=== PATIENT | male | born 1955 | race Caucasian/White ===

== ENCOUNTER 2019-04-23 21:01 | Inpatient (IN) ==
--- NOTE | 2019-04-23 21:50 | XRay Report ---
XR chest 1V portable CLINICAL HISTORY: Fever COMPARISON STUDY: No previous studies for comparison. FINDINGS: The heart is borderline enlarged. There is a right-sided A-Port catheter. There is no failu re. There are basilar opacities, atelectatic versus infectious/inflammatory[. No pleural effusions ar e visualized IMPRESSION: 1. Mild basilar opacities left greater than right. These could be atelectatic or infectious/inflammat ory. Clinical and radiographic follow-up is recommended Electronically signed by: Aidan Marques M.D. 04/23/2019 9:48 PM
[2019-04-23 22:34] LABS: BUN Creatinine Ratio 18.9 (10-20); Calcium 7.8 mg/dl (8.5-10.1); Creatinine Clr Calc Pharmacy 81.9 ml/min; Est GFR (African American) 66.1; Potassium 3.7 mmol/L (3.5-5.1)
[2019-04-23 22:37] LABS: Albumin Globulin Ratio 1.2 (0.9-2); Bilirubin,Total 0.4 mg/dl (0.2-1); Globulin 2.5 gm/dl (2.5-4.0); Total Protein 5.5 gm/dl (6.4-8.2)
[2019-04-23 22:38] LABS: Hematocrit (blood only) 32.2 % (42-52); Hemoglobin 11.2 g/dL (14.0-18.0); Mean Corpuscular Hgb Conc 34.8 g/dL (32-36); Mean Corpuscular Volume 81.3 fL (80-100); Mean Platelet Volume 8.2 fL (7.4-10.4); Platelet Count 99 K/uL (130-400); RDW Coefficient of Variation 13.1 % (11.5-14.5); RDW Standard Deviation 39.3 fL (36.4-46.3); Red Blood Count 3.96 M/uL (4.7-6.1); White Blood Count 4.99 K/uL (4.8-10.8)
[2019-04-23 22:39] LABS: Eosinophils # (auto) 0.05 K/uL (0-0.5); Immature Granulocytes # (auto) 0.06 K/uL (0.00-0.02); Immature Granulocytes % (auto) 1.2 %; Lymphocytes # (auto) 0.42 K/uL (1.2-3.4); Lymphocytes % (auto) 8.4 %; Monocytes # (auto) 0.03 K/uL (0.11-0.59); Monocytes % (auto) 0.6 %; Neutrophils # (auto) 4.43 K/uL (1.4-6.5); Neutrophils % (auto) 88.8 %; Platelet Estimate Decreased (Normal)
[2019-04-23] MEDS ORDERED: ACETAMINOPHEN 500 MG TAB PO STA (22:56)
[2019-04-23 22:58] LABS: Appearance Urine Clear (Clear); Bilirubin Urine Negative (Negative); Blood Urine Negative (Negative); Color Urine Yellow; Glucose Urine UA Negative (Negative); Ketones Urine Negative (Negative); Leukocyte Esterase Urine Negative (Negative); Nitrite Urine Negative (Negative); Protein Urine Negative (Negative); Specific Gravity Urine 1.019 (1.000-1.030); Urobilinogen Urine Positive (Negative); pH Urine 6.5 (4.5-7.5)
[2019-04-24] MEDS ORDERED: CEFEPIME 2,000 MG/20 ML VIAL IV STA (00:05)
[2019-04-24] MEDS ORDERED: DOXYCYCLINE HYCLATE 100 MG in DEXTROSE 5% 100 ML IV STA (00:05)
[2019-04-24 00:52] LABS: Lyme Ab IgG w/WB Rflx Negative (Negative); Lyme Ab IgM w/WB Rflx Negative (Negative)
--- NOTE | 2019-04-24 00:57 | Emergency Department Note ---
Entered by Devon Chawla acting as a scribe for ED Provider Note CHIEF COMPLAINT: Fever HISTORY OF PRESENT ILLNESS: The patient is a 63 year old male who presents to the Emergency Room with complaints of a fever starting [employer]. The patient states he finished up chemotherapy Saturday night after doing chemotherapy for 4 days. He notes he given Neulasta and was given Rituxan. He notes he does not feel that bad right now. He states he had chills earlier. He notes he found out about the Lymphoma a month ago. Pt denies LOC, headache, diaphoresis, visual changes, neck pain, chest pain, breathing difficulties, nausea, vomiting, abdominal pain, back pain, melena, hematochezia, urinary symptoms, numbness, weakness, lymphadenopathy, rash, or other complaints. He notes he follows up with oncology at [place]. He notes he took 2 extra strength Tylenol at 1930. REVIEW OF SYSTEMS: See HPI for pertinent positives and negatives. A total of ten systems were reviewed and were otherwise negative. PMHx/PSHx: Hodgkin lymphoma SOCIAL HISTORY: Patient lives at home. PHYSICAL EXAM: GENERAL: Awake, alert, well-appearing, in no distress HENT: Normocephalic, atraumatic. Oropharynx unremarkable. EYES: PERRL. Normal conjunctiva. Sclera non-icteric. NECK: Inspection normal. Non-tender. Supple. No nuchal rigidity. FROM. No masses. RESPIRATORY: Clear to auscultation. No wheezes. No rales. Normal respiratory effort. CARDIAC: Tachycardic rate. Normal rhythm. No murmurs. No rubs. Extremities warm and well perfused. Pulses equal. No JVD. GI: Soft, non-distended. No tenderness to palpation. No rebound or guarding. No masses. RECTAL: Deferred. MUSCULOSKELETAL: Atraumatic. Chest examination reveals no tenderness. The back is symmetrical on inspection without obvious abnormality. There is no CVA tenderness to palpation. No joint edema. 1+ edema in upper extremities bilaterally. Port in upper chest. LOWER EXTREMITIES: Calves are equal size bilaterally and non-tender. No edema. No discoloration. 1+ edema bilaterally. NEURO: Normal sensorium. No sensory or motor deficits noted. SKIN: No rash or jaundice noted. EMERGENCY DEPARTMENT COURSE: 2201: Past medical records reviewed. The patient was evaluated in room B5, and a complete history and physical examination were performed. 2355: I spoke with Dr. Patton - Hematology and Oncology. He states the patient should be given Cefepime and doxycycline. He agrees the patient should be admitted given the extensive chemotherapy. 0022: I discussed the patient's case with Dr. Call - [facility] Hospitalist. He will evaluate the patient for further management MEDICAL DECISION MAKING: B5 Prior records/ancillary studies reviewed. Medications, labs and treatment reviewed from the [facility] hospitalization. Triage Nursing notes reviewed and agree them. Additional history obtained from patient's . The patient's history was concerning for fever and recent chemotherapy. Differential diagnosis: Etiologies such as complication of chemotherapy, febrile neutropenia, otitis, pharyngitis, pneumonia, influenza,meningitis, urinary tract infection, sepsis, bacteremia, viral syndrome, as well as others were entertained. Physical examination: As above. ER treatment provided: Oral Tylenol On reassessment the patient felt better. IV cefepime IV doxycycline Diagnostics interpreted by me: The labs revealed mild anemia and thrombocytopenia on CBC. The patient had a left shift on differential. Chemistry panel was unremarkable. LFTs were elevated. Blood cultures done. Urinalysis unremarkable. Lyme and anaplasmosis testing sent. Imaging studies: Chest x-ray questioned basilar inflammatory change. Consultation: A consultation was placed with [facility] hematology oncology. The case was disc ussed and diagnostics were reviewed. Given the patient's fever and Reiger's along with his significant chemotherapy administration admission for IV antibiotics and monitoring was recommended. A consultation was placed with the [facility] hospitalist. Rate the case was discussed and diagnostics were reviewed. The patient was evaluated in the ER for further treatment. IMPRESSION: Fever, chemotherapy patient, elevated LFTs, pneumonia PLAN: Admit The scribe's documentation has been prepared under my direction and personally reviewed by me in its entirety. I confirm that the note above accurately reflects all work, treatment, procedures, and medical decision making performed by me. Impression & Plan Fever, History of chemotherapy, Elevated LFTs, PNA (pneumonia) Past Med/Surg History Medical History Hodgkin lymphoma Surgical History No pertinent past surgical history Social History Feels Safe at Home: Yes Smoking Status: Never smoker Results & Data Vital Signs Vital Signs - 24 hr 04/23/19 21:04 04/23/19 21:50 04/23/19 21:54 Temperature 37.6 C H 38.0 C H Temperature Source Oral Oral Sepsis Recent Fever Within 48 Hours Yes Sepsis New/Unexplained Change in Mental Status No Sepsis Action Taken by Nursing No Action Required Pulse Rate 120 H 103 H Pulse Rate from SpO2 Sensor 103 H Respiratory Rate 20 25 H Respiratory Effort / Characteristics Non-Labored Spontaneous Respiratory Depth Normal Blood Pressure 167/76 H 169/80 H Blood Pressure Mean 106 109 Blood Pressure Position Sitting Pulse Oximetry 92 94 Oxygen Delivery Method Room Air Room Air 04/23/19 22:00 04/23/19 23:00 04/23/19 23:05 Temperature 37.8 C H Temperature Source Oral Sepsis Recent Fever Within 48 Hours Sepsis New/Unexplained Change in Mental Status Sepsis Action Taken by Nursing Pulse Rate 101 H 90 Pulse Rate from SpO2 Sensor 102 H 91 H Respiratory Rate 24 20 Respiratory Effort / Characteristics Respiratory Depth Blood Pressure 177/85 H 159/70 H Blood Pressure Mean 115 99 Blood Pressure Position Pulse Oximetry 94 96 Oxygen Delivery Method Room Air Room Air 04/23/19 23:30 04/24/19 00:00 04/24/19 00:30 Temperature Temperature Source Sepsis Recent Fever Within 48 Hours Sepsis New/Unexplained Change in Mental Status Sepsis Action Taken by Nursing Pulse Rate 91 H 93 H 97 H Pulse Rate from SpO2 Sensor 92 H 92 H Respiratory Rate 23 25 H 27 H Respiratory Effort / Characteristics Respiratory Depth Blood Pressure 179/80 H 161/77 H 163/71 H Blood Pressure Mean 113 105 101 Blood Pressure Position Pulse Oximetry 96 94 Oxygen Delivery Method Home Medications Current Medication List: was personally reviewed by me Laboratory Data Attestation: I reviewed the patient's lab results. Result diagrams: 04/23/19 22:02 04/23/19 22:02 Lab Results 04/23/19 04/23/19 04/23/19 Range/Units 22:02 22:02 22:03 WBC 4.99 (4.8-10.8) K/uL RBC 3.96 L (4.7-6.1) M/uL Hgb 11.2 L (14.0-18.0) g/dL Hct 32.2 L (42-52) % MCV 81.3 (80-100) fL MCH 28.3 (25-34) pg MCHC 34.8 (32-36) g/dL RDW Std Deviation 39.3 (36.4-46.3) fL RDW Coeff of [place] 13.1 (11.5-14.5) % Plt Count 99 L (130-400) K/uL MPV 8.2 (7.4-10.4) fL Immature Gran % (Auto) 1.2 % Neut % (Auto) 88.8 % Lymph % (Auto) 8.4 % [place] % (Auto) 0.6 % Eos % (Auto) 1.0 % Baso % (Auto) 0.0 % Immature Gran # (Auto) 0.06 H (0.00-0.02) K/uL Neut # (Auto) 4.43 (1.4-6.5) K/uL Lymph # (Auto) 0.42 L (1.2-3.4) K/uL [place] # (Auto) 0.03 L (0.11-0.59) K/uL Eos # (Auto) 0.05 (0-0.5) K/uL Baso # (Auto) 0.00 (0-0.2) K/uL Platelet Estimate Decreased L (Normal) Sodium 141 (136-145) mmol/L Potassium 3.7 (3.5-5.1) mmol/L Chloride 104 (98-107) mmol/L Carbon Dioxide 32 (21-32) mmol/L Anion Gap 5.0 (3-11) BUN 25 H (7-18) mg/dl Creatinine 1.32 (0.6-1.4) mg/dl Est Cr Clr Drug Dosing 81.9 ml/min Est GFR ( Amer) 66.1 Est GFR (Non-Af Amer) 57.0 BUN/Creatinine Ratio 18.9 (10-20) Glucose 164 H (70-99) mg/dl POC Lactic Acid Darrel 1.87 H (0.90-1.70) mmol/L Calcium 7.8 L (8.5-10.1) mg/dl Total Bilirubin 0.4 (0.2-1) mg/dl AST 130 H (15-37) U/L ALT 395 H (12-78) U/L Alkaline Phosphatase 84 (45-117) U/L Total Protein 5.5 L (6.4-8.2) gm/dl Albumin 3.0 L (3.4-5.0) gm/dl Globulin 2.5 (2.5-4.0) gm/dl Albumin/Globulin Ratio 1.2 (0.9-2) Urine Color Urine Appearance (Clear) Urine pH (4.5-7.5) Ur Specific [place] (1.000-1.030) Urine Protein (Negative) Urine Glucose (UA) (Negative) Urine Ketones (Negative) Urine Blood (Negative) Urine Nitrite (Negative) Urine Bilirubin (Negative) Urine Urobilinogen (Negative) Ur Leukocyte Esterase (Negative) Lyme Disease IgG Ab (Negative) Lyme Disease IgM Ab (Negative) 04/23/19 04/23/19 Range/Units 22:04 22:35 WBC (4.8-10.8) K/uL RBC (4.7-6.1) M/uL Hgb (14.0-18.0) g/dL Hct (42-52) % MCV (80-100) fL MCH (25-34) pg MCHC (32-36) g/dL RDW Std Deviation (36.4-46.3) fL RDW Coeff of [place] (11.5-14.5) % Plt Count (130-400) K/uL MPV (7.4-10.4) fL Immature Gran % (Auto) % Neut % (Auto) % Lymph % (Auto) % [place] % (Auto) % Eos % (Auto) % Baso % (Auto) % Immature Gran # (Auto) (0.00-0.02) K/uL Neut # (Auto) (1.4-6.5) K/uL Lymph # (Auto) (1.2-3.4) K/uL [place] # (Auto) (0.11-0.59) K/uL Eos # (Auto) (0-0.5) K/uL Baso # (Auto) (0-0.2) K/uL Platelet Estimate (Normal) Sodium (136-145) mmol/L Potassium (3.5-5.1) mmol/L Chloride (98-107) mmol/L Carbon Dioxide (21-32) mmol/L Anion Gap (3-11) BUN (7-18) mg/dl Creatinine (0.6-1.4) mg/dl Est Cr Clr Drug Dosing ml/min Est GFR ( Amer) Est GFR (Non-Af Amer) BUN/Creatinine Ratio (10-20) Glucose (70-99) mg/dl POC Lactic Acid Darrel (0.90-1.70) mmol/L Calcium (8.5-10.1) mg/dl Total Bilirubin (0.2-1) mg/dl AST (15-37) U/L ALT (12-78) U/L Alkaline Phosphatase (45-117) U/L Total Protein (6.4-8.2) gm/dl Albumin (3.4-5.0) gm/dl Globulin (2.5-4.0) gm/dl Albumin/Globulin Ratio (0.9-2) Urine Color Yellow Urine Appearance Clear (Clear) Urine pH 6.5 (4.5-7.5) Ur Specific [place] 1.019 (1.000-1.030) Urine Protein Negative (Negative) Urine Glucose (UA) Negative (Negative) Urine Ketones Negative (Negative) Urine Blood Negative (Negative) Urine Nitrite Negative (Negative) Urine Bilirubin Negative (Negative) Urine Urobilinogen Positive H (Negative) Ur Leukocyte Esterase Negative (Negative) Lyme Disease IgG Ab Negative (Negative) Lyme Disease IgM Ab Negative (Negative) Administered Medications Doxycycline Hyclate 100 mg/ (Dextrose) 110 mls @ 50 mls/hr IV NOW STA Stop: 04/24/19 02:16 Last Admin: 04/24/19 00:23 Dose: 50 mls/hr Documented by: [id number] Discontinued Medications Acetaminophen (Tylenol) 1,000 mg PO NOW STA Stop: 04/23/19 22:57 Last Admin: 04/23/19 23:05 Dose: 1,000 mg Documented by: [id number] Cefepime HCl (Maxipime) 2,000 mg in 20 mls @ 5 mls/min IV NOW STA; Protocol Stop: 04/24/19 00:08 Last Admin: 04/24/19 00:23 Dose: 5 mls/min Documented by: [id number] Imaging Data Radiologist's Impression: Radiology results as stated below per my review and the radiologist's interpretation: XR chest 1V portable CLINICAL HISTORY: Fever COMPARISON STUDY: No previous studies for comparison. FINDINGS: The heart is borderline enlarged. There is a right-sided A-Port catheter. There is no failure. There are basilar opacities, atelectatic versus infectious/inflammatory[. No pleural effusions are visualized IMPRESSION: 1. Mild basilar opacities left greater than right. These could be atelectatic or infectious/inflammatory. Clinical and radiographic follow-up is recommended Electronically signed by: Aidan Marques M.D. 04/23/2019 9:48 PM Blood Pressure Blood Pressure Findings: Elevated blood pressure Blood Pressure Disposition: further management by hospitalist Discharge Plan Visit Data Chief Complaint: Fever Stated Complaint: FEVER 101.2 - CHEMO PT ED Provider: Cristóbal Gregory Discharge Problem: Fever, History of chemotherapy, Elevated LFTs, PNA (pneumonia) Patient Disposition: Being Evaluated by Hospitalist Forms Stand Alone Forms: [facility] Prescriptions Prescriptions: No Action fluconazole 100 mg tablet 200 mg PO DAILY RF: 0 prednisone 10 mg tablet 75 mg PO BID RF: 0 ondansetron HCl 8 mg tablet 8 mg PO Q8 PRN (Reason: Nausea) RF: 0 prochlorperazine maleate 10 mg tablet 10 mg PO Q6 PRN (Reason: Nausea) RF: 0 sulfamethoxazole-trimethoprim 800-160 mg tablet 1 tab PO DAILY RF: 0 pravastatin 80 mg tablet 80 mg PO HS RF: 0 allopurinol 300 mg tablet 300 mg PO DAILY RF: 0 acyclovir 200 mg capsule 400 mg PO BID RF: 0 losartan 100 mg tablet 100 mg PO DAILY RF: 0 oxycodone 5 mg tablet 5 mg PO Q4 PRN (Reason: Pain) RF: 0 tramadol 50 mg tablet 25 mg PO Q6 PRN (Reason: Pain) RF: 0 docusate sodium 100 mg Capsule 100 mg PO BID RF: 0 coenzyme Q10 400 mg Capsule 400 mg PO DAILY RF: 0 multivitamin Tablet 1 tab PO DAILY RF: 0 omega-3 fatty acids [Fish Oil Concentrate] 1,000 mg Capsule 1,000 mg PO BID RF: 0 sennosides [senna] 8.6 mg Tablet 17.2 mg PO HS PRN (Reason: Constipation) RF: 0 Referrals Referrals: Armando Hayward MD [Primary Care Provider] - Discharge Problem: Fever Qualifiers: Fever type: unspecified Qualified Code(s): R50.9 - Fever, unspecified PNA (pneumonia) Qualifiers: Pneumonia type: due to unspecified organism Laterality: left Lung location: unspecified part of lung Qualified Code(s): J18.9 - Pneumonia, unspecified organism The scribe's documentation has been prepared under my direction and personally reviewed by me in its entirety. I confirm that the note above accurately reflects all work, treatment, procedures, and medical decision making performed by me.
--- NOTE | 2019-04-24 01:13 | History & Physical Report ---
Date of Service April 24, 2019 Assessment & Plan (1) Severe sepsis: SIRS plus lactic acid elevation Immunocompromised patient NHL ongoing chemotherapy No obvious focus for now hypertension, elevated secondary to illness hyperlipidemia on statin Rx prediabetes, recent outpatient hemoglobin A1c was 6.12 October 2018 chronic anemia, hemoglobin at baseline Thrombocytopenia likely secondary to chemotherapy rule out HIT Abnormal LFTs attributed to Rituxan as per patient records Medical telemetry Cultures, Cefepime, Vancomycin IVF, follow lactic acid Facilitate home BP meds ISS BG goal 1 40-1 80, update hemoglobin A1c HIT screen DVT prophylaxis. SCDs RE thrombocytopenia Full code History of Present Illness Chief Complaint: Fever, chills Primary Care Provider: Armando Hayward MD History obtained from patient, family, and records. Medical history significant for NHL ongoing chemotherapy, hypertension, hyperlipidemia, prediabetes, chronic anemia baseline hemoglobin of 11. Recent confinement [facility] last week for first cycle of chemotherapy for newly diagnosed NHL. Improved neck adenopathy size as per patient. Abnormal LFTs noted yesterday on outpatient blood work attributed to possible Rituxan side effect. Yesterday, patient noted fever spikes at home 101.2 along with chills. No chest pain, S OB, abdominal pain, diarrhea, dysuria, unusual leg swelling. At the ER, patient received Doxycycline, Cefepime for sepsis. Medical History as above Surgical History : Lymph node biopsy, vascular device placement Family History : Colon cancer, breast cancer, melanoma Personal/Social history : Non-smoker, occasional EtOH intake, transportation work Allergies Allergy/AdvReac Type Severity Reaction Status Date / Time No Known Allergies Allergy Unverified 04/23/19 21:07 Home Medications Home Medications Medication Instructions Recorded Confirmed Type acyclovir 400 mg PO BID 04/23/19 04/24/19 History allopurinol 300 mg PO DAILY 04/23/19 04/24/19 History fluconazole 200 mg PO DAILY 04/23/19 04/24/19 History losartan 100 mg PO DAILY 04/23/19 04/24/19 History ondansetron HCl 8 mg PO Q8 PRN 04/23/19 04/24/19 History oxycodone 5 mg PO Q4 PRN 04/23/19 04/24/19 History pravastatin 80 mg PO HS 04/23/19 04/24/19 History prednisone 75 mg PO BID 04/23/19 04/24/19 History prochlorperazine maleate 10 mg PO Q6 PRN 04/23/19 04/24/19 History sulfamethoxazole-trimethoprim 1 tab PO DAILY 04/23/19 04/24/19 History tramadol 25 mg PO Q6 PRN 04/23/19 04/24/19 History coenzyme Q10 400 mg PO DAILY 04/24/19 04/24/19 History docusate sodium 100 mg PO BID 04/24/19 04/24/19 History multivitamin 1 tab PO DAILY 04/24/19 04/24/19 History omega-3 fatty acids [Fish Oil 1,000 mg PO BID 04/24/19 04/24/19 History Concentrate] sennosides [senna] 17.2 mg PO HS PRN 04/24/19 04/24/19 History Past Med/Surg History Medical History Hodgkin lymphoma Surgical History No pertinent past surgical history Social History Preferred Language: Icelandic Communication Ability: Effective Beliefs That Will Affect Care: None marital status: Current Living Situation: Spouse Feels Safe at Home: Yes Safety Concerns: Feels Safe At This Time Smoking Status: Never smoker Hx Alcohol Use: No Hx Substance Use: No Review of Systems Review of Systems: As per HPI, all 10 systems reviewed, all other ROS negative Physical Exam Physical Exam: GENERAL: Comfortable, slightly anxious, obese, no respiratory distress SKIN: Pallor , warm HEENT: Alopecia, pale palpebral conjunctivae, no ptosis, lower two thirds of face concealed by mask NECK : Supple, short, no tenderness CHEST : CTA, no tenderness HEART : Tachycardic , no obvious murmurs ABDOMEN: Some distention, nontender EXTREMITIES : Minimal LE swelling, no LE tenderness, no other conspicuous deformities noted NEUROLOGIC : Coherent, no facial asymmetry, no other gross focality Results & Data Vital Signs (Past 12 Hours) Vital Signs Temp Pulse Resp BP Pulse Ox 04/24/19 00:30 97 H 27 H 163/71 H 04/24/19 00:00 93 H 25 H 161/77 H 94 04/23/19 23:30 91 H 23 179/80 H 96 04/23/19 23:05 37.8 C H 04/23/19 23:00 90 20 159/70 H 96 04/23/19 22:00 101 H 24 177/85 H 94 04/23/19 21:54 103 H 25 H 169/80 H 94 04/23/19 21:50 38.0 C H 04/23/19 21:04 37.6 C H 120 H 20 167/76 H 92 Laboratory Results Laboratory Results WBC 4.99 K/uL (4.8-10.8) 04/23/19 22:02 RBC 3.96 M/uL (4.7-6.1) L 04/23/19 22:02 Hgb 11.2 g/dL (14.0-18.0) L 04/23/19 22:02 Hct 32.2 % (42-52) L 04/23/19 22:02 MCV 81.3 fL (80-100) 04/23/19 22:02 MCH 28.3 pg (25-34) 04/23/19 22:02 MCHC 34.8 g/dL (32-36) 04/23/19 22:02 RDW Std Deviation 39.3 fL (36.4-46.3) 04/23/19 22:02 RDW Coeff of [place] 13.1 % (11.5-14.5) 04/23/19 22:02 Plt Count 99 K/uL (130-400) L 04/23/19 22:02 MPV 8.2 fL (7.4-10.4) 04/23/19 22:02 Immature Gran % (Auto) 1.2 % 04/23/19 22:02 Neut % (Auto) 88.8 % 04/23/19 22:02 Lymph % (Auto) 8.4 % 04/23/19 22:02 [place] % (Auto) 0.6 % 04/23/19 22:02 Eos % (Auto) 1.0 % 04/23/19 22:02 Baso % (Auto) 0.0 % 04/23/19 22:02 Immature Gran # (Auto) 0.06 K/uL (0.00-0.02) H 04/23/19 22:02 Neut # (Auto) 4.43 K/uL (1.4-6.5) 04/23/19 22:02 Lymph # (Auto) 0.42 K/uL (1.2-3.4) L 04/23/19 22:02 [place] # (Auto) 0.03 K/uL (0.11-0.59) L 04/23/19 22:02 Eos # (Auto) 0.05 K/uL (0-0.5) 04/23/19 22:02 Baso # (Auto) 0.00 K/uL (0-0.2) 04/23/19 22:02 Platelet Estimate Decreased (Normal) L 04/23/19 22:02 Sodium 141 mmol/L (136-145) 04/23/19 22:02 Potassium 3.7 mmol/L (3.5-5.1) 04/23/19 22:02 Chloride 104 mmol/L (98-107) 04/23/19 22:02 Carbon Dioxide 32 mmol/L (21-32) 04/23/19 22:02 Anion Gap 5.0 (3-11) 04/23/19 22:02 BUN 25 mg/dl (7-18) H 04/23/19 22:02 Creatinine 1.32 mg/dl (0.6-1.4) 04/23/19 22:02 Est Cr Clr Drug Dosing 81.9 ml/min 04/23/19 22:02 Est GFR ( Amer) 66.1 04/23/19 22:02 Est GFR (Non-Af Amer) 57.0 04/23/19 22:02 BUN/Creatinine Ratio 18.9 (10-20) 04/23/19 22:02 Glucose 164 mg/dl (70-99) H 04/23/19 22:02 POC Lactic Acid Darrel 1.87 mmol/L (0.90-1.70) H 04/23/19 22:03 Calcium 7.8 mg/dl (8.5-10.1) L 04/23/19 22:02 Total Bilirubin 0.4 mg/dl (0.2-1) 04/23/19 22:02 AST 130 U/L (15-37) H 04/23/19 22:02 ALT 395 U/L (12-78) H 04/23/19 22:02 Alkaline Phosphatase 84 U/L (45-117) 04/23/19 22:02 Total Protein 5.5 gm/dl (6.4-8.2) L 04/23/19 22: Albumin 3.0 gm/dl (3.4-5.0) L 04/23/19 22:02 Globulin 2.5 gm/dl (2.5-4.0) 04/23/19 22:02 Albumin/Globulin Ratio 1.2 (0.9-2) 04/23/19 22: TSH 2.080 uIu/ml (0.300-4.500) 04/23/19 22:02 Urine Color Yellow 04/23/19 22:35 Urine Appearance Clear (Clear) 04/23/19 22:35 Urine pH 6.5 (4.5-7.5) 04/23/19 22:35 Ur Specific [place] 1.019 (1.000-1.030) 04/23/19 22:35 Urine Protein Negative (Negative) 04/23/19 22:35 Urine Glucose (UA) Negative (Negative) 04/23/19 22:35 Urine Ketones Negative (Negative) 04/23/19 22:35 Urine Blood Negative (Negative) 04/23/19 22:35 Urine Nitrite Negative (Negative) 04/23/19 22:35 Urine Bilirubin Negative (Negative) 04/23/19 22:35 Urine Urobilinogen Positive (Negative) H 04/23/19 22:35 Ur Leukocyte Esterase Negative (Negative) 04/23/19 22:35 Lyme Disease IgG Ab Negative (Negative) 04/23/19 22:04 Lyme Disease IgM Ab Negative (Negative) 04/23/19 22:04 Diagnostic Findings CX-ray: 1. Mild basilar opacities left greater than right. These could be atelectatic or infectious/inflammatory. Clinical and radiographic follow-up is recommended
[2019-04-24] MEDS: LOSARTAN POTASSIUM 50 MG TAB PO SCH (01:50)
[2019-04-24] MEDS ORDERED: SENNA 8.6 MG TAB PO PRN (03:08)
[2019-04-24] MEDS ORDERED: PROMETHAZINE HCL 12.5 MG in SODIUM CHLORIDE 0.9% 50 ML IV PRN (03:08)
[2019-04-24] MEDS ORDERED: DEXTROSE 50% 50 ML SYRINGE IV PRN (03:08)
[2019-04-24] MEDS ORDERED: GLUCOSE 10 TABS/TUBE PO PRN (03:08)
[2019-04-24] MEDS ORDERED: LACTATED RINGER'S 1,000 ML IV ONE (03:08)
[2019-04-24] MEDS ORDERED: GLUCOSE 40% GEL 15 GM TUBE PO PRN (03:08)
[2019-04-24] MEDS ORDERED: GLUCAGON FOR INJ 1 MG VIAL SQ PRN (03:08)
[2019-04-24] MEDS ORDERED: OXYCODONE HCL IR 5 MG TAB (IMMEDIATE RELEASE) PO PRN (03:08)
[2019-04-24] MEDS ORDERED: CARBOHYDRATES FOR HYPOGLYCEMIA PO PRN (03:08)
[2019-04-24] MEDS ORDERED: VANCOMYCIN CONSULT ACTIVE PRN (03:08)
[2019-04-24] MEDS ORDERED: TRAMADOL HCL 50 MG TABLET PO PRN (03:08)
[2019-04-24] MEDS ORDERED: CEFEPIME CONSULT ACTIVE PRN (04:30)
[2019-04-24] MEDS ORDERED: VANCOMYCIN HCL 2,500 MG in SODIUM CHLORIDE 0.9% 500 ML IV ONE (05:00)
[2019-04-24] MEDS: PRAVASTATIN SOD 40 MG TAB PO SCH ×2 (06:38→20:36)
[2019-04-24 07:23] LABS: Hematocrit (blood only) 31.9 % (42-52); Hemoglobin 10.9 g/dL (14.0-18.0); Mean Corpuscular Hgb Conc 34.2 g/dL (32-36); Mean Corpuscular Volume 82.4 fL (80-100); RDW Coefficient of Variation 13.3 % (11.5-14.5); RDW Standard Deviation 40.3 fL (36.4-46.3); Red Blood Count 3.87 M/uL (4.7-6.1); White Blood Count 7.86 K/uL (4.8-10.8)
[2019-04-24 07:33] LABS: Estimated Average Glucose 131 mg/dl; Hemoglobin A1C 6.2 % (4.5-5.6)
[2019-04-24] MEDS: ALLOPURINOL 300 MG TAB PO SCH (07:47)
[2019-04-24] MEDS: ACETAMINOPHEN 325 MG TAB PO PRN ×2 (07:47→19:47)
[2019-04-24] MEDS: MULTIVITAMIN TAB PO SCH (07:47)
[2019-04-24] MEDS: DOCUSATE SODIUM 100 MG CAP PO SCH ×2 (07:48→20:36)
[2019-04-24] MEDS: CEFEPIME 2,000 MG in SYRINGE 7.5 ML IV SCH ×3 (07:48→23:48)
[2019-04-24 07:53] LABS: Mean Platelet Volume 8.2 fL (7.4-10.4); Platelet Count 88 K/uL (130-400)
[2019-04-24 07:54] LABS: Eosinophils # (auto) 0.15 K/uL (0-0.5); Eosinophils % (auto) 1.9 %; Immature Granulocytes # (auto) 0.07 K/uL (0.00-0.02); Immature Granulocytes % (auto) 0.9 %; Lymphocytes # (auto) 0.44 K/uL (1.2-3.4); Lymphocytes % (auto) 5.6 %; Monocytes # (auto) 0.01 K/uL (0.11-0.59); Monocytes % (auto) 0.1 %; Neutrophils # (auto) 7.19 K/uL (1.4-6.5); Neutrophils % (auto) 91.5 %
[2019-04-24 08:01] LABS: Albumin Level 2.9 gm/dl (3.4-5.0); BUN Creatinine Ratio 15.8 (10-20); Creatinine Clr Calc Pharmacy 86.3 ml/min; Est GFR (African American) 71.3; Est GFR (Non-African American) 61.5; Potassium 3.8 mmol/L (3.5-5.1)
[2019-04-24 08:04] LABS: Albumin Globulin Ratio 1.2 (0.9-2); Bilirubin,Total 0.6 mg/dl (0.2-1); Globulin 2.4 gm/dl (2.5-4.0); Total Protein 5.4 gm/dl (6.4-8.2)
[2019-04-24] MEDS: INSULIN ASPART 100 UNITS/ML 3 ML PEN SC SCH ×4 (08:26→20:38)
[2019-04-24] MEDS: FLUCONAZOLE 100 MG TAB PO SCH (08:31)
[2019-04-24] MEDS: ACYCLOVIR 200 MG CAP PO SCH ×2 (08:32→20:36)
--- NOTE | 2019-04-24 14:02 | Pharmacy Report ---
Pharmacy Abx Initial Consult - Date of Service April 24, 2019 - Pharmacy Dosing Scope Date of Consult: 04/24/19 Consultation requested by: Dr. Call Pharmacy is consulted to initiate Vancomycin and Cefepime IV/PO dosing therapy, order appropriate labs and adjust drug dose/frequency. - Subjective The patient is a 63 year old M admitted on 04/24/19 01:15. - Objective Height: 6 ft 3 in Weight: 123.3 kg Vital Signs (Past 12hrs): Vital Signs Temp Pulse Pulse Pulse Resp BP BP 04/24/19 12:00 37.0 C 75 18 04/24/19 10:20 94 H 04/24/19 07:00 39.1 C H 89 20 04/24/19 03:39 93 H 04/24/19 03:30 36.6 C 102 H 19 162/82 H 04/24/19 03:12 37.5 C 91 H 20 173/79 H 04/24/19 02:40 37.8 C H 89 18 164/69 H 04/24/19 02:00 98 H 21 166/68 H 04/24/19 01:57 90 22 165/65 H BP Pulse Ox 04/24/19 12:00 159/74 H 95 04/24/19 10:20 04/24/19 07:00 149/55 H 94 04/24/19 03:39 04/24/19 03:30 94 04/24/19 03:12 94 04/24/19 02:40 96 04/24/19 02:00 96 04/24/19 01:57 95 Lab Results (24hrs): Laboratory Tests (24 Hours) 04/24/19 04/24/19 04/23/19 07:10 07:10 22:02 WBC 7.86 Neut # (Auto) 7.19 H Creatinine 1.24 1.32 Est Cr Clr Drug Dosing 86.3 81.9 04/23/19 22:02 WBC 4.99 Neut # (Auto) 4.43 Creatinine Est Cr Clr Drug Dosing Micro Results: 04/23/19 22:16 Aerobic Blood Culture - Pending Blood Anaerobic Blood Culture - Pending 04/23/19 22:02 Aerobic Blood Culture - Pending Blood Anaerobic Blood Culture - Pending - Risk Factors for Resistance * Immunocompromised (chemotherapy) * Anti-infective use within the last 90 days: chronic prophylaxis with Acyclovir and Diflucan - Assessment & Plan Assessment 63 year old M admitted 04/23/19 with sepsis/fever on chemotherapy Pertinent past medical history includes Non-Hodgkin's Lymphoma currently being treated with Rituxan Patient was febrile upon admission but was not neutropenic; however, patient does report receiving Neulasta which could mask this finding Plan IV Vancomycin and Cefepime for treatment of fever s/p chemotherapy Vancomycin IV * Estimated PK Parameters: Vd 0.55 L/kg, Shan 0.071 hr-1, t1/2 9.1 hrs * Loading dose: 2500 mg (~ 20 mg/kg) * Maintenance dose: 1750 mg IV (~ 14 mg/kg) every 12 hours * Goal trough level for sepsis: 15 to 20 mcg/mL * Trough level ordered for 04/26/19 prior to the 4th dose Cefepime * 2 gram IV x 1 in the ED * Started 1 gram IV every 8 hours Pharmacy will continue to follow and will adjust dose/frequency as necessary. Thank you.
--- NOTE | 2019-04-24 16:39 | Hospitalist Progress Note ---
Date of Service April 24, 2019 Assessment & Plan (1) Severe sepsis: SIRS: Likely secondary to Chemotherapy Immunocompromised patient CXR:Mild basilar opacities left greater than right. These could be atelectatic or infectious/inflammatory. Clinical and radiographic follow-up is recommended Received Neulasta prior to admission Blood Cultures:Pending Normal Lactate levels Continue Empiric Abx: Vanco, Cefepime Received IV fluids Continue acyclovir, Diflucan Continue Supportive Care NHL Ongoing chemotherapy Follows with [facility] Hypertension Mildly elevated Continue Losartan Monitor Hyperlipidemia on statin Prediabetes Hb A1C:6.2 Chronic anemia Thrombocytopenia Likely secondary to chemotherapy, Chronic disease Monitor CBC Abnormal LFTs Likely due to Rituxan Monitor LFTs DVT Px: SCDs Re:thrombocytopenia Code Status Full code Disposition: Expect to discharge home when stable Subjective Patient is seen and examined at bedside Febrile this morning Offers no complaints Denies any chest pain, shortness of breath, nausea, dizziness, abdominal pain Eager to get discharged Review of Systems Review of Systems: All systems reviewed & are unremarkable except as noted in HPI & below Physical Exam Physical Exam: Physical Exam: Vitals signs as noted above General Appearance:Moderately built and nourished, no apparent distress Head: normocephalic, Atraumatic Eyes: normal inspection, EOMI Neck: supple, Trachea midline Respiratory/Chest: Normal breath sounds, CTA Cardiovascular: S1, S2, No murmur Abdomen/GI:Soft, Non tender, Bowel sounds present Extremities/Musculoskelatal:normal inspection, B/L LE pretibial edema Neurologic/Psych:AAOX3, grossly no focal neurological deficits Skin: normal color, warm Results & Data Vital Signs (Past 12 Hours) Vital Signs Temp Pulse Pulse Pulse Resp BP Pulse Ox 04/24/19 15:00 37.1 C 88 20 163/79 H 96 04/24/19 12:00 37.0 C 75 18 159/74 H 95 04/24/19 10:20 94 H 04/24/19 07:00 39.1 C H 89 20 149/55 H 94 Laboratory Results Short CBC 04/23/19 04/24/19 Range/Units 22:02 07:10 WBC 4.99 7.86 (4.8-10.8) K/uL Hgb 11.2 L 10.9 L (14.0-18.0) g/dL Hct 32.2 L 31.9 L (42-52) % Plt Count 99 L 88 L (130-400) K/uL BMP 04/23/19 04/24/19 22:02 07:10 Sodium 141 138 Potassium 3.7 3.8 Chloride 104 102 Carbon Dioxide 32 33 H BUN 25 H 20 H Creatinine 1.32 1.24 Glucose 164 H 123 H Calcium 7.8 L 8.0 L Liver Function 04/23/19 04/24/19 Range/Units 22:02 07:10 Total Bilirubin 0.4 0.6 (0.2-1) mg/dl AST 130 H 95 H (15-37) U/L ALT 395 H 360 H (12-78) U/L Alkaline Phosphatase 84 79 (45-117) U/L Albumin 3.0 L 2.9 L (3.4-5.0) gm/dl Urine 04/23/19 Range/Units 22:35 Urine Color Yellow Urine Appearance Clear (Clear) Urine pH 6.5 (4.5-7.5) Ur Specific [place] 1.019 (1.000-1.030) Urine Protein Negative (Negative) Urine Glucose (UA) Negative (Negative)
[2019-04-24] MEDS ORDERED: VANCOMYCIN HCL 2,000 MG in SODIUM CHLORIDE 0.9% 500 ML IV STA (21:33)
[2019-04-25 06:47] LABS: Hematocrit (blood only) 34.4 % (42-52); Hemoglobin 11.8 g/dL (14.0-18.0); Mean Corpuscular Hgb Conc 34.3 g/dL (32-36); Mean Corpuscular Volume 82.5 fL (80-100); Mean Platelet Volume 8.5 fL (7.4-10.4); Platelet Count 101 K/uL (130-400); RDW Coefficient of Variation 13.2 % (11.5-14.5); RDW Standard Deviation 40.1 fL (36.4-46.3); Red Blood Count 4.17 M/uL (4.7-6.1); White Blood Count 5.87 K/uL (4.8-10.8)
[2019-04-25 07:18] LABS: Albumin Level 3.2 gm/dl (3.4-5.0); BUN Creatinine Ratio 16.1 (10-20); Calcium 8.4 mg/dl (8.5-10.1); Creatinine Clr Calc Pharmacy 97.1 ml/min; Est GFR (African American) 84.2; Est GFR (Non-African American) 72.7
[2019-04-25 07:20] LABS: Basophils # (auto) 0.01 K/uL (0-0.2); Basophils % (auto) 0.2 %; Eosinophils # (auto) 0.17 K/uL (0-0.5); Eosinophils % (auto) 2.9 %; Immature Granulocytes # (auto) 0.11 K/uL (0.00-0.02); Immature Granulocytes % (auto) 1.9 %; Lymphocytes # (auto) 0.72 K/uL (1.2-3.4); Lymphocytes % (auto) 12.3 %; Monocytes # (auto) 0.01 K/uL (0.11-0.59); Monocytes % (auto) 0.2 %; Neutrophils # (auto) 4.85 K/uL (1.4-6.5); Neutrophils % (auto) 82.5 %
[2019-04-25 07:21] LABS: Albumin Globulin Ratio 1.2 (0.9-2); Bilirubin,Total 0.9 mg/dl (0.2-1); Globulin 2.8 gm/dl (2.5-4.0)
[2019-04-25] MEDS: CEFEPIME 2,000 MG in SYRINGE 7.5 ML IV SCH (07:58)
[2019-04-25] MEDS: ACYCLOVIR 200 MG CAP PO SCH (07:59)
[2019-04-25] MEDS: DOCUSATE SODIUM 100 MG CAP PO SCH (07:59)
[2019-04-25] MEDS: FLUCONAZOLE 100 MG TAB PO SCH (08:00)
[2019-04-25] MEDS: LOSARTAN POTASSIUM 50 MG TAB PO SCH (08:00)
[2019-04-25] MEDS: MULTIVITAMIN TAB PO SCH (08:00)
[2019-04-25] MEDS: ALLOPURINOL 300 MG TAB PO SCH (08:01)
[2019-04-25] MEDS: INSULIN ASPART 100 UNITS/ML 3 ML PEN SC SCH ×2 (08:08→11:56)
[2019-04-25] MEDS ORDERED: VANCOMYCIN HCL 1,750 MG in SODIUM CHLORIDE 0.9% 500 ML IV SCH (10:00)
--- NOTE | 2019-04-25 12:25 | Hospitalist Progress Note ---
Date of Service April 25, 2019 Assessment & Plan (1) Severe sepsis: SIRS: Likely secondary to Chemotherapy Immunocompromised patient CXR:Mild basilar opacities left greater than right. These could be atelectatic or infectious/inflammatory. Clinical and radiographic follow-up is recommended Received Neulasta prior to admission Blood Cultures:No growth to date Normal Lactate levels On Empiric Abx: Vanco, Cefepime Received IV fluids Continue acyclovir, Diflucan Continue Supportive Care Will resume home PO Abx upon discharge NHL Ongoing chemotherapy Follows with [facility] Hypertension Stable Continue Losartan Monitor Hyperlipidemia on statin Prediabetes Hb A1C:6.2 Chronic anemia Thrombocytopenia Likely secondary to chemotherapy, Chronic disease Monitor CBC Abnormal LFTs Likely due to Rituxan Monitor LFTs:Trending down DVT Px: SCDs Re:thrombocytopenia Code Status Full code Disposition: Plan to discharge home today Subjective Patient is seen and examined at bedside Doing much better today Offers no complains Afebrile today Denies any chest pain, shortness of breath, nausea, dizziness, abdominal pain Family at bedside Eager to get discharged Review of Systems Review of Systems: All systems reviewed & are unremarkable except as noted in HPI & below Physical Exam Physical Exam: Physical Exam: Vitals signs as noted above General Appearance:Moderately built and nourished, no apparent distress Head: normocephalic, Atraumatic Eyes: normal inspection, EOMI Neck: supple, Trachea midline Respiratory/Chest: Normal breath sounds, CTA Cardiovascular: S1, S2, No murmur Abdomen/GI:Soft, Non tender, Bowel sounds present Extremities/Musculoskelatal:normal inspection, B/L LE pretibial edema Neurologic/Psych:AAOX3, grossly no focal neurological deficits Skin: normal color, warm Results & Data Vital Signs (Past 12 Hours) Vital Signs Temp Pulse Pulse Resp BP BP Pulse Ox 04/25/19 08:15 80 04/25/19 07:46 37.2 C 86 18 128/76 94 04/25/19 04:00 37.2 C 86 18 170/76 H 95 Laboratory Results Short CBC 04/25/19 Range/Units 06:15 WBC 5.87 (4.8-10.8) K/uL Hgb 11.8 L (14.0-18.0) g/dL Hct 34.4 L (42-52) % Plt Count 101 L (130-400) K/uL BMP 04/25/19 06:15 Sodium 140 Potassium 4.0 Chloride 100 Carbon Dioxide 35 H BUN 17 Creatinine 1.08 Glucose 138 H Calcium 8.4 L Liver Function 04/25/19 Range/Units 06:15 Total Bilirubin 0.9 (0.2-1) mg/dl AST 45 H (15-37) U/L ALT 276 H (12-78) U/L Alkaline Phosphatase 87 (45-117) U/L Albumin 3.2 L (3.4-5.0) gm/dl
--- NOTE | 2019-04-25 12:31 | Discharge Summary ---
Date of Service April 25, 2019 Admission HPI Per Admitting Provider History obtained from patient, family, and records. Medical history significant for NHL ongoing chemotherapy, hypertension, hyperlipidemia, prediabetes, chronic anemia baseline hemoglobin of 11. Recent confinement [facility] last week for first cycle of chemotherapy for newly diagnosed NHL. Improved neck adenopathy size as per patient. Abnormal LFTs noted yesterday on outpatient blood work attributed to possible Rituxan side effect. Yesterday, patient noted fever spikes at home 101.2 along with chills. No chest pain, S OB, abdominal pain, diarrhea, dysuria, unusual leg swelling. At the ER, patient received Doxycycline, Cefepime for sepsis. Medical History as above Surgical History : Lymph node biopsy, vascular device placement Family History : Colon cancer, breast cancer, melanoma Personal/Social history : Non-smoker, occasional EtOH intake, transportation work Admission Exam Per Admitting Provider GENERAL: Comfortable, slightly anxious, obese, no respiratory distress SKIN: Pallor , warm HEENT: Alopecia, pale palpebral conjunctivae, no ptosis, lower two thirds of face concealed by mask NECK : Supple, short, no tenderness CHEST : CTA, no tenderness HEART : Tachycardic , no obvious murmurs ABDOMEN: Some distention, nontender EXTREMITIES : Minimal LE swelling, no LE tenderness, no other conspicuous deformities noted NEUROLOGIC : Coherent, no facial asymmetry, no other gross focality Principal Diagnosis Discharge Information Discharge Diagnosis Systemic inflammatory response syndrome Lymphoma Discharge Goals Decrease discomfort,Improve function,Improve disease control Discharge Activity Limitations Resume your previous activity Discharge Data Allergies Allergy/AdvReac Type Severity Reaction Status Date / Time No Known Allergies Allergy Unverified 04/23/19 21:07 Consultations 04/24/19 00:08 ED Decision to Admit Stat Procedures Performed CXR: Mild basilar opacities left greater than right. These could be atelectatic or infectious/inflammatory. Clinical and radiographic follow-up is recommended Hospital Course (1) Severe sepsis: SIRS: Likely secondary to Chemotherapy Immunocompromised patient CXR:Mild basilar opacities left greater than right. These could be atelectatic or infectious/inflammatory. Clinical and radiographic follow-up is recommended Received Neulasta prior to admission Blood Cultures:No growth to date Normal Lactate levels On Empiric Abx: Vanco, Cefepime Received IV fluids Continue acyclovir, Diflucan Continue Supportive Care Will resume home PO Abx upon discharge NHL Ongoing chemotherapy Follows with [facility] Hypertension Stable Continue Losartan Monitor Hyperlipidemia on statin Prediabetes Hb A1C:6.2 Chronic anemia Thrombocytopenia Likely secondary to chemotherapy, Chronic disease Monitor CBC Abnormal LFTs Likely due to Rituxan Monitor LFTs:Trending down DVT Px: SCDs Re:thrombocytopenia Code Status Full code Disposition: Plan to discharge home today Total Time Total Time Spent Total Time Spent (In Minutes): 35 minutes Total Time Includes: Examination of the Patient, Discharge Planning, Medication Reconciliation and Other Discharge Plan Discharge Items Patient Disposition: Home - Self-Care Reason For Visit: SEPSIS Discharge Diagnosis: Systemic inflammatory response syndrome Lymphoma Discharge Goals: Decrease discomfort, Improve disease control and Improve function Activity: Resume your previous activity Exercise/Sports: Gradually increase as tolerated Non-emergency contact: Primary Care Provider and Oncologist Call non-emergency contact if: you have any medication questions, your symptoms worsen, your pain is not controlled, your pain is worsening, your pain is unusual for you, your pain is concerning for you and you have a fever Follow-up/Referrals: Armando Hayward MD [Primary Care Provider] - Diet: Heart Healthy Addtl Provider Instructions: Follow-up with your primary care physician Dr. Mathis in 1 week as advised Follow-up with your oncologist Dr. Cruz as scheduled Follow-up with your physician regarding blood cultures which are currently pending at the time of discharge. Seek immediate medical attention if your symptoms reoccur or worsen Prescriptions: Continued fluconazole 100 mg tablet 200 mg PO DAILY RF: 0 prednisone 10 mg tablet 75 mg PO BID RF: 0 ondansetron HCl 8 mg tablet 8 mg PO Q8 PRN (Reason: Nausea) RF: 0 prochlorperazine maleate 10 mg tablet 10 mg PO Q6 PRN (Reason: Nausea) RF: 0 sulfamethoxazole-trimethoprim 800-160 mg tablet 1 tab PO DAILY RF: 0 pravastatin 80 mg tablet 80 mg PO HS RF: 0 allopurinol 300 mg tablet 300 mg PO DAILY RF: 0 acyclovir 200 mg capsule 400 mg PO BID RF: 0 losartan 100 mg tablet 100 mg PO DAILY RF: 0 oxycodone 5 mg tablet 5 mg PO Q4 PRN (Reason: Pain) RF: 0 tramadol 50 mg tablet 25 mg PO Q6 PRN (Reason: Pain) RF: 0 docusate sodium 100 mg Capsule 100 mg PO BID RF: 0 coenzyme Q10 400 mg Capsule 400 mg PO DAILY RF: 0 multivitamin Tablet 1 tab PO DAILY RF: 0 omega-3 fatty acids [Fish Oil Concentrate] 1,000 mg Capsule 1,000 mg PO BID RF: 0 sennosides [senna] 8.6 mg Tablet 17.2 mg PO HS PRN (Reason: Constipation) RF: 0 Stand-Alone Forms: [facility]/Other Patient Handouts: Prediabetes, Spirometer Incentive, Diabetes Meal Planning Discharge Orders: Discharge Order (Routine); Ordered 04/25/19 Ordered By: John Daivs Admission Data Admit Date/Time: 04/24/19 01:15 Attending Provider: John Davis Admit Provider: Jn Call Primary Care Provider: Armando Hayward Other Providers: Jn Call Service: Telemetry Medical Other Interventions: Discharge Summary Assessment (RN) Last Done: 04/25/19 13:39 Pending Studies at Discharge: Yes Studies:: Serological work-up Blood cultures DC Date/Time DO NOT enter until pt leaves facility: 04/25/19 14:01
[2019-04-26] MEDS ORDERED: VANCOMYCIN TROUGH ONE ×2 (04:30→09:30)
== END 2019-04-25 14:01 | disposition home or self-care (01) | DRG 872 ==
LOC: ED 21:01 → 2W 04-24 01:15

== ENCOUNTER 2024-03-20 11:44 | Inpatient (IN) ==
[2024-03-20 13:11] LABS: Basophils # (auto) 0.04 K/uL (0.00-0.20); Basophils % (auto) 0.4 %; Hematocrit (blood only) 38.1 % (42.0-52.0); Hemoglobin 12.4 g/dl (14.0-18.0); Immature Granulocytes % (auto) 0.9 %; Lymphocytes # (auto) 0.63 K/uL (1.20-3.40); Mean Corpuscular Hemoglobin 27.9 pg (25.0-34.0); Mean Corpuscular Hgb Conc 32.5 g/dL (32.0-36.0); Mean Corpuscular Volume 85.6 fL (80.0-100.0); Mean Platelet Volume 9.4 fL (9.4-12.4); Monocytes # (auto) 1.01 K/uL (0.11-0.59); Monocytes % (auto) 9.5 %; Neutrophils % (auto) 83.2 %; Platelet Count 227 K/uL (130-400); RDW Coefficient of Variation 12.8 % (11.5-14.5); RDW Standard Deviation 39.5 fL (36.4-46.3); Red Blood Count 4.45 M/uL (4.70-6.10); White Blood Count 10.58 K/ul (4.8-10.8)
--- NOTE | 2024-03-20 13:19 | Emergency Department Note ---
Impression & Plan Hypoxia, Elevated troponin, Mycoplasma pneumonia, SOB (shortness of breath), Pneumonia ED Provider Note NAME: CALVIN CAN AGE: 68 SEX: M : 1955 ARRIVES VIA: Walk-In INFORMANT: [Patient][] ED PROVIDER(S): [Valentin Saleh MD] CHIEF COMPLAINT: Shortness of breath HISTORY OF PRESENT ILLNESS: The patient is a 68-year-old male whose had 1 week of symptoms. He has had cough, congestion, shortness of breath and fever. He states that his grandson had a cold and he thought he initially just caught this cold however, he just cannot seem to improve. He has not had vomiting, no diarrhea. He has no diagnosed lung disease. He is on oral chemotherapy though. He has a history of having non-Hodgkin's lymphoma as well as prostate cancer. The patient went to [facility] today and his O2 saturation was in the mid 80s. He was referred to the ER. He is now on a small amount of oxygen. PMHx/PSHx/Social Hx: See Below PHYSICAL EXAM: GENERAL: Patient is in no acute distress. HEENT: No acute trauma, normocephalic atraumatic, mucous membranes moist, no nasal congestion. NECK: No stridor, no adenopathy, no meningismus, trachea is midline. LUNGS: Diminished breath sounds bilaterally with a moist cough noted. Does have some crackles at the right lower lung. No wheezing. HEART: Mildly tachycardic, regular rhythm, no obvious murmur. ABDOMEN: Soft, nontender, no peritonitis. EXTREMITIES: No cyanosis, full range of motion of all the joints without pain or difficulty. Subtle bilateral pedal edema. NEUROLOGIC: Oriented x 3, no acute motor or sensory deficits, no focal weakness. SKIN: No jaundice, no diaphoresis. DIFFERENTIAL DIAGNOSIS: Bronchitis or pneumonia, dysrhythmia, cardiac ischemia, anemia, COVID-19 or RSV, immunocompromise, among others. EMERGENCY DEPARTMENT PROCEDURES: MEDICAL DECISION MAKING: There is no leukocytosis. A mild anemia was seen however, this appears baseline looking back at previous testing. There was a normal platelet count. No coagulopathy. No renal failure or significant electrolyte abnormality. Lactic acid level was not elevated making severe sepsis less likely. There were some elevated liver enzymes, bilirubin was 2.2. BNP was not elevated making CHF less likely. ECG showed a normal sinus rhythm, no ischemia or dysrhythmia. Cardiac enzyme testing x 1 is slightly elevated. This troponin elevation could be secondary to cardiac injury or potentially just mismatch from his hypoxia. Respiratory bio fire was positive for mycoplasma pneumonia. Chest x-ray shows a bilateral lower lobe pneumonia. No pneumothorax. On exam, patient did have diminished breath sounds with some crackles at his bases. He was coughing. He was not febrile. Patient was maintained on nasal cannula O2 supplementation. He received a DuoNeb, IV Solu-Medrol, IV ceftriaxone and IV Zithromax. Patient is in need of a hospital stay. He presents hypoxic and short of breath. He was found to have pneumonia, possibly mycoplasma pneumonia. He does carry a history of immunocompromise. I did speak with the patient and case management, the on-call hospitalist was consulted. Prior/Outside records/notes reviewed: Today's notes from [facility] talking about his presentation and low O2 saturation as well as the need for an ED referral ECG per my interpretation: Indication was shortness of breath. The ECG shows a normal sinus rhythm with a rate of 92. There is some baseline artifact. There is no acute ST elevation, no PVCs. The QTc is 408. Continuous Cardiac Monitoring per my interpretation: An order was placed for continuous cardiac monitoring. The monitor shows a rate of 99 with normal sinus rhythm. Imaging/x-ray results per my interpretation: Chest x-ray does show bilateral lower lung infiltrates, slightly worse on the left. No pneumothorax Chronic Medical/Social conditions affecting care: History of non-Hodgkin's lymphoma as well as prostate cancer. Care/Management discussed with: Case management, the on-call hospitalist. Level of care consideration(s): After review of the information above and other included data: --I believe the patient requires escalation of care to admission Critical Care Note: I have personally spent 43 minutes of critical care time in the direct management of this patient. This includes bedside care, interpretation of diagnostic studies, and testing, discussion with consultants, patient, and family members, and other required patient management activities. This 43 minutes is in excess of all separately billable procedures. 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 HLD (hyperlipidemia) HTN (hypertension) Surgical History (Updated 03/20/24 @ 15:09 by SHAAN Beckett) History of back surgery Social History Smoking Status: Never smoker Hx Alcohol Use: No Hx Substance Use: No Preferred Language: [place] Communication Ability: Effective Beliefs That Will Affect Care: None marital status: Current Living Situation: Spouse Feels Safe at Home: Yes Assistive Devices: None Allergies Allergies Allergy/AdvReac Type Severity Reaction Status Date / Time No Known Allergies Allergy Unverified 04/23/19 21:07 Home Meds Home Medications Medication Instructions Recorded Confirmed losartan 100 mg tablet 100 mg PO HS 04/23/19 03/20/24 pravastatin 80 mg tablet 80 mg PO HS 04/23/19 03/20/24 coenzyme Q10 400 mg capsule 400 mg PO DAILY 04/24/19 03/20/24 multivitamin 1 tab PO DAILY 04/24/19 03/20/24 omega-3 fatty acids 1,000 mg 1,000 mg PO DAILY 04/24/19 03/20/24 capsule (Fish Oil Concentrate) amlodipine 5 mg tablet 5 mg PO DAILY 03/20/24 03/20/24 gabapentin 300 mg capsule 300 mg PO HS 03/20/24 03/20/24 hydrochlorothiazide 25 mg tablet 25 mg PO DAILY 03/20/24 03/20/24 ibrutinib 420 mg tablet (Imbruvica) 420 mg PO HS 03/20/24 03/20/24 Results & Data (ED) Vital Signs Vital Signs - 24 hr 03/20/24 12:38 03/20/24 12:45 03/20/24 13:37 Temperature 37.1 C Temperature Source Oral Pulse Rate 99 H Pulse Rate [Apical] 93 H Respiratory Rate 18 18 Respiratory Effort / Characteristics Non-Labored Spontaneous Respiratory Depth Normal Blood Pressure 164/79 H Blood Pressure [Right Arm] 172/73 H Blood Pressure Mean 107 Blood Pressure Mean [Right Arm] 106 Blood Pressure Position Sitting Pulse Oximetry 93 85 L 94 Oxygen Delivery Method Nasal Cannula Nasal Cannula Nasal Cannula Oxygen Flow Rate 2 2 Sepsis Recent Fever Within 48 Hours No Sepsis New/Unexplained Change in Mental Status N/A Sepsis Action Taken by Nursing No Action Required Oxygen Flow Rate - Titration 2 Pulse Oximetry Post Tiitration 93 03/20/24 13:37 Temperature Temperature Source Pulse Rate Pulse Rate [Apical] Respiratory Rate Respiratory Effort / Characteristics Respiratory Depth Blood Pressure Blood Pressure [Right Arm] Blood Pressure Mean Blood Pressure Mean [Right Arm] Blood Pressure Position Pulse Oximetry 94 Oxygen Delivery Method Nasal Cannula Oxygen Flow Rate Sepsis Recent Fever Within 48 Hours Sepsis New/Unexplained Change in Mental Status Sepsis Action Taken by Nursing Oxygen Flow Rate - Titration Pulse Oximetry Post Tiitration Home Medications Current Medication List: was personally reviewed by me Laboratory Data Attestation: I reviewed the patient's lab results. 03/20/24 12:54 03/20/24 12:54 Lab Results 03/20/24 03/20/24 03/20/24 Range/Units 12:54 13:58 14:05 WBC 10.58 (4.8-10.8) K/ul RBC 4.45 L (4.70-6.10) M/uL Hgb 12.4 L (14.0-18.0) g/dl Hct 38.1 L (42.0-52.0) % MCV 85.6 (80.0-100.0) fL MCH 27.9 (25.0-34.0) pg MCHC 32.5 (32.0-36.0) g/dL RDW Std Deviation 39.5 (36.4-46.3) fL RDW Coeff of [place] 12.8 (11.5-14.5) % Plt Count 227 (130-400) K/uL MPV 9.4 (9.4-12.4) fL Immature Gran % (Auto) 0.9 % Neut % (Auto) 83.2 % Lymph % (Auto) 6.0 % Williams % (Auto) 9.5 % Eos % (Auto) 0.0 % Baso % (Auto) 0.4 % Neut # (Auto) 8.80 H (1.40-6.50) K/uL Lymph # (Auto) 0.63 L (1.20-3.40) K/uL Williams # (Auto) 1.01 H (0.11-0.59) K/uL Eos # (Auto) 0.00 (0.00-0.50) K/uL Baso # (Auto) 0.04 (0.00-0.20) K/uL Immature Gran # (Auto) 0.10 (0.01-0.20) K/uL PT 11.5 (9.0-12.0) Seconds INR 1.1 (0.9-1.1) APTT 25 (21-31) Seconds PTT Ratio 0.9 Sodium 132 L (136-145) mmol/L Potassium 4.2 (3.5-5.1) mmol/L Chloride 95 L (98-107) mmol/L Carbon Dioxide 29 (21-32) mmol/L Anion Gap 8 (3-11) BUN 16 (6-23) mg/dl Creatinine 1.10 (0.6-1.4) mg/dl Est Cr Clr Drug Dosing Not Reportable Est GFR ( Amer) 79.5 ml/min Est GFR (Non-Af Amer) 68.6 ml/min BUN/Creatinine Ratio 14.5 (10-20) Glucose 151 H (70-99(Fasting)) mg/dl Lactate 1.0 (0.4-2.0) mmol/L Calcium 9.0 (8.6-10.3) mg/dl Magnesium 2.0 (1.7-2.4) mg/dl Total Bilirubin 2.2 H (0.2-1.0) mg/dl AST 31 (13-39) U/L ALT 68 H (7-52) U/L Alkaline Phosphatase 180 H (34-104) U/L Troponin I High Sens 33.8 H (0-20) pg/ml B-Natriuretic Peptide 61 (0-100) pg/ml Total Protein 7.3 (6.0-8.3) gm/dl Albumin 4.0 (3.4-5.0) gm/dl Globulin 3.3 (2.5-4.0) gm/dl Albumin/Globulin Ratio 1.2 (0.9-2) Adenovirus (PCR) Not Detected (NotDetected) B. pertussis DNA (PCR) Not Detected (NotDetected) B.parapertussis DNA PCR Not Detected (NotDetected) C. pneumoniae DNA (PCR) Not Detected (NotDetected) Coronavirus OC43 (PCR) Not Detected (NotDetected) Coronavirus HKU1 (PCR) Not Detected (NotDetected) Coronavirus 229E (PCR) Not Detected (NotDetected) SARS-CoV-2 (PCR) Not Detected (NotDetected) Coronavirus NL63 (PCR) Not Detected (NotDetected) Human Metapneumovir PCR Not Detected (NotDetected) Influenza Type A (PCR) Not Detected (NotDetected) Influenza Type B (PCR) Not Detected (NotDetected) M. pneumoniae (PCR) DETECTED A (NotDetected) Parainfluenza 1 (PCR) Not Detected (NotDetected) Parainfluenza 2 (PCR) Not Detected (NotDetected) Parainfluenza 3 (PCR) Not Detected (NotDetected) Parainfluenza 4 (PCR) Not Detected (NotDetected) RSV (PCR) Not Detected (NotDetected) Entero/Rhino (PCR) Not Detected (NotDetected) Administered Medications Azithromycin 500 mg/ Dextrose 255 mls @ 125 mls/hr IV NOW ONE Stop: 03/20/24 16:08 Last Admin: 03/20/24 15:05 Dose: 125 mls/hr Documented By: GUILLE Discontinued Medications Albuterol (Albut/Ipratrop 3mg/0.5mg Neb 3 Ml Vial) 3 ml NEB NOW STA; Protocol Stop: 03/20/24 13:16 Last Admin: 03/20/24 13:26 Dose: 3 ml Documented By: GUILLE Ceftriaxone Sodium (Rocephin) 2,000 mg in 50 mls @ 100 mls/hr IV NOW STA Stop: 03/20/24 13:44 Last Infusion: 03/20/24 14:20 Dose: Infused Documented By: Admin: 03/20/24 13:25 Dose: 100 mls/hr Documented By: GUILLE Methylprednisolone (Methylprednisolone 125 Mg/2 Ml Vial) 60 mg IV NOW STA Stop: 03/20/24 13:16 Last Admin: 03/20/24 13:28 Dose: 60 mg Documented By: GUILLE Imaging Data Radiologist's Impression: Chest X-Ray 03/20/24 12:51 XR chest 1V portable HISTORY: 68 years-old Male Chest pain, nonspecific COMPARISON: 04/23/2019 TECHNIQUE: AP view of the chest FINDINGS: Cardiac silhouette is enlarged. Mixed interstitial and alveolar opacities of the lungs are new from prior. Status post removal of the Mnnldn-y-Dlao catheter. No pneumothorax or pleural effusion. IMPRESSION: Cardiomegaly with mixed interstitial and alveolar opacities suggestive of multifocal pneumonia versus pulmonary edema. ACT 112: Negative or not required by law. The above report was generated using voice recognition software. It may contain grammatical, syntax or spelling errors. Electronically signed by: Kvng Currie M.D. 03/20/2024 1:26 PM Discharge Plan Visit Data Chief Complaint: Shortness of Breath/Dyspnea Stated Complaint: REFERRED BY , POSSIBLE PNEUMONIA ED Provider: Valentin Saleh Discharge Problem: Hypoxia, Elevated troponin, Mycoplasma pneumonia, SOB (shortness of breath), Pneumonia Patient Disposition: Admitted As Inpatient Condition: Fair Discharge Instructions Interventions: ED Discharge Assessment Last Done: 03/20/24 15:30 Discharge Problem: Mycoplasma pneumonia Qualifiers: Laterality: bilateral Lung location: lower lobe of lung Qualified Code(s): J 15.7 - Pneumonia due to Mycoplasma pneumoniae Pneumonia Qualifiers: Pneumonia type: due to unspecified organism Laterality: bilateral Lung location: lower lobe of lung Qualified Code(s): J18.9 - Pneumonia, unspecified organism
[2024-03-20] MEDS: cefTRIAXone SODIUM 2,000 MG/50 ML BAG IV STA (13:25)
[2024-03-20] MEDS: ALBUT/IPRATROP 3MG/0.5MG NEB 3 ML VIAL NEB STA (13:26)
[2024-03-20] MEDS: methylPREDNISolone 125 MG/2 ML VIAL IV STA (13:28)
--- NOTE | 2024-03-20 13:28 | XRay Report ---
XR chest 1V portable HISTORY: 68 years-old Male Chest pain, nonspecific COMPARISON: 04/23/2019 TECHNIQUE: AP view of the chest FINDINGS: Cardiac silhouette is enlarged. Mixed interstitial and alveolar opacities of the lungs are new from p rior. Status post removal of the [id number]-[id number] catheter. No pneumothorax or pleural effusion. IMPRESSION: Cardiomegaly with mixed interstitial and alveolar opacities suggestive of multifocal pneu monia versus pulmonary edema. ACT 112: Negative or not required by law. The above report was generated using voice recognition software. It may contain grammatical, syntax o r spelling errors. Electronically signed by: Kvng Currie M.D. 03/20/2024 1:26 PM
[2024-03-20 13:30] LABS: Alanine Aminotransferase 68 U/L (7-52); Albumin Globulin Ratio 1.2 (0.9-2); Alkaline Phosphatase 180 U/L (34-104); Anion Gap 8 (3-11); Aspartate Aminotransferase 31 U/L (13-39); BUN Creatinine Ratio 14.5 (10-20); Bilirubin,Total 2.2 mg/dl (0.2-1.0); Blood Urea Nitrogen 16 mg/dl (6-23); Carbon Dioxide 29 mmol/L (21-32); Chloride 95 mmol/L (98-107); Est GFR (African American) 79.5 ml/min; Est GFR (Non-African American) 68.6 ml/min; Globulin 3.3 gm/dl (2.5-4.0); Glucose 151 mg/dl (70-99(Fasting)); Potassium 4.2 mmol/L (3.5-5.1); Sodium 132 mmol/L (136-145); Total Protein 7.3 gm/dl (6.0-8.3)
[2024-03-20 13:34] LABS: Troponin I High Sensitivity 33.8 pg/ml (0-20)
[2024-03-20 13:37] LABS: INR 1.1 (0.9-1.1); Partial Thromboplastin Ratio 0.9; Partial Thromboplastin Time 25 Seconds (21-31); Prothrombin Time 11.5 Seconds (9.0-12.0)
[2024-03-20 13:58] LABS: Adenovirus PCR Not Detected (NotDetected); Bordetella parapertussis PCR Not Detected (NotDetected); Bordetella pertussis PCR Not Detected (NotDetected); Chlamydia pneumoniae PCR Not Detected (NotDetected); Coronavirus 229E PCR Not Detected (NotDetected); Coronavirus CoV-2 (COVID19)PCR Not Detected (NotDetected); Coronavirus HKU1 PCR Not Detected (NotDetected); Coronavirus NL63 PCR Not Detected (NotDetected); Coronavirus OC43PCR Not Detected (NotDetected); Human Metapneumovirus PCR Not Detected (NotDetected); Influenza A PCR Not Detected (NotDetected); Influenza B PCR Not Detected (NotDetected); Mycoplasma pneumoniae PCR DETECTED (NotDetected); Parainfluenza Virus 1 PCR Not Detected (NotDetected); Parainfluenza Virus 2 PCR Not Detected (NotDetected); Parainfluenza Virus 3 PCR Not Detected (NotDetected); Parainfluenza Virus 4 PCR Not Detected (NotDetected); Respiratory Syncytial VirusPCR Not Detected (NotDetected); Rhinovirus/Enterovirus PCR Not Detected (NotDetected)
[2024-03-20] MEDS: AZITHROMYCIN 500 MG in DEXTROSE 5% 250 ML IV ONE (15:05)
--- NOTE | 2024-03-20 15:10 | History & Physical Report ---
Date of Service March 20, 2024 Assessment & Plan (1) Hypoxia: (2) Mycoplasma pneumoniae pneumonia: (3) Multifocal pneumonia: Plan: Admit to [facility] with telemetry Patient presenting by referral of outpatient PCP office for evaluation of hypoxia, shortness of breath, cough, fever. In the ED, patient hypoxic on room air at 85%, currently requiring 2 L of oxygen via nasal cannula Bio fire positive for Mycoplasma pneumoniae CXR showing multifocal pneumonia S/p IV ceftriaxone and IV azithromycin in the ED. 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 Eusebio Coto spent a total of 75 minutes coordinating, documenting, and providing care for this patient excluding time spent in the performance of separately billed services. This included personally reviewing all current laboratories and imaging studies, medication reconciliation, outpatient chart review, and discussion with specialists. History of Present Illness Chief Complaint: shortness of breath, fever, cough Primary Care Provider: Armando Hayward MD 68-year-old male with PMH dyslipidemia, HTN, prostate cancer, diffuse large B- cell lymphoma on oral chemotherapy, Dyer's syndrome, and other problems listed below who presents to the ED by referral of outpatient office for evaluation of fever, shortness of breath, cough. History is obtained from the patient and review of outpatient PCP and oncology records. Patient reports he has been feeling sick for about the past 1 week. He has had progressive worsening shortness of breath and cough. Reports cough has been productive however he is unsure of the color. Reports running fevers throughout the past week, states fever was 101.9 yesterday. He has had a poor appetite but denies nausea, vomiting, abdominal pain, diarrhea. No chest pain. Denies lightheadedness, dizziness, diaphoresis, syncopal events. No urinary symptoms. Patient reports his grandson had cold-like symptoms, no other sick contacts or recent travel. Patient was evaluated in outpatient family practice office today and was found to be 70% on room air. Patient was referred to the ED for further evaluation. In the ED, patient was hypoxic on room air at 85%, currently requiring 2 L of oxygen via nasal cannula. Bio fire positive for mycoplasma pneumonia. CXR showing multifocal pneumonia. Patient was given nebulizer, IV azithromycin, IV ceftriaxone, IV Solu-Medrol. Allergies Allergy/AdvReac Type Severity Reaction Status Date / Time No Known Allergies Allergy Unverified 04/23/19 21:07 Home Medications Medication Instructions Recorded Confirmed Type losartan 100 mg tablet 100 mg PO HS 04/23/19 03/20/24 History pravastatin 80 mg tablet 80 mg PO HS 04/23/19 03/20/24 History coenzyme Q10 400 mg capsule 400 mg PO DAILY 04/24/19 03/20/24 History multivitamin 1 tab PO DAILY 04/24/19 03/20/24 History omega-3 fatty acids 1,000 mg 1,000 mg PO DAILY 04/24/19 03/20/24 History capsule (Fish Oil Concentrate) amlodipine 5 mg tablet 5 mg PO DAILY 03/20/24 03/20/24 History gabapentin 300 mg capsule 300 mg PO HS 03/20/24 03/20/24 History hydrochlorothiazide 25 mg tablet 25 mg PO DAILY 03/20/24 03/20/24 History ibrutinib 420 mg tablet (Imbruvica) 420 mg PO HS 03/20/24 03/20/24 History Past Med/Surg History Problem List (Updated 03/20/24 @ 16:07 by Valentin Saleh MD) Pneumonia (Acute) SOB (shortness of breath) (Acute) Mycoplasma pneumonia (Acute) Elevated troponin (Acute) Hypoxia (Acute) Mycoplasma pneumoniae pneumonia Elevated troponin Hypoxia Multifocal pneumonia Medical History Prostate cancer 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 HLD (hyperlipidemia) HTN (hypertension) Surgical History (Updated 03/20/24 @ 15:09 by SHAAN Beckett) History of back surgery Social History Smoking Status: Never smoker Hx Alcohol Use: No Hx Substance Use: No Preferred Language: Niuean Communication Ability: Effective Design Painter Required: No Beliefs That Will Affect Care: None marital status: Current Living Situation: Spouse Other Information That Helps Us Care for You: No Feels Safe at Home: Yes Safety Concerns: Feels Safe At This Time Assistive Devices: Glasses Review of Systems Review of Systems: ROS per HPI, all other systems reviewed and negative Physical Exam Constitutional: WD/WN, vitals as above no acute distress Eyes: PERRL, conjunctivae normal, anicteric sclerae ENMT: external ear and nose normal, oropharynx normal Respiratory: normal respiratory effort; no respiratory distress Auscultation: + diminished lung sounds Cardiovascular: Rate/Rhythm: regular rate and regular rhythm Vessels: normal peripheral pulses Extremities: no edema Gastrointestinal (Abdomen): normal bowel sounds, soft, nontender, no hepatosplenomegaly Musculoskeletal: no cyanosis or clubbing, extremities motor strength 5/5 Skin: no rashes, warm and dry Neurologic: PERRL, EOMI, accommodation nl, no face palsy, no dysarthria Psychiatric: A+Ox3, euthymic affect Results & Data Results & Data Vital Signs (Past 12 Hours) Vital Signs Temp Pulse Pulse Resp BP BP Pulse Ox 03/20/24 13:37 94 03/20/24 13:37 93 H 18 172/73 H 94 03/20/24 12:45 85 L 03/20/24 12:38 37.1 C 99 H 18 164/79 H 93 O2 Del Method O2 Flow Rate 03/20/24 13:37 Nasal Cannula 03/20/24 13:37 Nasal Cannula 2 03/20/24 12:45 Nasal Cannula 03/20/24 12:38 Nasal Cannula 2 Laboratory Results Short CBC 03/20/24 Range/Units 12:54 WBC 10.58 (4.8-10.8) K/ul Hgb 12.4 L (14.0-18.0) g/dl Hct 38.1 L (42.0-52.0) % Plt Count 227 (130-400) K/uL BMP 03/20/24 12:54 Sodium 132 L Potassium 4.2 Chloride 95 L Carbon Dioxide 29 BUN 16 Creatinine 1.10 Glucose 151 H Calcium 9.0 Liver Function 03/20/24 Range/Units 12:54 Total Bilirubin 2.2 H (0.2-1.0) mg/dl AST 31 (13-39) U/L ALT 68 H (7-52) U/L Alkaline Phosphatase 180 H (34-104) U/L Albumin 4.0 (3.4-5.0) gm/dl Diagnostic Findings Chest X-Ray 03/20/24 12:51 XR chest 1V portable HISTORY: 68 years-old Male Chest pain, nonspecific COMPARISON: 04/23/2019 TECHNIQUE: AP view of the chest FINDINGS: Cardiac silhouette is enlarged. Mixed interstitial and alveolar opacities of the lungs are new from prior. Status post removal of the Whrlhh-b-Fuie catheter. No pneumothorax or pleural effusion. IMPRESSION: Cardiomegaly with mixed interstitial and alveolar opacities suggestive of multifocal pneumonia versus pulmonary edema. ACT 112: Negative or not required by law. The above report was generated using voice recognition software. It may contain grammatical, syntax or spelling errors. Electronically signed by: Kvng Currie M.D. 03/20/2024 1:26 PM Code Status & VTE Plan VTE Prophylaxis Plan VTE Prophylaxis will be ordered: Yes Supervising Physician Co-Signing Physician Notes Attending Addendum: Case reviewed with the advanced practitioner. I have personally performed a history and physical examination on the patient. I have reviewed the advanced practitioner's documentation on the date of service referenced in note, and I agree with, and take responsibility for the plan of care. please refer to her notes for full details patient seen and examined, records reviewed by myself as well on exam, patient seen resting in bed, on 2 L O2 states he feels improved since admission no active dyspnea has intermittent cough no other symptoms VS noted and reviewed oriented x3 , not in distress, speaks in sentences with no effort nor accessory muscle use normal rate, regular rhythm, no murmurs mild scattered crackles BL, no wheezing non distended, soft, nontender no bipedal edema, erythema, warmth no neuro deficits all labs, imaging noted and reviewed ASSESSMENT AND PLAN> ACUTE HYPOXIC RESPIRATORY FAILURE SECONDARY TO MULTIFOCAL PNEUMONIA IMMUNOCOMPROMISED STATE Biofire (+) Mycoplasma ff up cultures Cefepime + Azithromycin Nebs other diagnoses and plan of care as per advanced practitioner's notes Ozzy Kaplan MD
[2024-03-20] MEDS ORDERED: ALBUT/IPRATROP 3MG/0.5MG NEB 3 ML VIAL NEB PRN (15:36)
[2024-03-20] MEDS ORDERED: ACETAMINOPHEN 325 MG TAB PO PRN (15:36)
[2024-03-20 15:55] LABS: Troponin I High Sensitivity 31.4 pg/ml (0-20)
[2024-03-20] MEDS: ENOXAPARIN INJ 40 MG/0.4 ML SYR SQ SCH (16:16)
--- NOTE | 2024-03-20 17:04 | Electrocardiogram Report ---
Test Reason : Blood Pressure : / mmHG Vent. Rate : 092 BPM Atrial Rate : 092 BPM P-R Int : 152 ms QRS Dur : 098 ms QT Int : 330 ms P-R-T Axes : 039 003 041 degrees QTc Int : 408 ms Normal sinus rhythm Possible Inferior infarct , age undetermined Abnormal ECG No previous ECGs available Confirmed by Valerio Francis ([id number]) on 03/20/2024 5:03:52 PM Referred By: Louis Maher Confirmed By:Ben Francis
[2024-03-20] MEDS: PRAVASTATIN SOD 40 MG TAB PO SCH (21:33)
[2024-03-20] MEDS: CEFEPIME 2,000 MG in SYRINGE 0 ML IV SCH (21:33)
[2024-03-20] MEDS: GABAPENTIN 300 MG CAP PO SCH (21:33)
[2024-03-20] MEDS: LOSARTAN POTASSIUM 50 MG TAB PO SCH (21:33)
--- NOTE | 2024-03-21 01:19 | Communication Note ---
Date of Service: March 21, 2024 Patient with rapid A-fib, heart rate 120s as per RN. SBP 180s. Patient comfortable as per RN. AP New onset A-fib Secondary to uncontrolled hypertension Azithromycin for mycoplasma pneumonia possibly contributory Initiate Lopressor Doxycycline in place of azithromycin TTE, Cardiology consult Re: New onset A-fib
[2024-03-21] MEDS: METOPROLOL TARTRATE 1 MG/ML VIAL IV STA ×2 (01:36→04:31)
[2024-03-21 02:00] LABS: Thyroid Stimulating Hormone 1.632 uIu/ml (0.300-4.500)
--- OUTSIDE RECORDS SUMMARY | 2024-03-21 02:03 | External Medical Summary ---
Author Name Unknown Address Unknown Organization [id number][facility] [address] [place] [id number] Laboratory Report Ordering Provider Test Date Status ANGELINA IBARRA 03/16/2024 07:04:02 Final Observation Date Value Abnormality Reference (Units ) Status WBC, Total 03/16/2024 07:04:02 6.75 4.00-10.8 0 (K/uL) Final RBC 03/16/2024 07:04:02 4.33 4.50-5.25 (M/uL) Final Hemoglobin 03/16/2024 07:04:02 12.4 Below low normal 14 .0-16.8 (g/dL) Final HCT 03/16/2024 07:04:02 38.5 Below low normal 40. 0-48.4 (%) Final MCV 03/16/2024 07:04:02 88.9 82.0-99.5 (fL) Final MCH 03/16/2024 07:04:02 28.6 27.0-34.0 (pg) Final MCHC 03/16/2024 07:04:02 32.2 32.0-36.0 (g/dL) Final RDW 03/16/2024 07:04:02 13.0 11.5-15.5 (%) Final Platelets 03/16/2024 07:04:02 172 140-400 (K /uL) Final MPV 03/16/2024 07:04:02 9.7 6.6-11.1 ( fL) Final Performing Location [facility] [address] [place] [id number]
--- OUTSIDE RECORDS SUMMARY | 2024-03-21 02:03 | External Medical Summary | Summary of Care ---
Author Name Unknown Organization [facility] Address [address] [place] [address] Phone [phone] Care Team Providers Care Head Turbine Operator Name Role Phone Armando Hayward MD Primary Care Provider [phone]- [phone] Reason for Visit * Reason Comments Medication Management Encounter Details Date Type Department Care Team (Late st Contact Info) Description 03/16/2024 11:00 AM EDT Pharmacy Pharmacy Hematology Oncology [facility] [address] [place] [address] [facility], [facility] Hem/Onc [address] [place] [address] Diffuse large B-cell lymphoma, unspecified body region (HCC)* Allergies No known active allergiesdocumented as of this encounter (statuses as of 03/16/2024) Medications Medication Sig Dispensed Refills Start Date End Date Status MULTIVITAMINS PO CAPSIndications:Trii ne medical exam one each day 06/04/2012 Active OMEGA-3 FISH OIL 1000 MG PO CAPSIndications:Dysli pidemia, goal LDL below 100 Take one capsule by mouth twice a day 60 Cap 5 09/21/2013 Active COENZYME Q10 400 MG PO CAPSIndications:Dysli pidemia, goal LDL below 100 1 CAPSULE DAILY 1 Cap 0 09/21/2013 Active Ibrutinib 420 MG Oral TabletIndications:Dif fuse large B-cell lymphoma, unspecified body region (HCC) Take 1 Tablet by mouth daily. 09/30/2023 Active Ibrutinib 420 MG Oral TabletIndications:Dif fuse large B-cell lymphoma, unspecified body region (HCC) Take 1 tablet by mouth daily. 30 Tablet 5 10/09/2023 Active Pravastatin Sodium 80 MG Oral TabletIndications:Dys lipidemia, goal LDL below 100 take 1 tablet by mouth at bedtime 90 Tablet 1 10/15/2023 Active Losartan Potassium 100 MG Oral Tablet (Cozaar)Indications:E ssential hypertension with goal blood pressure less than 140/90 take 1 tablet by mouth daily 90 Tablet 3 10/15/2023 Active amLODIPine Besylate 5 MG Oral Tablet (Norvasc) Take 1 Tablet by mouth in the morning. 30 Tablet 5 01/02/2024 Active Gabapentin 300 MG Oral Capsule (Neurontin)Indication s:Meza's syndrome (HCC) Take 1 Capsule by mouth at bedtime. 30 Capsule 02/28/2024 Active hydroCHLOROthiazide 25 MG Oral Tablet (Hydrodiuril)Indicati ons:HTN, goal below 140/90 Take 1 Tablet by mouth in the morning. 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(Modified Yu risk: High, Lymphocytosis: Present, Adenopathy: Present, Organomegaly: Present, Anemia: Present, Thrombocytopenia: Present) - Signed by Erick Cruz MD on 07/13/2019 Diffuse large B cell lymphoma 04/16/2019 Lumbar radiculopathy 01/27/2019 Obesity, Class I, BMI 30.0-34.9 (see actual BMI) 11/04/2017 Overview: bmi= 34.27 11/04/17 LOGAN inhibitor intolerance 08/30/2014 Dyslipidemia, goal LDL below 100 10/09/2011 Impotence of organic origin 11/21/2010 Hypertensive retinopathy HTN, goal below 140/90 documented as of this encounter (statuses as of 03/16/2024) Resolved Problems Problem Noted Date Diagnosed Date Resolved Date Mucositis due to chemotherapy 07/05/2019 09/05/2023 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 07/13/2019 Rhinovirus infection 05/24/2019 019 Pancytopenia due to antineop lastic chemotherapy 05/23/2019 09/05/2023 Transaminitis 05/23/2019 06/01/2019 Encounter for antineoplastic chemotherapy 04/21/2019 09/05/2023 Severe malnutrition 04/19/2019 12/14/19 21 Kidney disease, chronic, sta ge III (GFR 30-59 ml/min) 03/16/2019 12/13/2020 Overview: Per CKD protocol Prediabetes 10/22/2017 12/13/2020 Overview: Per Prediabetes protocol #1 Obesity, Class I, BMI 30.0-3 4.9 (see actual BMI) 04/11/2015 11/04/2017 Overview: bmi= 33.24 04/11/15 HTN, goal below 140/90 07/07/201405/28 Obesity, Class I, BMI 30.0-3 4.9 (see actual BMI) 06/15/2014 11/04/2017 Overview: bmi= 32.38 06/15/14 Screening for diabetes mellitus 06/15/2014 11/04/2017 Obesity, Class I, BMI 30.0-3 4.9 (see actual BMI) 09/21/2013 11/04/2017 Overview: bmi= 33.24 09/21/13 Obesity, Class I, BMI 30-34.9 01/26/2013 11/04/2017 Overview: bmi= 32.28 01/26/13 Obesity, Class I, BMI 30.0-3 4.9 (see actual BMI) 06/04/2012 11/04/2017 Overview: bmi= 31.79 06/04/12 Routine medical exam 06/04/2012 018 Dyslipidemia, goal LDL below 100 06/04/2012 06/12/2016 Special screening for malign ant neoplasm of prostate 06/04/2012 11/04/2017 Shoulder joint pain 06/04/2012 11/04/19 18 Obesity, Class I, BMI 30.0-3 4.9 (see actual BMI) 10/09/2011 10/09/2011 Overview: BMI= 32.00 10/09/11 BPH with obstruction/lower u rinary tract symptoms 10/09/2011 12/13/2020 Obesity, Class I, BMI 30.0-3 4.9 (see actual BMI) 10/09/2011 11/04/2017 Overview: BMI= 32.00 10/09/11 Elevated blood pressure, situational 10/09/2011 06/12/2016 OBESITY, BMI= 30.22 02/21/11 02/21/2011 11/04/2017 OBESITY, BMI= 30.71 11/21/10 11/21/2010 11/04/2017 BPH with obstruction/lower u rinary tract symptoms 11/21/2010 10/09/2011 Special screening for malign ant neoplasms, colon 11/21/2010 11/04/2017 Screening for prostate cancer 11/21/2010 11/04/2017 Routine medical exam 11/21/2010 014 Dyslipidemia, goal LDL below 100 10/09/2011 Neurogenic claudication due to lumbar spinal stenosis 09/19/2023 documented as of this encounter (statuses as of 03/16/2024) Immunizations Name Administration Dates Next Due COVID-19 mRNA, LNP-s, No Pre serve, 2-Dose Series (Golimi) 08/08/2021,12/07/2020,11/16/2020 Pneumococcal Conjugate Vacci ne, 20-valent ([id number]) 03/03/2024 Pneumococcal Polysaccharide PPV23 (Pneumovax) 12/14/2021 Seasonal Influenza Virus Vac cine, Unspecified Formulation 06/10/2020,07/10/2019,06/11/2018 Seasonal Influenza, QUAD, wi th Preserv, 6 mons & Above, 0.5 mL, IM 06/25/2017 Seasonal Influenza, Quadriva lent, No Preserve, IM 06/09/2018 Seasonal Influenza, Split, I IV3, With Preserve, Inj 07/07/2014,06/25/2013,06/09/2011 TDAP (age 10 and older)(Boostrix) 08/12/2020 Zoster Vaccine Recombinant (Shingrix) 08/10/2022 documented as of this encounter Social History Tobacco Use Types Packs/Day Years Used Date Smoking Tobacco: Never Smokeless Tobacco: Never Alcohol Use Standard Drinks/Week Comments Not Currently 0 (1 standard drink = 0.6 oz pur e alcohol) none AUDIT-C Answer Date Recorded Frequency of Alcohol Consumption Monthly or less 03/23/2019 Average Number of Drinks 1 or 2 019 Frequency of Binge Drinking Never 03/09 PHQ-2 Answer Date Recorded PHQ Adult Total Score 0 08/26/2023 Personal Safety Answer Date Recorded Do you feel unsafe or have concerns for your saf ety? No 09/18/2023 Do you have concerns for you r family's safety? (Household - for ages 0-17 years) Not on file 09/18/2023 Utilities Answer Date Recorded Do you have trouble paying y our heating, water, or electric bill? No 09/18/2023 Is your family able to pay t he heat, water, or electric bill? (Household - for ages 0-17 years) Not on file 09/18/2023 Does your family have access to good internet? (Household - for ages 0-17 years) Not on file 09/18/2023 Social Connections Answer Date Recorded How often do you feel lonely or isolated from those around you? (Adult - for ages 18 years and over) Not on file 02/25/2024 Transportation Needs Answer Date Record ed READ ONLY Do you have troubl e getting a ride to medical visits or work? Never True 09/18/2023 Does your family have a hard time getting a ride to doctors visits? (Household - for ages 0-17 years) Not on file 09/18/2023 Has lack of transportation k ept you from medical appointments, meetings, work, or from getting things needed for daily living? Check all that apply. (Adult - for ages 18 years and over) Not on file 09/18/2023 Do you (or your family) have trouble finding or paying for a ride (transportation)? (Household - for ages 0-17 years) Not on file 09/18/2023 Housing Stability Answer Date Recorded Do you currently live in a s helter or have no steady place to sleep at night? (Adult - for ages 18 years and over) Not on file 09/18/2023 READ ONLY Do you think you a re at risk of becoming homeless? No 09/18/2023 Does your family worry about paying for your home or becoming homeless? (Household - for ages 0-17 years) Not on file 0 09/18/2023 Are you homeless or worried that you might be in the future? (Adult - for ages 18 years and over) Not on file Are you (or your family) karmen eless or worried that you might be in the future? (Household - for ages 0-17 years) Not on file Food Insecurity Answer Date Recorded Do you need food for this week? No 09/18/2023 Are you able to get enough f ood for your family? (Household - for ages 0-17 years) Not on file 09/18/2023 Does your family need food t his week? (Household - for ages 0-17 years) Not on file 09/18/2023 Do you always have enough fo od for your family? (Household - for ages 0-17 years) Not on file 09/18/2023 Sex and Gender Information Value Date Recorded Sex Assigned at Male 02/18/2019 6:07 PM EDT Gender Identity Male 02/18/2019 6:07 PM EDT Sexual Orientation Straight 02/18/2019 6: 07 PM EDT Job Start Date Occupation Industry Not on file Not on file Not on file documented as of this encounter Functional Status Functional Status Response Date of Assess ment Are you deaf or do you have serious difficulty h earing? No 09/18/2023 Are you blind or do you have serious difficulty seeing, even when wearing glasses? No 09/18/2023 Do you have serious difficul ty walking or climbing stairs? (5 years old or older) No 09/18/2023 Do you have difficulty dress ing or bathing? (5 years old or older) No 09/18/2023 Because of a physical, menta l, or emotional condition, do you have difficulty doing errands alone such as visiting a doctor s office or shopping? (15 years old or older) No 09/18/19 24 Cognitive Status Response Date of Assessm ent Because of a physical, menta l, or emotional condition, do you have serious difficulty concentrating, remembering, or making decisions? 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 Fagan (formerly Dr. Cruz) Interval History: Ibrutinib held 04/21/22-04/30/22 for colonoscopy Per 05/18 OV, CBCd and CMP monthly Changes to medication list since last visit? No Assessment and Plan: CBCd WNL Hgb decreased to 12.4 Denied concerns of bruising or bleeding Patient noted minor concerns of infection, but noted symptoms improving CMP stable T. Bilirubin improved to 0.9, ALT increased to 54- no adjustment per PI Will continue to monitor closely Continue current therapy and monthly labs Confirmed standing lab orders in chart Aware to call clinic with questions or concerns prior to follow-up Assessment of compliance: Compliant Assessment of adverse effects attributed to drug therapy: Edema - absent Muscle pain/Cramps - absent Diarrhea/Constipation -absent Nausea/Vomiting - absent Bleeding - absent Rash/Pruritus - absent Hypertension - absent Dose adjustment needed based on lab or adverse drug reaction? No Follow up: OV 03/26, Labs/MTM 04/13 Isela Dailey, PharmD Ambulatory Clinical Pharmacist | Oral Chemotherapy Clinic [facility] 03/16/2024 9:58 AM Suggested lab monitoring: CBCd qmo; SCr/LFTs q3-4mo, uric acid levels as clinically necessary Latest Reference Range & Units 01/11/24 08:10 02/08/24 08:04 03/16/24 07:04 WBC 4.00 - 10.80 K/uL 7.07 5.90 6.75 RBC 4.50 - 5.25 M/uL 4.77 5.13 4.33 HGB 14.0 - 16.8 g/dL 13.6 (L) 14.6 12.4 (L) HCT 40.0 - 48.4 % 41.5 45.6 38.5 (L) MCV 82.0 - 99.5 fL 87.0 88.9 88.9 MCH 27.0 - 34.0 pg 28.5 28.5 28.6 MCHC 32.0 - 36.0 g/dL 32.8 32.0 32.2 RDW 11.5 - 15.5 % 13.8 13.2 13.0 PLT 140 - 400 K/uL 142 142 172 MPV 6.6 - 11.1 fL 10.2 10.8 9.7 Absolute Neutrophils 1.80 - 7.70 K/uL 3.61 3.22 4.52 Absolute Lymphocytes 1.00 - 4.80 K/uL 2.57 1.91 1.28 (L): Data is abnormally low !: Data is abnormal Rpt: View report in Results Review for more information Latest Reference Range & Units 01/11/24 08:10 02/08/24 08:04 03/16/24 07:04 Albumin 3.8 - 5.0 g/dL 4.2 4.4 3.8 AST 10 - 50 U/L 14 15 25 ALT 10 - 50 U/L 16 22 54 (H) Alkaline Phosphatase 35 - 130 U/L 103 114 161 (H) Bilirubin, Total <=1.2 mg/dL 1.4 (H) 1.3 (H) 0.9 (H): Data is abnormally high Time Spent on Encounter: 11 - 15 minutes Encounter Group: Hematology Encounter Interventions Item Category: Oral Chemotherapy Ibrutinib Problem/Rationale: Safety: Needs additional monitoring - Medication Requires monitoring Pharmacist Intervention(s): Lab monitoring and Toxicity monitoring Magnitude of Intervention: Monitoring with direction (Level 1) documented in this encounter Plan of Treatment Upcoming Encounters Date Type Department Care Team (Rk Contact Info) Description 03/26/2024 11:30 AM EDT Office Visit Hematology Oncology [facility] [place] [address] [place] [phone] Jn Fagan MD [address] [place] [address] 04/13/2024 11:00 AM EDT Pharmacy Pharmacy Hematology Oncology [place] [address] [place] [address] [facility], [facility] Hem/Onc [facility] [place] [address] 09/22/2024 4:00 PM EST Office Visit [place] [address] [place] [address] Armando Hayward MD [address] [place] [address] Scheduled Procedures Name Priority Associated Diagnoses Date/Ti me COLONOSCOPY FLEXIBLE PROXIMAL DIAGNOSTIC Recall History of colon polyps Health Maintenance Due Date Last Done Comments Cologuard 2000 Fecal Occult Blood Test 2000 Sigmoidoscopy 2000 Zoster Vaccines (2 of 2) 10/05/2022 08/10/2022 COVID-19 Vaccine ( season) 2023 08/08/2021, 12/07/2020, 11/16/2020 *NEPHROLOGY REFERRAL DUE TO RESISTANT HTN 03/06/2024 Influenza Vaccine (FLU shot) (#1) 2024 05/28/2022, 06/22/2021, 06/10/2020, Additional history exists Depression Screening 08/26/2024 08/26/2023, 04/11/20 15 GFR 03/16/2025 03/16/2024, 09/2023, 02/08/2024, Additional history exists Albumin/Creatinine Ratio 02/07/2027 02/08/2024, 02/0 09/2022 Diabetes Screening 03/16/2027 03/16/2024, 0 02/08/2024, 02/08/2024, Additional history exists Colonoscopy 04/24/2027 04/24/2022, 04/09, 08/21/2016, Additional history exists Colorectal Cancer Screening 04/24/2027 Lipid Panel 02/07/2029 02/08/2024, 0611/2022, 12/13/2021, Additional history exists DTaP,Tdap,and Td Vaccines (2 - Td or Tdap) 08/12/2030 08/12/2020 RETIRED - COLONOSCOPY-EVERY 5 YRS AGES 18-100 Discontinued 04/24/2022, 04/24/2022, 08/21/2016, Additional history exists Pneumococcal Vaccine: 65+ Years Completed 03/03/2024, 12/14/2021 HPV (Gardasil) Vaccine Aged Out No lo nger eligible based on patient's age to complete this topic Hepatitis B Vaccine Aged Out No longe r eligible based on patient's age to complete this topic MENINGOCOCCAL (MENACTRA/MENVEO) Aged Out No longer eligible based on patient's age to complete this topic documented as of this encounter Medical Devices Not on filedocumented as of this encounter Visit Diagnoses Diagnosis Diffuse large B-cell lymphoma, unspecified body region (HCC)- Primary documented in this encounter Advance Directives * Full Code (Latest Code Status on File) Date Activated Date Inactivated Comments 09/18/2023 1:49 PM 09/19/2023 3:56 PM This order r eflects the patients wishes and were consensually agreed upon. Question Answer Comments Discussion of Advance Directives occurred with: Patient * Full Code Date Activated Date Inactivated Comments 09/18/2023 10:35 AM 09/18/2023 1:49 PM This order reflects the patients wishes and were consensually agreed upon. Question Answer Comments Discussion of Advance Directives occurred with: Patient * Full Code Date Activated Date Inactivated Comments 07/01/2019 5:23 PM 07/05/2019 6:41 PM This order reflects the patients wishes and were consensually agreed upon. Question Answer Comments Discussion of Advance Directives occurred with: Patient/Family Does the patient have a Living Will? No Does the patient have Health Care Power of Attor rock? No * Full Code Date Activated Date Inactivated Comments 05/22/2019 10:49 PM 05/24/2019 4:13 PM This order reflects the patients wishes and were consensually agreed upon. Question Answer Comments Discussion of Advance Directives occurred with: Patient Does the patient have a Living Will? No Does the patient have Health Care Power of Attor rock? No * Full Code Date Activated Date Inactivated Comments 04/17/2019 3:28 PM 04/22/2019 3:08 AM This order re flects the patients wishes and were consensually agreed upon. Question Answer Comments Discussion of Advance Directives occurred with: Patient/Family Care Teams Head Turbine Operator Relationship Specialty Start Date End Date Armando Hayward MD [address] [place] [facility] [place] [address] PCP - General Family Medicine 09/29/18 documented as of this encounter"
--- OUTSIDE RECORDS SUMMARY | 2024-03-21 02:03 | External Medical Summary | Summary of Care ---
Author Name Unknown Organization [facility] Address [address] [place] [address] Phone [phone] Care Team Providers Care Bending Roll Operator Name Role Phone Armando Hayward MD Primary Care Provider [phone]- [phone] Reason for Visit * Reason Comments Outpatient Testing Encounter Details Date Type Department Care Team (Late st Contact Info) Description 03/16/2024 7:00 AM EDT Laboratory Laboratory, [facility] [address] [place] [phone] [facility] [address] [place] [address] Diffuse large B cell lymphoma (HCC) Allergies No known active allergiesdocumented as of this encounter (statuses as of 03/16/2024) Medications Medication Sig Dispensed Refills Start Date End Date Status MULTIVITAMINS PO CAPSIndications:Jamshid ne medical exam one each day 06/04/2012 [...] Active Gabapentin 300 MG Oral Capsule (Neurontin)Indication s:Dyer's syndrome (HCC) Take 1 Capsule by mouth [...] to antineoplastic chemotherapy 2018 Neutropenic fever 05/23/2019 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 Cancer Staging:Clinical:Modified Yu Stage IV(Modified [...] mRNA, LNP-s, No Pre serve, 2-Dose Series ([employer]) 08/08/2021,12/07/2020,11/16/2020 Pneumococcal Conjugate Vacci ne, 20-valent ([id number]) 03/03/2024 Pneumococcal Polysaccharide PPV23 (Pneumovax) 12/14/2021 Seasonal [...] No 09/18/2023 documented as of this encounter Plan of Treatment Upcoming Encounters Date Type Department Care Team (Late st Contact Info) Description 03/16/2024 11:00 AM EDT Pharmacy Pharmacy Hematology Oncology [place] [address] [place] [address] c, [facility] Hem/Onc [facility] [place] [address] 03/26/2024 11:30 AM EDT Office Visit Hematology Oncology [place] [address] [place] [phone] Jn Fagan MD [facility] [place] [address] 09/22/2024 4:00 PM EST Office Visit [address] [phone] Armando Hayward MD [address] [place] [address] Pending Results Name Type Priority Associated Diagnoses Date /Time CBC WITH WBC DIFFERENTIAL Lab STAT Diffuse large B cell lymphoma (HCC) 03/16/2024 7:04 AM EDT COMPREHENSIVE METABOLIC PANEL Lab STAT Diffuse large B cell lymphoma (HCC) 03/16/2024 7:04 AM EDT LD Lab STAT Diffuse large B cell lymphoma (HCC) 03/16/2024 7:04 AM EDT CBC Lab STAT Diffuse large B cell lymphoma (HCC) 03/16/2024 7:04 AM EDT DIFFERENTIAL, AUTOMATED Lab STAT Diffuse large B cell lymphoma (HCC) 03/16/2024 7:04 AM EDT Scheduled Procedures Name Priority Associated Diagnoses Date/Ti me COLONOSCOPY FLEXIBLE PROXIMAL DIAGNOSTIC Recall History of colon polyps Health Maintenance Due Date Last Done Comments Cologuard 2000 Fecal Occult Blood Test 2000 Sigmoidoscopy 2000 Zoster Vaccines (2 of 2) 10/05/2022 08/10/2022 COVID-19 Vaccine (4 - season) 2023 08/08/2021, 12/07/2020, 11/16/2020 *NEPHROLOGY REFERRAL DUE TO RESISTANT HTN 03/06/2024 Influenza Vaccine (FLU shot) (#1) 2024 05/28/2022, 06/22/2021, 06/10/2020, Additional history exists Depression Screening 08/26/2024 08/26/2023, 04/11/20 15 GFR 02/07/2025 02/08/2024, 06/0 09/2023, 01/11/2024, Additional history exists Albumin/Creatinine Ratio 02/07/2027 02/08/2024, 02/0 09/2022 Diabetes Screening 02/07/2027 02/08/2024, 0 02/08/2024, 02/08/2024, Additional history exists Colonoscopy 04/24/2027 04/24/2022, 04/09, 08/21/2016, Additional history exists Colorectal Cancer Screening 04/24/2027 Lipid Panel 02/07/2029 02/08/2024, 06/0 11/2022, 12/13/2021, Additional history exists DTaP,Tdap,and Td Vaccines [...] this encounter Visit Diagnoses Diagnosis Diffuse large B cell lymphoma (HCC) Other malignant lymphomas, unspecified site, extranodal and solid organ sites documented in this encounter Advance Directives * [...] patient have Health Care Power of Attor rokc? No * Full Code Date Activated Date [...] Advance Directives occurred with: Patient/Family Care Teams Bending Roll Operator Relationship Specialty Start Date End Date Armando Hayward MD [address] [place] [facility] [place] [address] PCP - General Family Medicine 09/29/18 documented as of this encounter
--- OUTSIDE RECORDS SUMMARY | 2024-03-21 02:04 | External Medical Summary ---
Author Name Unknown Address Unknown Organization [id number] [address] [place] [id number] Laboratory Report Ordering Provider Test Date Status ANGELINA IBARRA 03/16/2024 07:04:02 Final Observation Date Value Abnormality Reference (Units ) Status SYNC LEUKOCYTES IN BLOOD BY AUTOMATED COUNT 03/16/2024 07:04:02 6.75 4.00-10.80 (K/uL) Final Neutrophils/100 leukocytes in Blood by Manual count 03/16/2024 07:04:02 67.0 40.0-75.0 (%) Final Lymphocytes/100 leukocytes in Blood by Manual count 03/16/2024 07:04:02 19.0 18.0-42.0 (%) Final Monocytes/100 leukocytes in Blood by Manual count 03/16/2024 07:04:02 10.0 1.0-11.0 (%) Final Eosinophils/100 leukocytes in Blood by Manual count 03/16/2024 07:04:02 3.0 0.0-6.0 (%) Final Metamyelocytes/100 leukocytes in Blood by Manual count 03/16/2024 07:04:02 1.0 Above high normal <=0.0 (%) Final Neutrophils [#/volume] in Blood by Manual count 03/16/2024 07:04:02 4.52 1.80-7.70 (K/uL) Final Lymphocytes [#/volume] in Blood by Manual count 03/16/2024 07:04:02 1.28 1.00-4.80 (K/uL) Final Monocytes [#/volume] in Blood by Manual count 03/16/2024 07:04:02 0.68 0.00-1.10 (K/uL) Final Eosinophils [#/volume] in Blood by Manual count 03/16/2024 07:04:02 0.20 0.00-0.70 (K/uL) Final Metamyelocytes [#/volume] in Blood by Manual count 03/16/2024 07:04:02 0.07 Above high normal <=0.00 (K/uL) Final Nucleated erythrocytes/100 leukocytes [Ratio] in Blood by Automated count 03/16/2024 07:04:02 Final [facility]forming Location [facility] [address] [place] [address]
--- OUTSIDE RECORDS SUMMARY | 2024-03-21 02:04 | External Medical Summary | Summary of Care ---
Author Name Unknown Organization [facility] Address [address] [place] [address] Phone [phone] Care Team Providers Care Lab Support Tech Name Role Phone Armando Hayward MD Primary Care Provider +1- [phone] Reason for Visit * Reason Onset Date Comments Medication Refill 02/28/2024 Encounter Details Date Type Department Care Team (Late st Contact Info) Description 02/28/2024 Refill Hematology Oncology [facility] [address] [place] [address] Jn Fagan MD [address] [place] [address] Dyer's syndrome (HCC) Allergies No known active allergiesdocumented as of this encounter (statuses as of 02/28/2024) Medications Medication Sig Dispensed Refills Start Date End Date Status MULTIVITAMINS PO CAPSIndications:Ro utine medical exam one each day 06/04/2012 Acti ve OMEGA-3 FISH OIL 1000 MG PO CAPSIndications:Dy slipidemia, goal LDL below 100 Take one capsule by mouth twice a day 60 Cap 5 09/21/2013 Active COENZYME Q10 400 MG PO CAPSIndications:Dy slipidemia, goal LDL below 100 1 CAPSULE DAILY 1 Cap 0 09/21/2013 Active Ibrutinib 420 MG Oral TabletIndications: Diffuse large B-cell lymphoma, unspecified body region (HCC) Take 1 Tablet by mouth daily. 09/30/2023 Active Ibrutinib 420 MG Oral TabletIndications: Diffuse large B-cell lymphoma, unspecified body region (HCC) Take 1 tablet by mouth daily. 30 Tablet 5 10/09/2023 Active Pravastatin Sodium 80 MG Oral TabletIndications: Dyslipidemia, goal LDL below 100 take 1 tablet by mouth at bedtime 90 Tablet 1 10/15/2023 Active Losartan Potassium 100 MG Oral Tablet (Cozaar)Indication s:Essential hypertension with goal blood pressure less than 140/90 take 1 tablet by mouth daily 90 Tablet 3 10/15/2023 Active amLODIPine Besylate 5 MG Oral Tablet (Norvasc) Take 1 Tablet by mouth in the morning. 30 Tablet 5 01/02/2024 Active Gabapentin 300 MG Oral Capsule (Neurontin)Indicat ions:Dyer's syndrome (HCC) Take 1 Capsule by mouth at bedtime. 30 Capsule 02/28/2024 Active Gabapentin 300 MG Oral Capsule (Neurontin)Indicat ions:Dyer's syndrome (HCC) Take 1 Capsule by mouth at bedtime. 30 Capsule 01/31/2024 02/28/2024 Discontinued (Refill) documented as of this encounter (statuses as of 02/28/2024) Active Problems Problem Noted Date Diagnosed Date [...] as of this encounter (statuses as of 02/28/2024) Resolved Problems Problem Noted Date Diagnosed Date [...] as of this encounter (statuses as of 02/28/2024) Immunizations Name Administration Dates Next Due COVID-19 mRNA, LNP-s, No Pre serve, 2-Dose Series (Marvel) 08/08/2021,12/07/2020,11/16/2020 Pneumococcal Polysaccharide PPV23 (Pneumovax) 12/14/2021 Seasonal Influenza [...] No 09/18/2023 documented as of this encounter Miscellaneous Notes * Telephone Encounter - Jn Fagan MD - 02/28/2024 5:41 PM EDTSigned Prescriptions: Disp Refills Gabapentin 300 MG Oral Capsule (Neurontin) 30 Cap*0 Sig: Take 1 Capsule by mouth at bedtime. Authorizing Provider: JN FAGAN * Telephone Encounter - Britt Dudley LPN - 02/28/2024 9:05 AM EDTPending Prescriptions: Disp Refills Gabapentin 300 MG Oral Capsule (Neurontin) 30 Cap*0 Sig: Take 1 Capsule by mouth at bedtime. * Telephone Encounter - Britt Dudley LPN - 02/28/2024 9:03 AM EDT Patient has requested refills of Gabapentin to be sent to [facility] in [place]. Please review and sign if appropriate. documented in this encounter Plan of Treatment Upcoming Encounters Date Type Department Care Team (Late st Contact Info) Description 03/03/2024 5:40 PM EDT Office Visit [facility] [address] [place] [address] Armando Hayward MD [address], [place] [phone] 03/09/2024 11:00 AM EDT Pharmacy Pharmacy Hematology Oncology [place] [address] [place] [address] [facility] Hem/Onc [facility] [place] [address] 03/26/2024 11:30 AM EDT Office Visit Hematology Oncology [place] [address] [place] [phone] Jn Fagan MD [facility] [address] [place], [place] [phone] Scheduled Procedures Name Priority Associated Diagnoses Date/Ti me COLONOSCOPY FLEXIBLE PROXIMAL DIAGNOSTIC Recall History of colon polyps Health Maintenance Due Date Last Done Comments Cologuard 2000 Fecal Occult Blood Test 2000 Sigmoidoscopy 2000 Zoster Vaccines (2 of 2) 10/05/2022 08/10/2022 Pneumococcal Vaccine: 65+ Years (2 of 2 - PCV) 12/14/2022 12/14/2021 COVID-19 Vaccine ( season) 2023 08/08/2021, 12/07/2020, 11/16/2020 Influenza Vaccine (FLU shot) (Season Ended) 2024 05/28/2022, 06/22/2021, 06/10/2020, Additional history exists Depression Screening 08/26/2024 08/26/2023, 04/11/20 15 GFR 02/07/2025 02/08/2024, 09/2023, 01/11/2024, Additional history exists Albumin/Creatinine Ratio 02/07/2027 02/08/2024, 02/0 09/2022 Diabetes Screening 02/07/2027 02/08/2024, 0 02/08/2024, 02/08/2024, Additional history exists Colonoscopy 04/24/2027 04/24/2022, 04/09, 08/21/2016, Additional history exists Colorectal Cancer Screening 04/24/2027 Lipid Panel 02/07/2029 02/08/2024, 060 11/2022, 12/13/2021, Additional history exists DTaP,Tdap,and Td Vaccines (2 - Td or Tdap) 08/12/2030 08/12/2020 RETIRED - COLONOSCOPY-EVERY 5 YRS AGES 18-100 Discontinued 04/24/2022, 04/24/2022, 08/21/2016, Additional history exists GARDASIL-HPV IMMUNIZATION SERIES Aged Out No longer eligible based on patient's age to complete this topic Hepatitis B Aged Out No longer eligi ble based on patient's age to complete this topic MENINGOCOCCAL (MENACTRA/MENVEO) Aged Out No longer eligible based on patient's age to complete this topic documented as of this encounter Medical Devices Not on filedocumented as of this encounter Visit Diagnoses Diagnosis Dyer's syndrome (HCC) Chronic lymphoid leukemia, without mention of having achieved remission documented in this encounter Advance Directives * [...] Advance Directives occurred with: Patient/Family Care Teams Lab Support Tech Relationship Specialty Start Date End Date Armando Hayward MD [address] [place] [facility] [place] [address] PCP - General Family Medicine 09/29/18 documented as of this encounter
--- OUTSIDE RECORDS SUMMARY | 2024-03-21 02:04 | External Medical Summary | Summary of Care ---
Author Name Unknown Organization [facility] Address [address] [place] [address] Phone [phone] Care Team Providers Care White Shoe Ragger Name Role Phone Armando Hayward MD Primary Care Provider +1- [phone] Reason for Visit * Reason Onset Date Comments FYI 02/11/2024 Encounter Details Date Type Department Care Team (Late st Contact Info) Description 02/11/2024 Telephone Hematology Oncology [facility] [address] [place] [address] Jn Fagan MD [address] [place] [address] FYI Allergies No known active allergiesdocumented as of this encounter (statuses as of 02/11/2024) Medications Medication Sig Dispensed Refills Start Date End Date Status MULTIVITAMINS PO CAPSIndications:Jamshid zhang medical exam one each day 06/04/2012 Active [...] by mouth at bedtime. 30 Capsule 01/31/2024 Active documented as of this encounter (statuses as of 02/11/2024) Active Problems Problem Noted Date Diagnosed Date [...] as of this encounter (statuses as of 02/11/2024) Resolved Problems Problem Noted Date Diagnosed Date [...] as of this encounter (statuses as of 02/11/2024) Immunizations Name Administration Dates Next Due COVID-19 mRNA, LNP-s, No Pre serve, 2-Dose Series (appCREAR) 08/08/2021,12/07/2020,11/16/2020 Pneumococcal Polysaccharide PPV23 (Pneumovax) 12/14/2021 Seasonal [...] Recorded PHQ Adult Total Score 0 08/26/2023 Sex and Gender Information Value Date Recorded [...] (15 years old or older) No 09/18/19 Cognitive Status Response Date of Assessm ent Because of a physical, menta l, or emotional condition, do you have serious difficulty concentrating, remembering, or making decisions? 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 Fagan (formerly Dr. Cruz) Caller: Patient Incoming Request: Returning missed call from oral chemo clinic:Lab results review Additional Notes: Patient return call to inform he received Sb Weiss's message. No additional information or details left in message. Catrina Fragoso Web Applications Developer III Hematology Oncology Oral [facility] Medication Therapy Disease Management [facility] 02/11/2024 11:46 AM documented in this encounter Plan of Treatment Upcoming Encounters Date Type Department Care Team (Late st Contact Info) Description 03/03/2024 5:40 PM EDT Office Visit [facility] [facility] [address] [place] [address] Armando Hayward MD [address] [place] [address] 03/09/2024 11:00 AM EDT Pharmacy Pharmacy Hematology Oncology [address] [address] [facility] [place] [facility] Hem/[place]c [facility] [place] [address] 03/26/2024 11:30 AM EDT Office Visit Hematology Oncology [place] [address] [place] [phone] Jn Fagan MD [address] [place] [address] Scheduled Procedures Name Priority Associated Diagnoses Date/Ti me COLONOSCOPY FLEXIBLE PROXIMAL DIAGNOSTIC Recall History of colon polyps Health Maintenance Due Date Last Done Comments Cologuard 2000 Fecal Occult Blood Test 2000 Sigmoidoscopy 2000 Zoster Vaccines (2 of 2) 10/05/2022 08/10/2022 Pneumococcal Vaccine: 65+ Years (2 of 2 - PCV) 12/14/2022 12/14/2021 COVID-19 Vaccine (4 - 2022- season) 2023 08/08/2021, 12/07/2020, 11/16/2020 Influenza Vaccine [...] Advance Directives occurred with: Patient/Family Care Teams White Shoe Ragger Relationship Specialty Start Date End Date Armando Hayward MD [address] [place] [facility] [place] [address] PCP - General Family Medicine 09/29/18 documented as of this encounter
--- OUTSIDE RECORDS SUMMARY | 2024-03-21 02:04 | External Medical Summary | Summary of Care ---
Author Name Unknown Organization [facility] Address [address] [place] [address] Phone [phone] Care Team Providers Care Diesel Mechanic Farm Name Role Phone Armando Hayward MD Primary Care Provider +1- [phone] Reason for Visit * Reason Comments Outpatient Testing Encounter Details Date Type Department Care Team (Late st Contact Info) Description 02/08/2024 8:10 AM EDT Laboratory Laboratory, [facility] [address] [place] [phone] [facility] [address] [place] [address] Type 2 diabetes mellitus with hemoglobin A1c goal of less than 7.0% ([facility]) Allergies No known active allergiesdocumented as of this encounter (statuses as of 02/08/2024) Medications Medication Sig Dispensed Refills Start Date [...] as of this encounter (statuses as of 02/08/2024) Active Problems Problem Noted Date Diagnosed Date Prostate cancer 01/26/2020 Cancer Staging:Clinical:Stage IIB(cT2b, cN0, cM0, PSA: 3, Grade Group: 2) - Signed by Rosanne Ktaz MD on 01/26/2020 Anemia due to antineoplastic [...] as of this encounter (statuses as of 02/08/2024) Resolved Problems Problem Noted Date Diagnosed Date [...] as of this encounter (statuses as of 02/08/2024) Immunizations Name Administration Dates Next Due COVID-19 mRNA, LNP-s, No Pre serve, 2-Dose Series (UPlanMe) 08/08/2021,12/07/2020,11/16/2020 Pneumococcal Polysaccharide PPV23 (Pneumovax) 12/14/2021 Seasonal [...] Care Team (Late st Contact Info) Description 02/19/2024 11:15 AM EDT Pharmacy Pharmacy Hematology Oncology [facility] [address] [place] [address] [facility] Hem[facility]Onc [address] [place] [address] 03/03/2024 5:40 PM EDT Office Visit [facility] [address] [place] [phone] Armando Hayward MD [address] [place] [address] 03/26/2024 11:30 AM EDT Office Visit Hematology Oncology [facility] [address] [place] [phone] Jn Fagan MD [address] [place], [place] [phone] Pending Results Name Type Priority Associated Diagnoses Date /Time HEMOGLOBIN A1C Lab Routine Type 2 diabetes mellitus with hemoglobin A1c goal of less than 7.0% ([facility]) 02/08/2024 8:04 AM EDT LIPID PANEL WITH DIRECT LDL IF TG IS HIGH Lab Routine Type 2 diabetes mellitus with hemoglobin A1c goal of less than 7.0% ([facility]) 02/08/2024 8:04 AM EDT BASIC METABOLIC PANEL Lab Routine Type 2 diabetes mellitus with hemoglobin A1c goal of less than 7.0% ([facility]) 02/08/2024 8:04 AM EDT ALBUMIN / CREATININE RATIO, URINE Lab Routine Type 2 diabetes mellitus with hemoglobin A1c goal of less than 7.0% ([facility]) 02/08/2024 8:07 AM EDT Scheduled Procedures Name Priority Associated Diagnoses Date/Ti me COLONOSCOPY FLEXIBLE PROXIMAL DIAGNOSTIC Recall History of colon polyps Health Maintenance Due Date Last Done Comments Cologuard 2000 Fecal Occult Blood Test 2000 Sigmoidoscopy 2000 Zoster Vaccines (2 of 2) 10/05/2022 08/10/2022 Pneumococcal Vaccine: 65+ Years (2 of 2 - PCV) 12/14/2022 12/14/2021 COVID-19 Vaccine ( - season) 2023 08/08/2021, 12/07/2020, 11/16/2020 Influenza Vaccine (FLU shot) (Season Ended) 2024 05/28/2022, 06/22/2021, 06/10/2020, Additional history exists Depression Screening 08/26/2024 08/26/2023, 04/11/20 15 GFR 01/10/2025 01/11/2024, 04/0 02/2024, 11/08/2023, Additional history exists Albumin/Creatinine Ratio 10/10/2025 10/10/2022 Diabetes Screening 01/10/2027 01/11/2024, 0 12/14/2023, 11/08/2023, Additional history exists Colonoscopy 04/24/2027 04/24/2022, 04/09, 08/21/2016, Additional history exists Colorectal Cancer Screening 04/24/2027 Lipid Panel 02/10/2028 02/09/2023, 04/0 02/2022, 10/24/2020, Additional history exists DTaP,Tdap,and Td Vaccines (2 [...] as of this encounter Visit Diagnoses Diagnosis Type 2 diabetes mellitus with hemoglobin A1c goal of less than 7.0% (HCC) documented in this encounter Advance Directives * Full Code (Latest Code Status on File) Date Activated Date Inactivated Comments 09/18/2023 1:49 PM 09/19/2023 3:56 PM This order reflects the patients wishes [...] Advance Directives occurred with: Patient/Family Care Teams Diesel Mechanic Farm Relationship Specialty Start Date End Date Armando Hayward MD [address] [place] [address] PCP - General Family Medicine 09/29/18 documented as of this encounter
--- OUTSIDE RECORDS SUMMARY | 2024-03-21 02:04 | External Medical Summary | Summary of Care ---
Author Name Unknown Organization [facility] Address [address] [place] [address] Phone [phone] Care Team Providers Care Retirement Village Manager Name Role Phone Armando Hayward MD Primary Care Provider +1- [phone] Encounter Details Date Type Department Care Team (Late st Contact Info) Description 02/10/2024 Orders Only Hematology Oncology [facility] [address] [place] [address] Jn Fagan MD [address] [place] [address] Diffuse large B cell lymphoma (HCC)* Allergies No known active allergiesdocumented as of this encounter (statuses as of 02/10/2024) Medications Medication Sig Dispensed Refills Start Date [...] as of this encounter (statuses as of 02/10/2024) Active Problems Problem Noted Date Diagnosed Date [...] as of this encounter (statuses as of 02/10/2024) Resolved Problems Problem Noted Date Diagnosed Date [...] as of this encounter (statuses as of 02/10/2024) Immunizations Name Administration Dates Next Due COVID-19 mRNA, LNP-s, No Pre serve, 2-Dose Series (Vetr) 08/08/2021,12/07/2020,11/16/2020 Pneumococcal Polysaccharide PPV23 (Pneumovax) 12/14/2021 Seasonal [...] 11:15 AM EDT Pharmacy Pharmacy Hematology Oncology [facility] [address] [place] [address] [facility] [place], [facility] Hem/Onc [address] [place] [address] 03/03/2024 5:40 PM EDT Office Visit [facility] [address] [place] [address] Armando Hayward MD [address] [place], [place] [phone] 03/26/2024 11:30 AM EDT Office Visit Hematology Oncology [facility] [address] [place] [address] Jn Fagan MD [address] [place], [place] [phone] Scheduled Orders Name Type Priority Associated Diagnoses Orde r Schedule CBC WITH WBC DIFFERENTIAL Lab STAT Diffuse large B cell lymphoma (HCC) 4 Occurrences starting 02/10/2024 until 03/11/2025 COMPREHENSIVE METABOLIC PANEL Lab STAT Diffuse large B cell lymphoma (HCC) 4 Occurrences starting 02/10/2024 until 03/11/2025 LD Lab STAT Diffuse large B cell lymphoma (HCC) 4 Occurrences starting 02/10/2024 until 03/11/2025 Scheduled Procedures Name Priority Associated Diagnoses Date/Ti [...] 08/26/2024 08/26/2023, 04/11/20 15 GFR 02/07/2025 02/08/2024, 05/0 12/2023, 12/14/2023, Additional history exists Albumin/Creatinine Ratio 02/07/2027 02/08/2024, 2023 Diabetes Screening 02/07/2027 02/08/2024, 0 02/08/2024, 01/11/2024, Additional history exists Colonoscopy 04/24/2027 04/24/2022, 04/09, 08/21/2016, Additional history exists Colorectal Cancer Screening 04/24/2027 Lipid Panel 02/07/2029 02/08/2024, 11/2022, 12/13/2021, Additional history exists DTaP,Tdap,and Td [...] Diagnoses Diagnosis Diffuse large B cell lymphoma (HCC)- Primary Other malignant lymphomas, unspecified site, extranodal and [...] Advance Directives occurred with: Patient/Family Care Teams Retirement Village Manager Relationship Specialty Start Date End Date Armando Hayward MD [address] [facility] [address] PCP - General Family Medicine 09/29/18 documented as of this encounter
--- OUTSIDE RECORDS SUMMARY | 2024-03-21 02:04 | External Medical Summary ---
Author Name Unknown Address Unknown Organization [id number]:LABORATORY [facility] - [facility] [address] [facility] [address] [place] [address] Laboratory Report Ordering Provider Test Date Status TISHA PETERSONNATHALY 02/08/2024 08:07:11 Final Normal: <30 mg/g creatinine< br/>High: 30-300 mg/g creatinine
Very High: >300 mg/g creatinine
Nephrotic: >2200 mg/g creatinine Observation Date Value Abnormality Reference (Units) Status Albumin, Urine 02/08/2024 08:07:11 <1.20 (mg/dL) Final Creatinine, Urine 02/08/2024 08:07:11 25 (mg/dL) Final ALBUMIN/CREATININE RATIO, HIDE 02/08/2024 08:07:11 Uninterpretable Albumin/Creatinine ratio due to very low albumin and creatinine values. <30 (mg/g Creat) Final Performing Location LABORATORY [facility] - [address] [place] [address]
--- OUTSIDE RECORDS SUMMARY | 2024-03-21 02:04 | External Medical Summary ---
Author Name Unknown Address Unknown Organization [id number]:[facility]ORY [facility] [place] [address] [facility] [address] Laboratory Report Ordering Provider Test Date Status TISHA PETERSONNATHALY 02/08/2024 08:04:12 Final Observation Date Value Abnormality Reference (Units ) Status Triglyceride 02/08/2024 08:04:12 153 <=174 ( mg/dL) Final Triglyceride Reference Range s (mg/dL):
<150 Acceptable
150-174 Borderline high
175-499 High
>=500 Very high Cholesterol 02/08/2024 08:04:12 168 <200 (mg /dL) Final Total Cholesterol Reference Ranges (mg/dL):
<200 Desirable
200-239 Borderline high
>=240 High HDL 02/08/2024 08:04:12 31 Below low normal >39 (mg/dL) Final HDL Cholesterol Reference Ra nges (mg/dL):
>=60 High (Desirable)
<50 Low (Undesirable) For Females
<40 Low (Undesirable) For Males NON-HDL CHOLESTEROL 02/08/2024 08:04:12 137 <=159 (mg/dL) Final Non-HDL Cholesterol Referenc e Range (mg/dL):
<100 Target level for high risk ASCVD patient
<130 Optimal for general population
130-159 Near optimal for general population
160-189 Borderline High
190-219 High
>=220 Very High LDL, (calculated) 02/08/2024 08:04:12 106 <= 129 (mg/dL) Final LDL Cholesterol Reference Ra nges (mg/dL):
<70 Target level for high risk ASCVD patient
<100 Optimal for general population
100-129 Near optimal for general population
130-159 Borderline high
160-189 High
>=190 Very high Performing Location LAB[facility]ORY [facility] [place] [address] [facility] [address]
--- OUTSIDE RECORDS SUMMARY | 2024-03-21 02:04 | External Medical Summary ---
Author Name Unknown Address Unknown Organization [id number]:LABOR[facility]ORY [facility] - [facility] [address] [facility] [address] [place] [address] Laboratory Report Ordering Provider Test Date Status ANGELINA IBARRA 02/08/2024 08:04:12 Final Observation Date Value Abnormality Reference (Units ) Status WBC, Total 02/08/2024 08:04:12 5.90 4.00-10.80 (K/uL) Final RBC 02/08/2024 08:04:12 5.13 4.50-5.25 (M/uL) Final Hemoglobin 02/08/2024 08:04:12 14.6 14.0-16.8 (g/dL) Final HCT 02/08/2024 08:04:12 45.6 40.0-48.4 (%) Final MCV 02/08/2024 08:04:12 88.9 82.0-99.5 (fL) Final MCH 02/08/2024 08:04:12 28.5 27.0-34.0 (pg) Final MCHC 02/08/2024 08:04:12 32.0 32.0-36.0 (g/dL) Final RDW 02/08/2024 08:04:12 13.2 11.5-15.5 (%) Final Platelets 02/08/2024 08:04:12 142 140-400 (K/uL) Final MPV 02/08/2024 08:04:12 10.8 6.6-11.1 (fL) Final Nucleated erythrocytes/100 leukocytes [Ratio] in Blood by Automated count 02/08/2024 08:04:12 0 <=0 (/100 WBCs) Final Performing Location LABORATORY [facility] - [address] [place] [address]
--- OUTSIDE RECORDS SUMMARY | 2024-03-21 02:04 | External Medical Summary ---
Author Name Unknown Address Unknown Organization K01:LABORATORY [facility] - [address] [place] [address] Laboratory Report Ordering Provider Test Date Status ANGELINA IBARRA 02/08/2024 08:04:12 Final Observation Date Value Abnormality Reference (Units ) Status LDH 02/08/2024 08:04:12 164 <=250 (U/L ) Final Performing Location LABORATORY [facility] - [address] [place] [address]
--- OUTSIDE RECORDS SUMMARY | 2024-03-21 02:04 | External Medical Summary ---
Author Name Unknown Address Unknown Organization [id number]:LABORATORY [facility] [place] - [address] [facility] [place] [address] Laboratory Report Ordering Provider Test Date Status ANGELINA IBARRA 02/08/2024 08:04:12 Final Observation Date Value Abnormality Reference (Units ) Status SYNC LEUKOCYTES IN BLOOD BY AUTOMATED COUNT 02/08/2024 08:04:12 5.90 4.00-10.80 (K/uL) Final Segs 02/08/2024 08:04:12 54.6 40.0-75.0 (%) Final Lymphs % 02/08/2024 08:04:12 32.4 18.0-42.0 (%) Final Monos 02/08/2024 08:04:12 9.2 1.0-11.0 (%) Final Eosinophils 02/08/2024 08:04:12 2.0 0.0-6.0 (%) Final Basos 02/08/2024 08:04:12 1.0 0.0-2.0 (%) Final Immature Granulocyte, Percent 02/08/2024 08:04:12 0.8 0.0-2.0 (%) Final Absolute Segs 02/08/2024 08:04:12 3.22 1.80-7.70 (K/uL) Final Lymphs, absolute 02/08/2024 08:04:12 1.91 1.00-4.80 (K/ul) Final Monos, Abs 02/08/2024 08:04:12 0.54 0.00-1.10 (K/uL) Final Eos, Abs 02/08/2024 08:04:12 0.12 0.00-0.70 (K/uL) Final Basos, Abs 02/08/2024 08:04:12 0.06 0.00-0.20 (K/uL) Final Immature Granulocytes, Number 02/08/2024 08:04:12 0.05 0.00-0.20 (K/uL) Final Performing Location LABORATORY [facility] [place] - [address] [facility] [address]
--- OUTSIDE RECORDS SUMMARY | 2024-03-21 02:04 | External Medical Summary | Summary of Care ---
Author Name Unknown Organization [facility] Address [address] [place] [address] Phone [phone] Care Team Providers Care Radiotelephone Technical Operator Name Role Phone Armando Hayward MD Primary Care Provider +1- [phone] Reason for Visit * Reason Comments Medication Management Encounter Details Date Type Department Care Team (Late st Contact Info) Description 03/10/2024 11:00 AM EDT Pharmacy Pharmacy Hematology Oncology [facility] [address] [place] [address] [facility] [place] [facility] Hem[facility]Onc [address] [place] [address] Diffuse large B-cell lymphoma, unspecified body region (HCC)* Allergies No known active allergiesdocumented as of this encounter (statuses as of 03/10/2024) Medications Medication Sig Dispensed Refills Start Date [...] as of this encounter (statuses as of 03/10/2024) Active Problems Problem Noted Date Diagnosed Date [...] as of this encounter (statuses as of 03/10/2024) Resolved Problems Problem Noted Date Diagnosed Date [...] as of this encounter (statuses as of 03/10/2024) Immunizations Name Administration Dates Next Due COVID-19 mRNA, LNP-s, No Pre serve, 2-Dose Series ([employer]) 08/08/2021,12/07/2020,11/16/2020 Pneumococcal Conjugate Vacci ne, 20-valent ([id number]) 03/03/2024 Pneumococcal Polysaccharide PPV23 (Pneumovax) 12/14/2021 Seasonal [...] as of this encounter Progress Notes * Jeaneth Ramirez OSA - 03/10/2024 11:00 AM EDT MEDICATION THERAPY MANAGEMENT IBRUTINIB (IMBRUVICA) TREATMENT PROGRESS NOTE Forrest Martinez [id number] Patient Phone Numbers Mobile (, Niyah) [phone] Communication: Spoke to: Patient Current Treatment: Medication: Ibrutinib (Imbruvica) Indication: DLBCL, 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 Fagan (formerly Dr. Cruz) Patient will be going for labs this Saturday via walk in. Patient stated he always goes the Saturday of the month for labs. ANIL Cannon Planning Technician Pharmacy Hematology Oncology Oral Chemotherapy Clinic Medication Therapy Disease Management [facility] 03/10/24 8:49 AM Time Spent on Encounter: < 5 minutes Encounter Group: Hematology Encounter Interventions Item Category: Oral Chemotherapy Ibrutinib Problem/Rationale: Safety: Needs additional monitoring - Medication Requires monitoring Pharmacist Intervention(s): Lab work requested Magnitude of Intervention: Monitoring with no interventions (Level 0) * Isela Dailey [facility] - 03/10/2024 9:01 AM EDT Confirmed standing lab orders in chart to be completed. MTM will follow-up once labs available for review. Isela Dailey, Neto Ambulatory Clinical Pharmacist | Oral Chemotherapy Clinic [facility] 03/10/2024 9:01 AM documented in this encounter Plan of Treatment Upcoming Encounters Date Type Department Care Team (Late st Contact Info) Description 03/16/2024 11:00 AM EDT Pharmacy Pharmacy Hematology Oncology [address] [address] [facility] [place] [facility] Hem/Onc [facility] [place] [address] 03/26/2024 11:30 AM EDT Office Visit Hematology Oncology [place] [address] [place] [phone] Jn Fagan MD [facility] [address] [place], [place] [id number] 09/22/2024 4:00 PM EST Office Visit [facility] [address] [place] [address] Armando Hayward MD [address] [place] [address] Scheduled Procedures Name Priority Associated [...] Pneumococcal Vaccine: 65+ Years Completed 03/03/2024, 12/14/2021 GARDASIL-HPV IMMUNIZATION SERIES Aged Out No longer [...] Advance Directives occurred with: Patient/Family Care Teams Radiotelephone Technical Operator Relationship Specialty Start Date End Date Armando Hayward MD [address] [facility] [place] [address] PCP - General Family Medicine 09/29/18 documented as of this encounter"
--- OUTSIDE RECORDS SUMMARY | 2024-03-21 02:04 | External Medical Summary | Summary of Care ---
Author Name Unknown Organization [facility] Address [address] [place] [address] Phone [phone] Care Team Providers Care Exhaust And Muffler Repairer Name Role Phone Armando Hayward MD Primary Care Provider +1- [phone] Reason for Visit * Reason Comments Medication Management Encounter Details Date Type Department Care Team (Late st Contact Info) Description 02/11/2024 11:00 AM EDT Pharmacy Pharmacy Hematology Oncology [facility] [address] [place] [address] [facility] [place] [facility] [place] Hem/Onc [address] [place] [address] Diffuse large B-cell lymphoma, unspecified body region [...] mRNA, LNP-s, No Pre serve, 2-Dose Series ([employer]) 08/08/2021,12/07/2020,11/16/2020 Pneumococcal Polysaccharide PPV23 (Pneumovax) 12/14/2021 Seasonal [...] of this encounter Progress Notes * Isela Tim, [facility] - 02/11/2024 11:04 AM EDT MEDICATION THERAPY MANAGEMENT IBRUTINIB (IMBRUVICA) TREATMENT PROGRESS NOTE Forrest Martinez [id number] Patient Phone Numbers Mobile (, Niyah) [phone] Communication: Left message requesting return call to assess toleration to therapy Current Treatment: Medication: Ibrutinib (Imbruvica) Indication: DLBCL, 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 Fagan (formerly Dr. Cruz) Interval History: Ibrutinib held 04/21/22-04/30/22 for colonoscopy Per 05/18 OV, CBCd and CMP monthly Changes to medication list since last visit? No Assessment and Plan: CBCd WNL CMP stable T. Bilirubin 1.3 - no adjustment per PI Continue current therapy and monthly labs Confirmed standing lab orders in chart Left voicemail providing above information - requested return call to clinic with questions or concerns Assessment of compliance: N/a Assessment of adverse effects attributed to drug therapy: N/a Dose adjustment needed based on lab or adverse drug reaction? Not per labs Follow up: Labs/MTM 03/09 Isela Tim, PharmD Ambulatory Clinical Pharmacist | Oral Chemotherapy Clinic [facility] 02/11/2024 11:09 AM Suggested lab monitoring: CBCd qmo; SCr/LFTs q3-4mo, uric acid levels as clinically necessary Latest Reference Range & Units 12/14/23 07:47 01/11/24 08:10 02/08/24 08:04 WBC 4.00 - 10.80 K/uL 6.42 7.07 5.90 RBC 4.50 - 5.25 M/uL 4.64 4.77 5.13 HGB 14.0 - 16.8 g/dL 13.3 (L) 13.6 (L) 14.6 HCT 40.0 - 48.4 % 40.4 41.5 45.6 MCV 82.0 - 99.5 fL 87.1 87.0 88.9 MCH 27.0 - 34.0 pg 28.7 28.5 28.5 MCHC 32.0 - 36.0 g/dL 32.9 32.8 32.0 RDW 11.5 - 15.5 % 14.1 13.8 13.2 PLT 140 - 400 K/uL 115 (L) 142 142 MPV 6.6 - 11.1 fL 9.9 10.2 10.8 Absolute Neutrophils 1.80 - 7.70 K/uL 3.09 3.61 3.22 Absolute Lymphocytes 1.00 - 4.80 K/ul 2.54 2.57 1.91 (L): Data is abnormally low !: Data is abnormal Rpt: View report in Results Review for more information Latest Reference Range & Units 12/14/23 07:47 01/11/24 08:10 02/08/24 08:04 Albumin 3.8 - 5.0 g/dL 4.3 4.2 4.4 AST 10 - 50 U/L 18 14 15 ALT 10 - 50 U/L 22 16 22 Alkaline Phosphatase 35 - 130 U/L 107 103 114 Bilirubin, Total <=1.2 mg/dL 1.3 (H) 1.4 (H) 1.3 (H) (H): Data is abnormally high Time Spent on Encounter: < 5 minutes [...] Description 03/03/2024 5:40 PM EDT Office Visit [place] [address] [place] [phone] Armando Hayward MD [address] [place] [address] 03/09/2024 11:00 AM EDT Pharmacy Pharmacy Hematology Oncology [address] [address] [facility] [place] [facility] [place] Hem/[place]c [facility] [place] [address] 03/26/2024 11:30 AM EDT Office Visit Hematology Oncology [place] [address] [place] [phone] Jn Fagan MD [facility] [place] [address] Scheduled Procedures Name Priority Associated Diagnoses Date/Ti [...] Advance Directives occurred with: Patient/Family Care Teams Exhaust And Muffler Repairer Relationship Specialty Start Date End Date Armando Hayward MD [address] [place] [address] PCP - General Family Medicine 09/29/18 documented as of this encounter"
--- OUTSIDE RECORDS SUMMARY | 2024-03-21 02:04 | External Medical Summary | Summary of Care ---
Author Name Unknown Organization [facility] Address [address] [place] [address] Phone [phone] Care Team Providers Care Line Director Name Role Phone Armando Hayward MD Primary Care Provider +1- [phone] Reason for Visit * Reason Comments Medication Management Encounter Details Date Type Department Care Team (Late st Contact Info) Description 03/09/2024 11:00 AM EDT Pharmacy Pharmacy Hematology Oncology [facility] [address] [place] [address] [facility] [place] Hem/Onc [address] [place] [address] Diffuse large B-cell lymphoma, unspecified body region (HCC)* Allergies No known active allergiesdocumented as of this encounter (statuses as of 03/09/2024) Medications Medication Sig Dispensed Refills Start Date [...] as of this encounter (statuses as of 03/09/2024) Active Problems Problem Noted Date Diagnosed Date [...] as of this encounter (statuses as of 03/09/2024) Resolved Problems Problem Noted Date Diagnosed Date [...] as of this encounter (statuses as of 03/09/2024) Immunizations Name Administration Dates Next Due COVID-19 mRNA, LNP-s, No Pre serve, 2-Dose Series ([employer]) 08/08/2021,12/07/2020,11/16/2020 Pneumococcal Conjugate Vacci ne, 20-valent ([id number]) 03/03/2024 Pneumococcal Polysaccharide PPV23 (Pneumovax) 12/14/2021 Seasonal [...] Progress Notes * Jeaneth Ramirez OSA - 03/09/2024 11:00 AM EDT MEDICATION THERAPY MANAGEMENT IBRUTINIB (IMBRUVICA) TREATMENT PROGRESS NOTE Forrest Martinez [id number] Patient Phone Numbers Mobile (, Niyah) [phone] Communication: Left message requesting pt to obtain lab work Current Treatment: Medication: Ibrutinib (Imbruvica) Indication: DLBCL, 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 Fagan (formerly Dr. Cruz) Monthly lab reminder message left via Sp[employer]. ANIL Cannon Director Health Pharmacy Hematology Oncology Oral Chemotherapy Clinic Medication Therapy Disease Management [facility] 03/09/24 10:17 AM Time Spent on Encounter: < 5 minutes Encounter Group: Hematology Encounter Interventions Item Category: Oral Chemotherapy Ibrutinib Problem/Rationale: Safety: Needs additional monitoring - Medication Requires monitoring Pharmacist Intervention(s): Lab work requested Magnitude of Intervention: Monitoring with no interventions (Level 0) * Isela Dailey RPh - 03/09/2024 10:43 AM EDT Confirmed standing lab orders in chart to be completed. MTM will follow-up once labs available for review. Isela Dailey, Neto Ambulatory Clinical Pharmacist | Oral Chemotherapy Clinic [facility] 03/09/2024 10:43 AM documented in this encounter Plan of Treatment Upcoming Encounters Date Type Department Care Team (Late st Contact Info) Description 03/10/2024 11:00 AM EDT Pharmacy Pharmacy Hematology Oncology [place] [address] [place] [address] [facility] [place] Hem/Onc [facility] [place] [address] 03/26/2024 11:30 AM EDT Office Visit Hematology Oncology [place] [address] [place] [phone] Jn Fagan MD [facility] [place] [address] 09/22/2024 4:00 PM EST Office Visit [facility] [address] [place] [address] Armando Hayward MD [address] [place] [address] Scheduled Procedures Name Priority Associated [...] Additional history exists Albumin/Creatinine Ratio 02/07/2027 02/08/2024, 09/2022 Diabetes Screening 02/07/2027 02/08/2024, 0 02/08/2024, [...] Advance Directives occurred with: Patient/Family Care Teams Line Director Relationship Specialty Start Date End Date Armando Hayward MD [address] [place] [facility] [place] [address] PCP - General Family Medicine 09/29/18 documented as of this encounter"
--- OUTSIDE RECORDS SUMMARY | 2024-03-21 02:04 | External Medical Summary ---
Author Name Unknown Address Unknown Organization [facility] - [address] [place] [id number] Laboratory Report Ordering Provider Test Date Status ANGELINA IBARRA 03/16/2024 07:04:02 Final Observation Date Value Abnormality Reference (Units ) Status [facility] 03/16/2024 07:04:02 158 <=250 (U/L ) Final Performing Location [facility] - [address] [place] [id number]
--- OUTSIDE RECORDS SUMMARY | 2024-03-21 02:04 | External Medical Summary | Summary of Care ---
Author Name Unknown Organization [facility] Address [address] [place] [address] Phone [phone] Care Team Providers Care Putter In Name Role Phone Armando Hayward MD Primary Care Provider +1- [phone] Encounter Details Date Type Department Care Team (Late st Contact Info) Description 03/07/2024 Orders Only PATIENT PORTAL DO NOT DELETE THIS DEPT USED BY NANCY [place]IND [address] Allergies No known active allergiesdocumented as of this encounter (statuses as of 03/07/2024) Medications Medication Sig Dispensed Refills Start Date [...] as of this encounter (statuses as of 03/07/2024) Active Problems Problem Noted Date Diagnosed Date [...] as of this encounter (statuses as of 03/07/2024) Resolved Problems Problem Noted Date Diagnosed Date [...] as of this encounter (statuses as of 03/07/2024) Immunizations Name Administration Dates Next Due COVID-19 mRNA, LNP-s, No Pre serve, 2-Dose Series ([employer]) 08/08/2021,12/07/2020,11/16/2020 Pneumococcal Conjugate Vacci ne, 20-valent ([id number]) 03/03/2024 Pneumococcal Polysaccharide PPV23 (Pneumovax) 12/14/2021 Seasonal [...] 11:00 AM EDT Pharmacy Pharmacy Hematology Oncology [place] [address] [place] [address] c, [facility] Hem/[place]c [facility] [address] 03/26/2024 11:30 AM EDT Office Visit Hematology Oncology [address] [address] Jn Fagan [place] [address] 09/22/2024 4:00 PM EST Office Visit [facility] [address] [place] [address] Armando Hayward MD [address] [place] [address] Scheduled Procedures Name Priority Associated Diagnoses Date/Ti me COLONOSCOPY FLEXIBLE PROXIMAL DIAGNOSTIC Recall History of colon polyps Health Maintenance Due Date Last Done Comments Cologuard 2000 Fecal Occult Blood Test 2000 Sigmoidoscopy 2000 Zoster Vaccines (2 of 2) 10/05/2022 08/10/2022 COVID-19 Vaccine ( season) 2023 08/08/2021, 12/07/2020, 11/16/2020 *NEPHROLOGY REFERRAL DUE TO RESISTANT HTN 03/06/2024 Influenza Vaccine (FLU shot) (Season Ended) 2024 05/28/2022, 06/22/2021, 06/10/2020, Additional history exists Depression Screening 08/26/2024 08/26/2023, 04/11/20 15 GFR 02/07/2025 02/08/2024, 0609/2023, 01/11/2024, Additional history exists Albumin/Creatinine Ratio 02/07/2027 [...] Not on filedocumented as of this encounter Advance Directives * Full Code [...] Advance Directives occurred with: Patient/Family Care Teams Putter In Relationship Specialty Start Date End Date Armando Hayward MD [address] [facility] [place] [address] PCP - General Family Medicine 09/29/18 documented as of this encounter
--- OUTSIDE RECORDS SUMMARY | 2024-03-21 02:04 | External Medical Summary | Summary of Care ---
Author Name Unknown Organization [facility] Address [address] [place] [address] Phone [phone] Care Team Providers Care Admission Nurse Coordinator Name Role Phone Armando Hayward MD Primary Care Provider +1- [phone] Reason for Visit * Reason Comments Outpatient Testing Encounter Details Date Type Department Care Team (Late st Contact Info) Description 02/08/2024 8:10 AM EDT Laboratory Laboratory, [facility] [address] [place] [phone] [facility] [address] [place] [address] Type 2 diabetes mellitus with hemoglobin A1c goal of less than 7.0% ([facility]) Allergies No known active allergiesdocumented as of [...] mRNA, LNP-s, No Pre serve, 2-Dose Series (Ideagen) 08/08/2021,12/07/2020,11/16/2020 Pneumococcal Polysaccharide PPV23 (Pneumovax) 12/14/2021 Seasonal [...] 11:15 AM EDT Pharmacy Pharmacy Hematology Oncology [facility] [address] [place] [address] [facility] Hem/Onc [address] [place] [address] 03/03/2024 5:40 PM EDT Office Visit [facility] [address] [place] [phone] Armando Hayward MD [address] [place] [address] 03/26/2024 11:30 AM EDT Office Visit Hematology Oncology [facility] [address] [place] [address] Jn Fagan MD [address] [place], [place] [phone] Pending Results Name Type Priority Associated Diagnoses Date /Time HEMOGLOBIN A1C Lab Routine Type 2 diabetes mellitus with hemoglobin A1c goal of less than 7.0% ([facility]) 02/08/2024 8:04 AM EDT LIPID PANEL WITH DIRECT LDL IF TG IS HIGH Lab Routine Type 2 diabetes mellitus with hemoglobin A1c goal of less than 7.0% ([facility]) 02/08/2024 8:04 AM EDT BASIC METABOLIC PANEL Lab Routine Type 2 diabetes mellitus with hemoglobin A1c goal of less than 7.0% ([facility]) 02/08/2024 8:04 AM EDT ALBUMIN / CREATININE RATIO, URINE Lab Routine Type 2 diabetes mellitus with hemoglobin A1c goal of less than 7.0% ([facility]) 02/08/2024 8:07 AM EDT Scheduled Procedures Name [...] Advance Directives occurred with: Patient/Family Care Teams Admission Nurse Coordinator Relationship Specialty Start Date End Date Armando Hayward MD [address] [facility] [place] [place] [address] PCP - General Family Medicine 09/29/18 documented as of this encounter
--- OUTSIDE RECORDS SUMMARY | 2024-03-21 02:05 | External Medical Summary | Summary of Care ---
Author Name Unknown Organization [facility] Address [address] [place] [address] Phone [phone] Care Team Providers Care Feeder Operator Name Role Phone Armando Hayward MD Primary Care Provider +1- [phone] Reason for Visit * Reason Onset Date Comments Medication Refill 01/29/2024 Encounter Details Date Type Department Care Team (Late st Contact Info) Description 01/29/2024 Refill Hematology Oncology [facility] [address] [place] [address] Jn Fagan MD [address] [place] [address] Dyer's syndrome (HCC)* Allergies No known active allergiesdocumented as of this encounter (statuses as of 01/31/2024) Medications Medication Sig Dispensed Refills Start Date [...] mouth at bedtime. 30 Capsule 01/31/2024 Active Gabapentin 300 MG Oral Capsule (Neurontin) Take 1 Capsule by mouth at bedtime. 30 Capsule 01/01/2024 01/29/2024 Discontinued (Refill) documented as of this encounter (statuses as of 01/31/2024) Active Problems Problem Noted Date Diagnosed Date [...] as of this encounter (statuses as of 01/31/2024) Resolved Problems Problem Noted Date Diagnosed Date [...] as of this encounter (statuses as of 01/31/2024) Immunizations Name Administration Dates Next Due COVID-19 mRNA, LNP-s, No Pre serve, 2-Dose Series (Pfizer) 08/08/2021,12/07/2020,11/16/2020 Pneumococcal Polysaccharide PPV23 (Pneumovax) 12/14/2021 Seasonal [...] Telephone Encounter - Jn Fagan MD - 01/31/2024 1:00 PM EDTSigned Prescriptions: Disp Refills Gabapentin 300 MG Oral Capsule (Neurontin) 30 Cap*0 Sig: Take 1 Capsule by mouth at bedtime. Authorizing Provider: JN FAGAN * Telephone Encounter - Britt Dudley LPN - 01/30/2024 1:57 PM EDTPending Prescriptions: Disp Refills Gabapentin 300 MG Oral Capsule (Neurontin) 30 Cap*0 Sig: Take 1 Capsule by mouth at bedtime. * Telephone Encounter - Britt Dudley LPN - 01/30/2024 1:55 PM EDT Patient requesting refills of Gabapentin to be sent to [facility] [place]. Please review and sign if appropriate. * Telephone Encounter - Britt Dudley LPN - 01/30/2024 11:09 AM EDTPending Prescriptions: Disp Refills Gabapentin 300 MG Oral Capsule (Neurontin) 30 Cap*0 Sig: Take 1Capsule by mouth at bedtime. documented in this encounter Plan of Treatment Upcoming Encounters Date Type Department Care Team (Late st Contact Info) Description 02/19/2024 11:15 AM EDT Pharmacy Pharmacy Hematology Oncology [facility], [place] [address] [place] [address] [facility] Hem/Onc [facility] [place] [address] 03/03/2024 5:40 PM EDT Office Visit [facility] [address] [place] [address] Armando Hayward MD [address] [place] [address] 03/26/2024 11:30 AM EDT Office Visit Hematology Oncology [place] [address] [place] [address] Jn Fagan MD [address] [place] [address] Scheduled Procedures Name Priority Associated Diagnoses Date/Ti [...] this encounter Visit Diagnoses Diagnosis 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
--- OUTSIDE RECORDS SUMMARY | 2024-03-21 02:05 | External Medical Summary | Summary of Care ---
Author Name Unknown Organization [facility] Address [address] [place] [address] Phone [phone] Care Team Providers Care Product Manager Medical Device Name Role Phone Armando Hayward MD Primary Care Provider +1- [phone] Reason for Visit * Reason Comments Medication Management Encounter Details Date Type Department Care Team (Late st Contact Info) Description 01/22/2024 11:15 AM EDT Pharmacy Pharmacy Hematology Oncology [facility] ([facility] [address] [place] [address] [facility] [place] Hem/Onc [address] [place] [address] Diffuse large B-cell lymphoma, unspecified body region (HCC)* Allergies No known active allergiesdocumented as of this encounter (statuses as of 01/22/2024) Medications Medication Sig Dispensed Refills Start Date End Date Status MULTIVITAMINS PO CAPSIndications:Routi ne medical exam one each day 0 06/04/2012 Active OMEGA-3 FISH OIL 1000 MG [...] (HCC) Take 1 Tablet by mouth daily. 0 09/30/2023 Active Ibrutinib 420 MG Oral TabletIndications:Dif [...] mouth daily 90 Tablet 3 10/15/2023 Active Gabapentin 300 MG Oral Capsule (Neurontin) Take 1 Capsule by mouth at bedtime. 30 Capsule 0 01/01/2024 Active amLODIPine Besylate 5 MG Oral Tablet (Norvasc) Take 1 Tablet by mouth in the morning. 30 Tablet 5 01/02/2024 Active documented as of this encounter (statuses as of 01/22/2024) Active Problems Problem Noted Date Diagnosed Date [...] as of this encounter (statuses as of 01/22/2024) Resolved Problems Problem Noted Date Diagnosed Date [...] as of this encounter (statuses as of 01/22/2024) Immunizations Name Administration Dates Next Due COVID-19 mRNA, LNP-s, No Pre serve, 2-Dose Series (CrowdPlat) 08/08/2021,12/07/2020,11/16/2020 Pneumococcal Polysaccharide PPV23 (Pneumovax) 12/14/2021 Seasonal [...] as of this encounter Progress Notes * Ronit Paul, [facility] - 01/22/2024 11:37 AM EDT MEDICATION THERAPY MANAGEMENT IBRUTINIB (IMBRUVICA) TREATMENT PROGRESS NOTE Forrest Martinez [phone] Patient Phone Numbers Mobile (, Niyah) [phone] Communication: Left message requesting return call to assess toleration to therapy Current Treatment: Medication: Ibrutinib (Imbruvica) Indication: DLBCL, 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 Fagan (formerly Dr. Cruz) Interval History: Ibrutinib held 04/21/22-04/30/22 for colonoscopy Per 05/18 OV, CBCd and CMP monthly Changes to medication list since last visit? No Assessment and Plan: Left voicemail requesting return call to clinic to review toleration to therapy Assessment of compliance: N/a Assessment of adverse effects attributed to drug therapy: N/a Dose adjustment needed based on lab or adverse drug reaction? Not per labs Follow up: [facility] 4 weeks Ronit Paul, PharmD, BCOP Ambulatory Clinical Pharmacist | Oral Chemotherapy Clinic [facility] 01/22/2024, 11:38 AM Suggested lab monitoring: CBCd qmo; SCr/LFTs q3-4mo, uric acid levels as clinically necessary Time Spent on Encounter: < 5 minutes Encounter Group: Hematology Encounter Interventions Item Category: Oral Chemotherapy Ibrutinib Problem/Rationale: Safety: Needs additional monitoring - Medication Requires monitoring Pharmacist Intervention(s): Toxicity monitoring Magnitude of Intervention: Monitoring with direction (Level 1) documented in this encounter Plan of Treatment Upcoming Encounters Date Type Department Care Team (Late st Contact Info) Description 02/19/2024 11:15 AM EDT Pharmacy Pharmacy Hematology Oncology [facility] [address] [place] [address] [facility] [place] Hem/Onc [address] [place] [address] 03/03/2024 5:40 PM EDT Office Visit [facility] [address] [place] [address] Armando Hayward MD [address] [place] [address] 03/26/2024 11:30 AM EDT Office Visit Hematology Oncology [facility] [address] [place] [address] Jn Fagan MD [address] [place] [address] Scheduled Procedures Name Priority Associated Diagnoses Date/Ti me COLONOSCOPY FLEXIBLE PROXIMAL DIAGNOSTIC Recall History of colon polyps Health Maintenance Due Date Last Done Comments Cologuard 2000 Fecal Occult Blood Test 2000 Sigmoidoscopy 2000 Zoster Vaccines (2 of 2) 10/05/2022 08/10/2022 Pneumococcal Vaccine: 65+ Years (2 of 2 - PCV) 12/14/2022 12/14/2021 COVID-19 Vaccine ( - 2022- season) 2023 08/08/2021, 12/07/2020, 11/16/2020 [...] Primary documented in this encounter Advance Directives Latest Code Status on File Code Status Date Activated Date Inactivated Comments Full Code 09/18/2023 1:49 PM 09/19/2023 3:56 PM This order reflects the patients wishes and were consensually agreed upon. Question Answer Comments Discussion of Advance Directives occurred with: Patient Code Status History Code Status Date Activated Date Inactivated Comments Full Code 09/18/2023 10:35 AM 09/18/2023 1:49 PM This order reflects the patients wishes and were consensually agreed upon. Question Answer Comments Discussion of Advance Directives occurred with: Patient Full Code 07/01/2019 5:23 PM 07/05/2019 6:41 PM Thi s order reflects the patients wishes and were consensually agreed upon. Question Answer Comments Discussion of Advance Directives occurred with: Patient/Family Does the patient have a Living Will? No Does the patient have Health Care Power of Cutting Machine Tender Decorative? No Full Code 05/22/2019 10:49 PM 05/24/2019 4:13 PM This order reflects the patients wishes and were consensually agreed upon. Question Answer Comments Discussion of Advance Directives occurred with: Patient Does the patient have a Living Will? No Does the patient have Health Care Power of Cutting Machine Tender Decorative? No Full Code 04/17/2019 3:28 PM 04/22/2019 3:08 AM This o rder reflects the patients wishes and were consensually agreed upon. Question Answer Comments Discussion of Advance Directives occurred with: Patient/Family Care Teams Product Manager Medical Device Relationship Specialty Start Date End Date Armando Hayward MD [address] [facility] [place] [place] [address] PCP - General Family Medicine 09/29/18 documented as of this encounter"
--- OUTSIDE RECORDS SUMMARY | 2024-03-21 02:05 | External Medical Summary | Summary of Care ---
Author Name Unknown Organization [facility] Address [address] [place] [address] Phone [phone] Care Team Providers Care Dog Food Dough Mixer Name Role Phone Armando Hayward MD Primary Care Provider +1- [phone] Reason for Visit * Reason Comments Outpatient Testing Encounter Details Date Type Department Care Team (Late st Contact Info) Description 01/11/2024 8:10 AM EDT Laboratory Laboratory, [facility] [place] [address] [facility] [place] [phone] [facility] [address] [place] [address] Diffuse large B-cell lymphoma, unspecified body region (HCC) Allergies No known active allergiesdocumented as of this encounter (statuses as of 01/11/2024) Medications Medication Sig Dispensed Refills Start Date End Date Status MULTIVITAMINS PO CAPSIndications:Jamshid ne medical exam one each day 0 [...] as of this encounter (statuses as of 01/11/2024) Active Problems Problem Noted Date Diagnosed Date [...] as of this encounter (statuses as of 01/11/2024) Resolved Problems Problem Noted Date Diagnosed Date [...] as of this encounter (statuses as of 01/11/2024) Immunizations Name Administration Dates Next Due COVID-19 mRNA, LNP-s, No Pre serve, 2-Dose Series (Cirrascale) 08/08/2021,12/07/2020,11/16/2020 Pneumococcal Polysaccharide PPV23 (Pneumovax) 12/14/2021 Seasonal [...] 11:15 AM EDT Pharmacy Pharmacy Hematology Oncology [address] [address] [facility] [place], [facility] Hem/Onc [facility] [place] [address] 03/03/2024 5:40 PM EDT Office Visit [facility] [address] [place] [address] Armando Hayward MD [address] [place] [address] 03/26/2024 11:30 AM EDT Office Visit Hematology Oncology [facility] [address] [place] [address] Jn Fagan MD [address] [place] [address] Pending Results Name Type Priority Associated Diagnoses Date /Time COMPREHENSIVE METABOLIC PANEL Lab Routine Diffuse large B-cell lymphoma, unspecified body region (HCC) 01/11/2024 8:10 AM EDT LD Lab Routine Diffuse large B-cell lymphoma, unspecified body region (HCC) 01/11/2024 8:10 AM EDT Scheduled Procedures Name Priority Associated [...] Depression Screening 08/26/2024 08/26/2023, 04/11/20 15 GFR 12/13/2024 12/14/2023, 03/0 09/2023, 10/15/2023, Additional history exists Albumin/Creatinine Ratio 10/10/2025 10/10/2022 Diabetes Screening 12/13/2026 12/14/2023, 0 11/08/2023, 10/15/2023, Additional history exists Colonoscopy 04/24/2027 04/24/2022, 04/09, [...] Not on filedocumented as of this encounter Procedures Procedure Name Priority Date/Time Associated Diagnosis Comments DIFFERENTIAL, AUTOMATED Routine 01/11/2024 8:10 AM EDT Diffuse large B-cell lymphoma, unspecified body region (HCC) CBC Routine 01/11/2024 8:10 AM EDT Diffuse large B-cell lymphoma, unspecified body region (HCC) CBC Routine 01/11/2024 8:10 AM EDT Diffuse large B-cell lymphoma, unspecified body region (HCC) documented in this encounter Results * DIFFERENTIAL, AUTOMATED (01/11/2024 8:10 AM EDT) WBC 7.07 4.00 - 10.80 K/uL 01/11/2024 8:43 AM EDT [facility] Neutrophils % 50.9 40.0 - 75.0 % 01/11/2024 8:43 AM EDT [facility] Lymphocytes % 36.4 18.0 - 42.0 % 01/11/2024 8:43 AM EDT [facility] Monocytes % 9.8 1.0 - 11.0 % 01/11/2024 8:43 AM EDT [facility] Eosinophils % 2.3 0.0 - 6.0 % 01/11/2024 8:43 AM EDT [facility] Basophils % 0.6 0.0 - 2.0 % 01/11/2024 8:43 AM EDT [facility] Absolute Neutrophils 3.61 1.80 - 7.70 K/uL 01/11/2024 8:43 AM EDT [facility] Absolute Lymphocytes 2.57 1.00 - 4.80 K/ul 01/11/2024 8:43 AM EDT [facility] Absolute Monocytes 0.69 0.00 - 1.10 K/uL 01/11/2024 8:43 AM EDT [facility] Absolute Eosinophils 0.16 0.00 - 0.70 K/uL 01/11/2024 8:43 AM EDT [facility] Absolute Basophils 0.04 0.00 - 0.20 K/uL 01/11/2024 8:43 AM EDT [facility] Blood Venous blood specimen / Unknown Venipuncture / Unknown 01/11/2024 8:10 AM EDT 01/11/2024 8:28 AM EDT West Will DO LAB BLOOD ORDERABL ES [facility] [address] [place] [address] * (ABNORMAL) CBC (01/11/2024 8:10 AM EDT) [facility] Signature WBC 7.07 4.00 - 10.80 K/uL 01/11/2024 8:43 AM EDT [facility] RBC 4.77 4.50 - 5.25 M/uL 01/11/2024 8:43 AM EDT [facility] HGB 13.6(L) 14.0 - 16.8 g/dL 01/11/2024 8:43 AM EDT [facility] HCT 41.5 40.0 - 48.4 % 01/11/2024 8:43 AM EDT [facility] MCV 87.0 82.0 - 99.5 fL 01/11/2024 8:43 AM EDT [facility] MCH 28.5 27.0 - 34.0 pg 01/11/2024 8:43 AM EDT [facility] MCHC 32.8 32.0 - 36.0 g/dL 01/11/2024 8:43 AM EDT [facility] RDW 13.8 11.5 - 15.5 % 01/11/2024 8:43 AM EDT [facility] PLT 142 140 - 400 K/uL 01/11/2024 8:43 AM EDT [facility] MPV 10.2 6.6 - 11.1 fL 01/11/2024 8:43 AM EDT [facility] Blood Venous blood specimen / Unknown Venipuncture / Unknown 01/11/2024 8:10 AM EDT 01/11/2024 8:28 AM EDT West Will DO LAB BLOOD ORDERABL ES Performing Organization Address City/State/[facility] Co de Phone Number [facility] [place] [address] documented in this encounter Visit Diagnoses Diagnosis Diffuse large B-cell lymphoma, unspecified body region (HCC) documented in this encounter Advance Directives Latest [...] the patient have Health Care Power of Reception Clerk? No Full Code 05/22/2019 10:49 PM 05/24/2019 4:13 PM This order reflects the patients wishes and were consensually agreed upon. Question Answer Comments Discussion of Advance Directives occurred with: Patient Does the patient have a Living Will? No Does the patient have Health Care Power of Reception Clerk? No Full Code 04/17/2019 3:28 PM 04/22/2019 3:08 AM This o rder reflects the patients wishes and were consensually agreed upon. Question Answer Comments Discussion of Advance Directives occurred with: Patient/Family Care Teams Dog Food Dough Mixer Relationship Specialty Start Date End Date Armando Hayward MD [address] [place] [facility] [place] [address] PCP - General Family Medicine 09/29/18 documented as of this encounter
--- OUTSIDE RECORDS SUMMARY | 2024-03-21 02:05 | External Medical Summary | Summary of Care ---
Author Name Unknown Organization [facility] Address [address] [place] [address] Phone [phone] Care Team Providers Care Data Security Coordinator Name Role Phone Armando Hayward MD Primary Care Provider +1- [phone] Encounter Details Date Type Department Care Team (Late st Contact Info) Description 01/11/2024 Telephone [facility] Trauma [address] [place] [address] West Will, DO [address] [place] [facility] [place] [address] Allergies No known active allergiesdocumented as of this encounter (statuses as of 01/19/2024) Medications Medication Sig Dispensed Refills Start Date End Date Status MULTIVITAMINS PO CAPSIndications:Jamshid zhang medical exam one each day 0 06/04/2012 [...] as of this encounter (statuses as of 01/19/2024) Active Problems Problem Noted Date Diagnosed Date [...] as of this encounter (statuses as of 01/19/2024) Resolved Problems Problem Noted Date Diagnosed Date [...] as of this encounter (statuses as of 01/19/2024) Immunizations Name Administration Dates Next Due COVID-19 mRNA, LNP-s, No Pre serve, 2-Dose Series (MOMENTFACE SRO) 08/08/2021,12/07/2020,11/16/2020 Pneumococcal Polysaccharide PPV23 (Pneumovax) 12/14/2021 Seasonal [...] encounter Miscellaneous Notes * Telephone Encounter - West Will DO - 01/11/2024 8:20 AM EDT Orders only, labs documented in this encounter Plan of Treatment Upcoming Encounters Date Type Department Care Team (Late st Contact Info) Description 01/22/2024 11:15 AM EDT Pharmacy Pharmacy Hematology Oncology [address] [address] [facility] Hem[facility]Onc [address] [place] [address] 03/03/2024 5:40 PM EDT Office Visit [facility] [address] [place] [phone] Armando Hayward MD [address] [place] [address] 03/26/2024 11:30 AM EDT Office Visit Hematology Oncology [facility] [address] [place] [address] Jn Fagan MD [address] [place] [address] Scheduled Procedures Name Priority Associated Diagnoses Date/Ti [...] Not on filedocumented as of this encounter Results * LD (01/11/2024 8:10 AM EDT) LD 153 <=250 U/L 01/11/2024 8:4 9 PM EDT [facility] Blood Venous blood specimen / Unknown Venipuncture / Unknown 01/11/2024 8:10 AM EDT 01/11/2024 8:28 AM EDT West Will DO LAB BLOOD ORDERABL ES [facility] [address] [place] [address] * (ABNORMAL) COMPREHENSIVE METABOLIC PANEL (01/11/2024 8:10 AM EDT) BUN 17 6 - 20 mg/dL 01/11/2024 9:18 AM EDT [facility] Creatinine 1.1 0.6 - 1.2 mg/dL 01/11/2024 9:18 AM EDT [facility] Estimated Glomerular Filtration Rate 72 >=60 mL/min 01/11/2024 9:18 AM EDT [facility] Comment:eGFR is calculated b ased on the CKD-EPI 2020 equation Sodium 138 135 - 146 mmol/L 01/11/2024 9:18 AM EDT [facility] Potassium 4.4 3.5 - 5.1 mmol/L 01/11/2024 9:18 AM EDT [facility] Chloride 101 98 - 107 mmol/L 01/11/2024 9:18 AM EDT [facility] CO2 29 22 - 32 mmol/L 01/11/2024 9:18 AM EDT [facility] Anion Gap 8 7 - 15 mmol/L 01/11/2024 9:18 AM EDT [facility] Glucose 152(H) 70 - 120 mg/dL 01/11/2024 9:18 AM EDT [facility] Albumin 4.2 3.8 - 5.0 g/dL 01/11/2024 9:18 AM EDT [facility] AST 14 10 - 50 U/L 01/11/2024 9:18 AM EDT [facility] Alkaline Phosphatase 103 35 - 130 U/L 01/11/2024 9:18 AM EDT [facility] Bilirubin, Total 1.4(H) <=1.2 mg/dL 01/11/2024 9:18 AM EDT [facility] Calcium 9.1 8.4 - 10.2 mg/dL 01/11/2024 9:18 AM EDT [facility] Protein 6.8 6.0 - 8.3 g/dL 01/11/2024 9:18 AM EDT [facility] ALT 16 10 - 50 U/L 01/11/2024 9:18 AM EDT [facility] Blood Venous blood specimen / Unknown Venipuncture / Unknown 01/11/2024 8:10 AM EDT 01/11/2024 8:28 AM EDT West Will DO LAB BLOOD ORDERABL ES [facility] [address] [facility] [place] [address] documented in this encounter Visit Diagnoses Diagnosis [...] the patient have Health Care Power of Junior Bookkeeper? No Full Code 05/22/2019 10:49 PM 05/24/2019 4:13 PM This order reflects the patients wishes and were consensually agreed upon. Question Answer Comments Discussion of Advance Directives occurred with: Patient Does the patient have a Living Will? No Does the patient have Health Care Power of Junior Bookkeeper? No Full Code 04/17/2019 3:28 PM 04/22/2019 3:08 AM This o rder reflects the patients wishes and were consensually agreed upon. Question Answer Comments Discussion of Advance Directives occurred with: Patient/Family Care Teams Data Security Coordinator Relationship Specialty Start Date End Date Armadno Hayward MD [address] [place] [address] PCP - General Family Medicine 09/29/18 documented as of this encounter
--- OUTSIDE RECORDS SUMMARY | 2024-03-21 02:05 | External Medical Summary ---
Author Name Unknown Address Unknown Organization [id number]:LAB[facility]ATORY [facility] - [facility] [place] [address] [facility] [address] [facility] [address] Laboratory Report Ordering Provider Test Date Status CONSTANCE PETERSON 02/08/2024 08:04:12 Final Observation Date Value Abnormality Reference (Units ) Status HbA1C 02/08/2024 08:04:12 7.2 Above high normal 4. 0-5.6 (%) Final The use of HbA1c to monitor glycemic status is based on normal hemoglobin and HbA composition. This test should not be used in patients with abnormal hemoglobin that affects the half life of the red blood cell or the in vivo glycation rates. Glucose, estimated average 02/08/2024 08:04:12 160 Above high normal <126 (mg/dL) Cornelius stanton Performing Location LABORATORY [facility] - [address] [facility] [facility] [address]
--- OUTSIDE RECORDS SUMMARY | 2024-03-21 02:05 | External Medical Summary ---
Author Name Unknown Address Unknown Organization [id number]:LAB[facility]ATORY [facility] - [address] [facility] [place] [address] Laboratory Report Ordering Provider Test Date Status ANGELINA IBARRA 02/08/2024 08:04:12 Final Observation Date Value Abnormality Reference (Units ) Status BUN 02/08/2024 08:04:12 17 6-20 (mg/dL) Final Creatinine 02/08/2024 08:04:12 1.1 0.6-1.2 (mg/dL) Final Glomerular filtration rate/1.73 sq M.predicted [Volume Rate/Area] in Serum, Plasma or Blood by Creatinine-based formula (CKD-EPI) 02/08/2024 08:04:12 73 >=60 (mL/min) Final eGFR is calculated based on the CKD-EPI 2020 equation Sodium 02/08/2024 08:04:12 140 135-146 (m mol/L) Final Potassium 02/08/2024 08:04:12 4.6 3.5-5.1 (m mol/L) Final Cl 02/08/2024 08:04:12 99 98-107 (mm ol/L) Final CO2 02/08/2024 08:04:12 25 22-32 (mmo l/L) Final Anion gap 02/08/2024 08:04:12 16 Above high normal 7- 15 (mmol/L) Final Glucose 02/08/2024 08:04:12 156 Above high normal 70 -120 (mg/dL) Final Albumin 02/08/2024 08:04:12 4.4 3.8-5.0 (g /dL) Final AST (Aspartate aminotransferase) 02/08/2024 08:04:12 15 10-50 (U/L) Fin al Alk Phos 02/08/2024 08:04:12 114 35-130 (U/ L) Final Bilirubin, Total 02/08/2024 08:04:12 1.3 Above high no rmal <=1.2 (mg/dL) Final Calcium 02/08/2024 08:04:12 9.4 8.4-10.2 ( mg/dL) Final Protein 02/08/2024 08:04:12 6.3 6.0-8.3 (g /dL) Final ALT (Alanine aminotransferase) 02/08/2024 08:04:12 22 10-50 (U/L) Cornelius stanton Performing Location LAB[facility]ATORY [facility] - [facility] [address] [facility] [address]
--- OUTSIDE RECORDS SUMMARY | 2024-03-21 02:05 | External Medical Summary ---
Author Name Unknown Address Unknown Organization [id number]:[facility] [facility] - [address] [place] [address] Laboratory Report Ordering Provider Test Date Status CONSTANCE PETERSON 02/08/2024 08:04:12 Final Observation Date Value Abnormality Reference (Units ) Status BUN 02/08/2024 08:04:12 18 6-20 (mg/dL) Final Creatinine 02/08/2024 08:04:12 1.1 0.6-1.2 (mg/dL) Final Glomerular filtration rate/1.73 sq M.predicted [Volume Rate/Area] in Serum, Plasma or Blood by Creatinine-based formula (CKD-EPI) 02/08/2024 08:04:12 71 >=60 (mL/min) Final eGFR is calculated based on the CKD-EPI 2020 equation Sodium 02/08/2024 08:04:12 141 135-146 (m mol/L) Final Potassium 02/08/2024 08:04:12 4.6 3.5-5.1 (m mol/L) Final Cl 02/08/2024 08:04:12 102 98-107 (mm ol/L) Final CO2 02/08/2024 08:04:12 30 22-32 (mmo l/L) Final Anion gap 02/08/2024 08:04:12 9 7-15 (mmol /L) Final Glucose 02/08/2024 08:04:12 154 Above high normal 70 -120 (mg/dL) Final Calcium 02/08/2024 08:04:12 9.3 8.4-10.2 ( mg/dL) Final [facility] [address] [place] [address]
--- OUTSIDE RECORDS SUMMARY | 2024-03-21 02:06 | External Medical Summary | Summary of Care ---
Author Name Unknown Organization [facility] Address [address] [place] [address] Phone [phone] Care Team Providers Care Hand Plate Stacker Name Role Phone Armando Hayward MD Primary Care Provider +1- [phone] Reason for Visit * Reason Comments Medication Management Encounter Details Date Type Department Care Team (Late st Contact Info) Description 11/26/2023 11:15 AM EDT Pharmacy Pharmacy Hematology Oncology [facility] [address] [place] [address] [facility], [facility] Hem/Onc [address] [place] [address] Diffuse large B-cell lymphoma, unspecified body region (HCC)* Allergies No known active allergiesdocumented as of this encounter (statuses as of 11/26/2023) Medications Medication Sig Dispensed Refills Start Date [...] CAPSULE DAILY 1 Cap 0 09/21/2013 Active Gabapentin 300 MG Oral Capsule (Neurontin) Take 1 Capsule by mouth at bedtime. 30 Capsule 0 09/19/2023 Active Ibrutinib 420 MG Oral TabletIndications:Dif fuse [...] mouth daily 90 Tablet 3 10/15/2023 Active documented as of this encounter (statuses as of 11/26/2023) Active Problems Problem Noted Date Diagnosed Date [...] as of this encounter (statuses as of 11/26/2023) Resolved Problems Problem Noted Date Diagnosed Date [...] as of this encounter (statuses as of 11/26/2023) Immunizations Name Administration Dates Next Due COVID-19 mRNA, LNP-s, No Pre serve, 2-Dose Series (Fur and Mask) 08/08/2021,12/07/2020,11/16/2020 Pneumococcal Polysaccharide PPV23 (Pneumovax) 12/14/2021 Seasonal [...] as of this encounter Progress Notes * Carli Magana, formerly [facility] - 11/26/2023 2:36 PM EDT MEDICATION THERAPY MANAGEMENT IBRUTINIB (IMBRUVICA) TREATMENT PROGRESS NOTE Forrest Merrillayde [id number] Patient Phone Numbers Mobile (, Niyah) [phone] Communication: Left message requesting return call to assess toleration to therapy Current Treatment: Medication: Ibrutinib (Imbruvica) Indication: DLBCL, 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 Fagan (formerly Dr. Cruz) Interval History: Ibrutinib held 04/21/22-04/30/22 for colonoscopy Changes to medication list since last visit? No Follow up: 1 month Carli Magana, PharmD, BCOP Clinical Pharmacist, [facility] Oral Chemotherapy [facility] 11/26/2023, 2:39 PM Suggested lab monitoring: CBCd qmo; SCr/LFTs q3-4mo, uric acid levels as clinically necessary Time Spent on Encounter: < 5 minutes documented in this encounter Plan of Treatment Upcoming Encounters Date Type Department Care Team (Late st Contact Info) Description 12/24/2023 11:15 AM EDT Pharmacy Pharmacy Hematology Oncology [facility] [address] [place] [address] [facility], [facility] Hem/Onc [address] [place] [address] 01/14/2024 3:20 PM EDT Telemedicine Ortho Spine Surg Tawanda Garcia [address] [address] Igor Cunningham MD [address] [address] 03/03/2024 5:40 PM EDT Office Visit [facility] [address] [place] [address] Armando Hayward MD [address] [place] [address] Scheduled Procedures Name Priority Associated Diagnoses Date/Ti me COLONOSCOPY FLEXIBLE PROXIMAL DIAGNOSTIC Recall History of colon polyps Health Maintenance Due Date Last Done Comments Zoster Vaccines (2 of 2) 10/05/2022 08/10/2022 Pneumococcal Vaccine: 65+ Years (2 of 2 - PCV) 12/14/2022 12/14/2021 COVID-19 Vaccine (24 season) 2023 08/08/2021, 12/07/2020, 11/16/2020 Influenza Vaccine (FLU shot) (#1) 2023 05/28/2022, 06/22/2021, 06/10/2020, Additional history exists Depression Screening 08/26/2024 08/26/2023, 04/11/20 15 GFR 11/07/2024 11/08/2023, 0202/2024, 09/19/2023, Additional history exists Albumin/Creatinine Ratio 10/10/2025 10/10/2022 Diabetes Screening 11/07/2026 11/08/2023, 0 10/15/2023, 09/19/2023, Additional history exists COLONOSCOPY-EVERY 5 YRS AGES 18-100 04/24/2027 04/24/2022, 04/24/2022, 08/21/2016, Additional history exists Lipid Panel 02/10/2028 02/09/2023, 04/0 02/2022, 10/24/2020, Additional history exists DTaP,Tdap,and Td Vaccines (2 - Td or Tdap) 08/12/2030 08/12/2020 GARDASIL-HPV IMMUNIZATION SERIES Aged Out No longer [...] the patient have Health Care Power of Tennis Camp Instructor? No Full Code 05/22/2019 10:49 PM 05/24/2019 4:13 PM This order reflects the patients wishes and were consensually agreed upon. Question Answer Comments Discussion of Advance Directives occurred with: Patient Does the patient have a Living Will? No Does the patient have Health Care Power of Tennis Camp Instructor? No Full Code 04/17/2019 3:28 PM 04/22/2019 3:08 AM This o rder reflects the patients wishes and were consensually agreed upon. Question Answer Comments Discussion of Advance Directives occurred with: Patient/Family Care Teams Hand Plate Stacker Relationship Specialty Start Date End Date Armando Hayward MD [address] [place] [address] PCP - General Family Medicine 09/29/18 documented as of this encounter
--- OUTSIDE RECORDS SUMMARY | 2024-03-21 02:06 | External Medical Summary | Summary of Care ---
Author Name Unknown Organization [facility] Address [address] [place] [address] Phone [phone] Care Team Providers Care Oyster Grower Name Role Phone Armando Hayward MD Primary Care Provider +1- [phone] Encounter Details Date Type Department Care Team (Late st Contact Info) Description 12/18/2023 Patient Reported Data Patient Survey Ortho [facility]CE Allergies No known active allergiesdocumented as of this encounter (statuses as of 12/18/2023) Medications Medication Sig Dispensed Refills Start Date [...] as of this encounter (statuses as of 12/18/2023) Active Problems Problem Noted Date Diagnosed Date [...] as of this encounter (statuses as of 12/18/2023) Resolved Problems Problem Noted Date Diagnosed Date [...] as of this encounter (statuses as of 12/18/2023) Immunizations Name Administration Dates Next Due COVID-19 mRNA, LNP-s, No Pre serve, 2-Dose Series (SampleBoard) 08/08/2021,12/07/2020,11/16/2020 Pneumococcal Polysaccharide PPV23 (Pneumovax) 12/14/2021 Seasonal [...] 11:15 AM EDT Pharmacy Pharmacy Hematology Oncology [facility] [address] [place] [address] [facility], [facility] Hem/Onc [address] [place] [address] 01/14/2024 2:40 PM EDT [facility] [address] [address] Serjio Flores MD [address] [address] 03/03/2024 5:40 PM EDT [facility] [place] [address] [facility] [address] Armando Hayward MD [address] [place] [address] Scheduled Procedures Name Priority Associated [...] 12/14/2023, 0 11/08/2023, 10/15/2023, Additional history exists COLONOSCOPY-EVERY 5 YRS AGES [...] filedocumented as of this encounter Advance Directives Latest Code Status [...] the patient have Health Care Power of Apprentice Painter Hand? No Full Code 05/22/2019 10:49 PM 05/24/2019 4:13 PM Thi s order reflects the patients wishes and were consensually agreed upon. Question Answer Comments Discussion of Advance Directives occurred with: Patient Does the patient have a Living Will? No Does the patient have Health Care Power of Apprentice Painter Hand? No Full Code 04/17/2019 3:28 PM 04/22/2019 3:08 AM This o rder reflects the patients wishes and were consensually agreed upon. Question Answer Comments Discussion of Advance Directives occurred with: Patient/Family Care Teams Oyster Grower Relationship Specialty Start Date End Date Armando Hayward MD [address] [place] [address] PCP - General Family Medicine 09/29/18 documented as of this encounter
--- OUTSIDE RECORDS SUMMARY | 2024-03-21 02:06 | External Medical Summary | Summary of Care ---
Author Name Unknown Organization [facility] Address [address] [place] [address] Phone [phone] Care Team Providers Care Vamp Seamer Name Role Phone Armando Hayward MD Primary Care Provider +1- [phone] Reason for Visit * Reason Comments Outpatient Testing Encounter Details Date Type Department Care Team (Late st Contact Info) Description 12/14/2023 8:10 AM EDT Laboratory Laboratory, [facility] [address] [facility] [id number] [facility] [address] [place] [address] CLL (chronic lymphocytic leukemia) (HCC) Allergies No known active allergiesdocumented as of this encounter (statuses as of 12/14/2023) Medications Medication Sig Dispensed Refills Start Date End Date Status MULTIVITAMINS PO CAPSIndications:Tiri ne medical exam one each day 0 [...] as of this encounter (statuses as of 12/14/2023) Active Problems Problem Noted Date Diagnosed Date [...] as of this encounter (statuses as of 12/14/2023) Resolved Problems Problem Noted Date Diagnosed Date [...] as of this encounter (statuses as of 12/14/2023) Immunizations Name Administration Dates Next Due COVID-19 mRNA, LNP-s, No Pre serve, 2-Dose Series (fitkit) 08/08/2021,12/07/2020,11/16/2020 Pneumococcal Polysaccharide PPV23 (Pneumovax) 12/14/2021 Seasonal [...] 11:15 AM EDT Pharmacy Pharmacy Hematology Oncology [facility] [address] [place] [address] [facility], [facility] Hem/Onc [address] [place] [facility] [place] [address] 01/14/2024 2:40 PM EDT Office Visit Orthopaedics Spine Surgery, [facility] [address] [address] Serjio Flores MD [address] [place] [place] [address] 03/03/2024 5:40 PM EDT Office Visit [facility] [address] [place] [address] Armando Hayward MD [address] [place] [address] Pending Results Name Type Priority Associated Diagnoses Date /Time COMPREHENSIVE METABOLIC PANEL Lab STAT CLL (chronic lymphocytic leukemia) ([facility]) 12/14/2023 7:47 AM EDT LD Lab Routine CLL (chronic lymphocytic leukemia) ([facility]) 12/14/2023 7:47 AM EDT Scheduled Procedures Name Priority Associated [...] 08/26/2024 08/26/2023, 04/11/20 15 GFR 11/07/2024 11/08/2023, 02/0 02/2024, 09/19/2023, Additional history exists Albumin/Creatinine Ratio 10/10/2025 [...] Date/Time Associated Diagnosis Comments DIFFERENTIAL, AUTOMATED Routine 12/14/2023 7:47 AM EDT CLL (chronic lymphocytic leukemia) (HCC) CBC Routine 12/14/2023 7:47 AM EDT CLL (chronic lymphocytic leukemia) (HCC) CBC Routine 12/14/2023 7:47 AM EDT CLL (chronic lymphocytic leukemia) (HCC) documented in this encounter Results * DIFFERENTIAL, AUTOMATED (12/14/2023 7:47 AM EDT) WBC 6.42 4.00 - 10.80 K/uL 12/14/2023 8:01 AM EDT [facility] [place] [facility] Neutrophils % 48.1 40.0 - 75.0 % 12/14/2023 8:01 AM EDT [facility] [place] 57[facility]10 Lymphocytes % 39.6 18.0 - 42.0 % 12/14/2023 8:01 AM EDT [facility] [place] 57[facility]10 Monocytes % 9.2 1.0 - 11.0 % 12/14/2023 8:01 AM EDT [facility] [place] 57[facility]10 Eosinophils % 2.6 0.0 - 6.0 % 12/14/2023 8:01 AM EDT [facility] [place] 57-10 Basophils % 0.5 0.0 - 2.0 % 12/14/2023 8:01 AM EDT [facility] [place] 57[facility]10 Absolute Neutrophils 3.09 1.80 - 7.70 K/uL 12/14/2023 8:01 AM EDT [facility] [place] 57-10 Absolute Lymphocytes 2.54 1.00 - 4.80 K/ul 12/14/2023 8:01 AM EDT [facility] [place] 57[facility]10 Absolute Monocytes 0.59 0.00 - 1.10 K/uL 12/14/2023 8:01 AM EDT [facility] [place] 57[facility]10 Absolute Eosinophils 0.17 0.00 - 0.70 K/uL 12/14/2023 8:01 AM EDT [facility] [place] 57[facility]10 Absolute Basophils 0.03 0.00 - 0.20 K/uL 12/14/2023 8:01 AM EDT [facility] [place] 57[facility]10 Blood Venous blood specimen / Unknown Venipuncture / Unknown 12/14/2023 7:47 AM EDT 12/14/2023 7:47 AM EDT Kvng [facility] LAB BLOOD ORD ERABLES [facility] [place] [address] [address] * (ABNORMAL) CBC (12/14/2023 7:47 AM EDT) WBC 6.42 4.00 - 10.80 K/uL 12/14/2023 8:01 AM EDT [facility] [place] 57[facility]10 RBC 4.64 4.50 - 5.25 M/uL 12/14/2023 8:01 AM EDT [facility] [place] 57[facility]10 HGB 13.3(L) 14.0 - 16.8 g/dL 12/14/2023 8:01 AM EDT [facility] [place] 57[facility]10 HCT 40.4 40.0 - 48.4 % 12/14/2023 8:01 AM EDT [facility] [place] 57[facility]10 MCV 87.1 82.0 - 99.5 fL 12/14/2023 8:01 AM EDT [facility] [place] 5710 MCH 28.7 27.0 - 34.0 pg 12/14/2023 8:01 AM EDT [facility] [place] 57[facility]10 MCHC 32.9 32.0 - 36.0 g/dL 12/14/2023 8:01 AM EDT [facility] [place] [facility]10 RDW 14.1 11.5 - 15.5 % 12/14/2023 8:01 AM EDT [facility] 57[facility]10 PLT 115(L) 140 - 400 K/uL 12/14/2023 8:01 AM EDT [facility] 57-10 MPV 9.9 6.6 - 11.1 fL 12/14/2023 8:01 AM EDT [facility] 57-10 Blood Venous blood specimen / Unknown Venipuncture / Unknown 12/14/2023 7:47 AM EDT 12/14/2023 7:47 AM EDT Kvng [facility] LAB BLOOD ORD ERABLES [facility] [place] [address] [facility] [address] documented in this encounter Visit Diagnoses Diagnosis CLL (chronic lymphocytic leukemia) (HCC) Chronic lymphoid leukemia, without mention of having achieved remission documented in this encounter Advance Directives Latest [...] the patient have Health Care Power of Heat Sealing Machine Operator? No Full Code 05/22/2019 10:49 PM 05/24/2019 4:13 PM This order reflects the patients wishes and were consensually agreed upon. Question Answer Comments Discussion of Advance Directives occurred with: Patient Does the patient have a Living Will? No Does the patient have Health Care Power of Heat Sealing Machine Operator? No Full Code 04/17/2019 3:28 PM 04/22/2019 3:08 AM This o rder reflects the patients wishes and were consensually agreed upon. Question Answer Comments Discussion of Advance Directives occurred with: Patient/Family Care Teams Vamp Seamer Relationship Specialty Start Date End Date Armando Hayward MD [address] [facility] [place] [address] PCP - General Family Medicine 09/29/18 documented as of this encounter
--- OUTSIDE RECORDS SUMMARY | 2024-03-21 02:06 | External Medical Summary | Summary of Care ---
Author Name Unknown Organization [facility] Address [address] [place] [address] Phone [phone] Care Team Providers Care Change Agent Name Role Phone Armando Hayward MD Primary Care Provider +1- [phone] Reason for Visit * Reason Comments Medication Management Encounter Details Date Type Department Care Team (Late st Contact Info) Description 12/24/2023 11:15 AM EDT Pharmacy Pharmacy Hematology Oncology [facility] [address] [place] [address] [facility], [facility] Hem/Onc [address] [place] [address] Diffuse large B-cell lymphoma, unspecified body region (HCC)* Allergies No known active allergiesdocumented as of this encounter (statuses as of 12/25/2023) Medications Medication Sig Dispensed Refills Start Date [...] as of this encounter (statuses as of 12/25/2023) Active Problems Problem Noted Date Diagnosed Date [...] as of this encounter (statuses as of 12/25/2023) Resolved Problems Problem Noted Date Diagnosed Date [...] as of this encounter (statuses as of 12/25/2023) Immunizations Name Administration Dates Next Due COVID-19 mRNA, LNP-s, No Pre serve, 2-Dose Series (Xcovery) 08/08/2021,12/07/2020,11/16/2020 Pneumococcal Polysaccharide PPV23 (Pneumovax) 12/14/2021 Seasonal [...] this encounter Progress Notes * Isela Tim, [facility] - 12/25/2023 2:51 PM EDT MEDICATION THERAPY MANAGEMENT IBRUTINIB (IMBRUVICA) TREATMENT PROGRESS NOTE Forrest Martinez [id number] Patient Phone Numbers Mobile (, Niyah) [phone] Communication: Left message requesting return call to assess toleration to therapy Current Treatment: Medication: Ibrutinib (Imbruvica) Indication: DLBCL, 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 Fagan (formerly Dr. Cruz) Interval History: Ibrutinib held 04/21/22-04/30/22 for colonoscopy Per 05/18 OV, CBCd and CMP monthly Reports stable BP < 150/90 No other concerns or upcoming procedures, tolerating therapy well Changes to medication list since last visit? No Assessment and Plan: Left voicemail requesting return call to clinic to review toleration to therapy following resuming Assessment of compliance: N/a Assessment of adverse effects attributed to drug therapy: N/a Dose adjustment needed based on lab or adverse drug reaction? Not per labs Follow up: [facility] 01/21 Isela Tim, PharmD Ambulatory Clinical Pharmacist | Oral Chemotherapy Clinic [facility] 12/25/2023 2:52 PM Suggested lab monitoring: CBCd qmo; SCr/LFTs q3-4mo, uric acid levels as clinically necessary Time Spent on Encounter: 6 - 10 minutes Encounter Group: Hematology Encounter Interventions Item Category: Oral Chemotherapy Ibrutinib Problem/Rationale: Safety: Needs additional monitoring - Medication Requires monitoring Pharmacist Intervention(s): Toxicity monitoring Magnitude of Intervention: Monitoring with direction (Level 1) documented in this encounter Plan of Treatment Upcoming Encounters Date Type Department Care Team (Late st Contact Info) Description 01/14/2024 2:40 PM EDT Office Visit Orthopaedics Spine Surgery, [facility] [address] [facility] [place] [address] Serjio Flores MD [address] [facility] [address] [address] 01/22/2024 11:15 AM EDT Pharmacy Pharmacy Hematology Oncology [facility] [address] [place] [address] [facility], [facility] Hem/Onc [address] [place] [address] 03/03/2024 5:40 PM EDT Office Visit [address] [address] Armando Hayward MD [address] [place] [address] Scheduled Procedures Name Priority Associated Diagnoses Date/Ti me COLONOSCOPY FLEXIBLE PROXIMAL DIAGNOSTIC Recall History of colon polyps Health Maintenance Due Date Last Done Comments Zoster Vaccines (2 of 2) 10/05/2022 08/10/2022 Pneumococcal Vaccine: 65+ Years (2 of 2 - PCV) 12/14/2022 12/14/2021 COVID-19 Vaccine (4 - season) 2023 08/08/2021, 12/07/2020, 11/16/2020 Influenza [...] the patient have Health Care Power of Imaging Tech? No Full Code 05/22/2019 10:49 PM 05/24/2019 4:13 PM This order reflects the patients wishes and were consensually agreed upon. Question Answer Comments Discussion of Advance Directives occurred with: Patient Does the patient have a Living Will? No Does the patient have Health Care Power of Imaging Tech? No Full Code 04/17/2019 3:28 PM 04/22/2019 3:08 AM This o rder reflects the patients wishes and were consensually agreed upon. Question Answer Comments Discussion of Advance Directives occurred with: Patient/Family Care Teams Change Agent Relationship Specialty Start Date End Date Armando Hayward MD [address] [place] [address] PCP - General Family Medicine 09/29/18 documented as of this encounter"
--- OUTSIDE RECORDS SUMMARY | 2024-03-21 02:06 | External Medical Summary | Summary of Care ---
Author Name Unknown Organization [facility] Address [address] [place] [address] Phone [phone] Care Team Providers Care Warehouse Freight Handler Name Role Phone Armando Hayward MD Primary Care Provider +1- [phone] Reason for Visit * Reason Onset Date Comments FYI 10/07/2023 [facility] Nurse I&C TechnicianHandbag Parts Cutter Encounter Details Date Type Department Care Team (Late st Contact Info) Description 10/07/2023 Telephone [facility] [address] [place] [address] Armando Hayward MD [address] [place] [address] FYI ([facility] Nurse I&C Technician... Allergies No known active allergiesdocumented as of this encounter (statuses as of 01/06/2024) Medications Medication Sig Dispensed Refills Start Date End Date Status MULTIVITAMINS PO CAPSIndications:Routin e medical exam one each day 0 06/04/2012 Active OMEGA-3 FISH OIL 1000 MG PO CAPSIndications:Dyslip idemia, goal LDL below 100 Take one capsule by mouth twice a day 60 Cap 5 09/21/2013 Active COENZYME Q10 400 MG PO CAPSIndications:Dyslip idemia, goal LDL below 100 1 CAPSULE DAILY 1 Cap 0 09/21/2013 Active Ibrutinib 420 MG Oral TabletIndications:Diff use large B-cell lymphoma, unspecified body region (HCC) Take 1 Tablet by mouth daily. 0 09/30/2023 Active documented as of this encounter (statuses as of 01/06/2024) Active Problems Problem Noted Date Diagnosed Date [...] as of this encounter (statuses as of 01/06/2024) Resolved Problems Problem Noted Date Diagnosed Date [...] as of this encounter (statuses as of 01/06/2024) Immunizations Name Administration Dates Next Due COVID-19 mRNA, LNP-s, No Pre serve, 2-Dose Series (inSelly) 08/08/2021,12/07/2020,11/16/2020 Pneumococcal Polysaccharide PPV23 (Pneumovax) 12/14/2021 Seasonal [...] encounter Miscellaneous Notes * Telephone Encounter - Yoly Lyons OSA - 10/07/2023 9:08 AM EST FYI: Nurse I&C Technician with [facility] x [phone] documented in this encounter Plan of Treatment Upcoming Encounters Date Type Department Care Team (Late st Contact Info) Description 01/22/2024 11:15 AM EDT Pharmacy Pharmacy Hematology Oncology [facility] [address] [place] [address] [facility], [facility] Hem/Onc [address] [place] [address] 03/03/2024 5:40 PM EDT Office Visit [address] [address] Armando Hayward MD [address] [place] [address] 03/26/2024 11:30 AM EDT Office Visit Hematology Oncology [facility] [place] [address] [place] [address] Jn Fagan MD [address] [place] [address] Scheduled Procedures Name Priority Associated [...] the patient have Health Care Power of Pulley Worker? No Full Code 05/22/2019 10:49 PM 05/24/2019 4:13 PM This order reflects the patients wishes and were consensually agreed upon. Question Answer Comments Discussion of Advance Directives occurred with: Patient Does the patient have a Living Will? No Does the patient have Health Care Power of Pulley Worker? No Full Code 04/17/2019 3:28 PM 04/22/2019 3:08 AM This o rder reflects the patients wishes and were consensually agreed upon. Question Answer Comments Discussion of Advance Directives occurred with: Patient/Family Care Teams Warehouse Freight Handler Relationship Specialty Start Date End Date Armando Hayward MD [address] [place] [address] PCP - General Family Medicine 09/29/18 documented as of this encounter
--- OUTSIDE RECORDS SUMMARY | 2024-03-21 02:06 | External Medical Summary ---
Author Name Unknown Address Unknown Organization [id number] [address] [place] [id number] Laboratory Report Ordering Provider Test Date Status MARK RAMOS 12/14/2023 07:47:33 Final Observation Date Value Abnormality Reference (Units ) Status BUN 12/14/2023 07:47:33 18 6-20 (mg/dL) Final Creatinine 12/14/2023 07:47:33 1.1 0.6-1.2 (mg/dL) Final Glomerular filtration rate/1.73 sq M.predicted [Volume Rate/Area] in Serum, Plasma or Blood by Creatinine-based formula (CKD-EPI) 12/14/2023 07:47:33 72 >=60 (mL/min) Final eGFR is calculated based on the CKD-EPI 2020 equation Sodium 12/14/2023 07:47:33 139 135-146 (m mol/L) Final Potassium 12/14/2023 07:47:33 4.5 3.5-5.1 (m mol/L) Final Cl 12/14/2023 07:47:33 102 98-107 (mm ol/L) Final CO2 12/14/2023 07:47:33 30 22-32 (mmo l/L) Final Anion gap 12/14/2023 07:47:33 7 7-15 (mmol /L) Final Glucose 12/14/2023 07:47:33 158 Above high normal 70 -120 (mg/dL) Final Albumin 12/14/2023 07:47:33 4.3 3.8-5.0 (g /dL) Final AST (Aspartate aminotransferase) 12/14/2023 07:47:33 18 10-50 (U/L) Fin al Alk Phos 12/14/2023 07:47:33 107 35-130 (U/ L) Final Bilirubin, Total 12/14/2023 07:47:33 1.3 Above high no rmal <=1.2 (mg/dL) Final Calcium 12/14/2023 07:47:33 9.0 8.4-10.2 ( mg/dL) Final Protein 12/14/2023 07:47:33 6.6 6.0-8.3 (g /dL) Final ALT (Alanine aminotransferase) 12/14/2023 07:47:33 22 10-50 (U/L) Cornelius stanton Performing Location [facility] [place] [address] [facility] [address]
--- OUTSIDE RECORDS SUMMARY | 2024-03-21 02:06 | External Medical Summary | Summary of Care ---
Author Name Unknown Organization [facility] Address [address] [place] [address] Phone [phone] Care Team Providers Care Upsetter Helper Name Role Phone Armando Hayward MD Primary Care Provider +1- [phone] Reason for Visit * Reason Onset Date Comments Advice 09/05/2023 Encounter Details Date Type Department Care Team (Late st Contact Info) Description 09/05/2023 Telephone Hematology Oncology [facility] [address] [place] [address] Jn Fagan MD [address] [place] [address] Advice Allergies No known active allergiesdocumented as of this encounter (statuses as of 12/05/2023) Medications Medication Sig Dispensed Refills Start Date [...] CAPSULE DAILY 1 Cap 0 09/21/2013 Active documented as of this encounter (statuses as of 12/05/2023) Active Problems Problem Noted Date Diagnosed Date [...] as of this encounter (statuses as of 12/05/2023) Resolved Problems Problem Noted Date Diagnosed Date [...] as of this encounter (statuses as of 12/05/2023) Immunizations Name Administration Dates Next Due COVID-19 [...] you have serious difficulty h earing? No 07/01/2019 Are you blind or do you have serious difficulty seeing, even when wearing glasses? No 07/01/2019 Do you have serious difficul ty walking or climbing stairs? (5 years old or older) No 07/01/2019 Do you have difficulty dress ing or bathing? (5 years old or older) No 07/01/2019 Because of a physical, menta l, or emotional condition, do you have difficulty doing errands alone such as visiting a doctor s office or shopping? (15 years old or older) No 07/01/20 19 Cognitive Status Response Date of Assessm ent Because of a physical, menta l, or emotional condition, do you have serious difficulty concentrating, remembering, or making decisions? (5 years old or older) No 07/01/2019 documented as of this encounter Miscellaneous Notes * Telephone Encounter - Aracelis Whitten OSA - 09/05/2023 9:44 AM EST Tam from ortho is follow up ( see TE on 08-16 [facility] pharmacy). Patient is scheduled 18 for surgery with ortho and they need to know if patient needs to hold his Ibrutinib 420 mg daily. Please call her [phone] opt 4 or send a message in the chart and patient will need to be notified. They need answer HUE because if the patient needs to hold so many days prior, they need to know documented in this encounter Plan of Treatment Upcoming Encounters Date Type Department Care Team (Late st Contact Info) Description 12/24/2023 11:15 AM EDT Pharmacy Pharmacy Hematology Oncology [facility] [address] [place] [address] [facility], [facility] Hem/Onc [address] [place] [address] 01/14/2024 2:40 PM EDT Office Visit Orthopaedics Spine Surgery, [facility] [address] [place] [address] Serjio Flores MD [address] [place] [address] 03/03/2024 5:40 PM EDT Office Visit [facility] [address] [place] [address] Armando Hayward MD [address] [place] [address] Scheduled Procedures Name Priority Associated [...] 08/26/2024 08/26/2023, 04/11/20 15 GFR 11/07/2024 11/08/2023, 02/02/2024, 09/19/2023, Additional history exists Albumin/Creatinine Ratio 10/10/2025 [...] the patient have Health Care Power of Shuffle Board Operator? No Full Code 05/22/2019 10:49 PM 05/24/2019 4:13 PM This order reflects the patients wishes and were consensually agreed upon. Question Answer Comments Discussion of Advance Directives occurred with: Patient Does the patient have a Living Will? No Does the patient have Health Care Power of Shuffle Board Operator? No Full Code 04/17/2019 3:28 PM 04/22/2019 3:08 AM This o rder reflects the patients wishes and were consensually agreed upon. Question Answer Comments Discussion of Advance Directives occurred with: Patient/Family Care Teams Upsetter Helper Relationship Specialty Start Date End Date Armando Hayward MD [address] [place] [address] PCP - General Family Medicine 09/29/18 documented as of this encounter
--- OUTSIDE RECORDS SUMMARY | 2024-03-21 02:06 | External Medical Summary | Summary of Care ---
Author Name Unknown Organization [facility] Address [address] [place] [address] Phone [phone] Care Team Providers Care Collaborative Teacher Name Role Phone Armando Hayward MD Primary Care Provider +1- [phone] Reason for Visit * Reason Onset Date Comments Appointment 12/03/2023 Encounter Details Date Type Department Care Team (Late st Contact Info) Description 12/03/2023 Telephone Ortho Spine Surg Tawanda Garcia [address] [address] Igor Cunningham MD [address] [id number] Appointment Allergies No known active allergiesdocumented as of this encounter (statuses as of 12/10/2023) Medications Medication Sig Dispensed Refills Start Date [...] as of this encounter (statuses as of 12/10/2023) Active Problems Problem Noted Date Diagnosed Date [...] as of this encounter (statuses as of 12/10/2023) Resolved Problems Problem Noted Date Diagnosed Date [...] prostate 06/04/2012 11/04/2017 Shoulder joint pain 06/04/2012 02/26/20 18 Obesity, Class I, BMI 30.0-3 4.9 [...] as of this encounter (statuses as of 12/10/2023) Immunizations Name Administration Dates Next Due COVID-19 mRNA, LNP-s, No Pre serve, 2-Dose Series ([employer]) 08/08/2021,12/07/2020,11/16/2020 Pneumococcal Polysaccharide PPV23 (Pneumovax) 12/14/2021 Seasonal [...] encounter Miscellaneous Notes * Telephone Encounter - Laron Street OSA - 12/03/2023 3:53 PM EDT No opening with Radames darling of possible paternity, please advise scheduling, thank you * Telephone Encounter - Celina Santoyo OSA - 12/03/2023 12:48 PM EDT Pt has a telemed post op appt on 01/14/[address] 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 Please advise and help pt schedule within that timeframe if possible. Thank you so much!! Pt primary number: [phone] Dilia documented in this encounter Plan of Treatment Upcoming Encounters Date Type Department Care Team (Late st Contact Info) Description 12/24/2023 11:15 AM EDT Pharmacy Pharmacy Hematology Oncology [facility] [address] [place] [address] [facility], [facility] Hem/Onc [address] [place] [address] 01/14/2024 2:40 PM EDT [facility] [address] [place] [facility] [place] [address] Serjio Flores MD [address] [place] [facility] [place] [address] 03/03/2024 5:40 PM EDT Office Visit [facility] [address] [place] [phone] Armando Hayward MD [address] [place], [place] [phone] Scheduled Procedures Name Priority Associated Diagnoses Date/Ti [...] the patient have Health Care Power of Laundry Aide? No Full Code 05/22/2019 10:49 PM 05/24/2019 4:13 PM This order reflects the patients wishes and were consensually agreed upon. Question Answer Comments Discussion of Advance Directives occurred with: Patient Does the patient have a Living Will? No Does the patient have Health Care Power of Laundry Aide? No Full Code 04/17/2019 3:28 PM 04/22/2019 3:08 AM This o rder reflects the patients wishes and were consensually agreed upon. Question Answer Comments Discussion of Advance Directives occurred with: Patient/Family Care Teams Collaborative Teacher Relationship Specialty Start Date End Date Armando Hayward MD [address] [facility] [place] [address] PCP - General Family Medicine 09/29/18 documented as of this encounter
--- OUTSIDE RECORDS SUMMARY | 2024-03-21 02:06 | External Medical Summary | Summary of Care ---
Author Name Unknown Organization [facility] Address [address] [place] [address] Phone [phone] Care Team Providers Care Ap Processor Name Role Phone Armando Hayward MD Primary Care Provider +1- [phone] Reason for Visit * Reason Comments Outpatient Testing Encounter Details Date Type Department Care Team (Late st Contact Info) Description 01/11/2024 8:10 AM EDT Laboratory Laboratory, [facility] [address] [facility] [place] [phone] [facility] [address] [facility] [place] [address] Diffuse large B-cell lymphoma, unspecified body [...] mRNA, LNP-s, No Pre serve, 2-Dose Series ([employer]) 08/08/2021,12/07/2020,11/16/2020 Pneumococcal Polysaccharide PPV23 (Pneumovax) 12/14/2021 Seasonal [...] AM EDT Pharmacy Pharmacy Hematology Oncology [address] [address] [facility], [facility] Hem/Onc [facility] [place] [address] 03/03/2024 5:40 PM EDT Office Visit [facility] [address] [place] [address] Armando Hayward MD [address] [place] [address] 03/26/2024 11:30 AM EDT Office Visit Hematology Oncology [facility] [address] [place] [address] Jn Fagan MD [address] [place] [address] Pending Results Name Type Priority [...] ORDERABL ES [facility] [place] [address] [place] [address] * (ABNORMAL) CBC (01/11/2024 8:10 AM EDT) [facility] Signature WBC 7.07 4.00 - [...] 8:43 AM EDT [facility] [place] [address] RDW 13.8 11.5 - 15.5 % [...] LAB BLOOD ORDERABL ES Performing Organization Address City/State/[facility] Co de Phone Number [facility] [place] [address] [place] [address] documented in this encounter Visit Diagnoses Diagnosis [...] the patient have Health Care Power of Payroll Representative? No Full Code 05/22/2019 10:49 PM 05/24/2019 4:13 PM This order reflects the patients wishes and were consensually agreed upon. Question Answer Comments Discussion of Advance Directives occurred with: Patient Does the patient have a Living Will? No Does the patient have Health Care Power of Payroll Representative? No Full Code 04/17/2019 3:28 PM 04/22/2019 3:08 AM This o rder reflects the patients wishes and were consensually agreed upon. Question Answer Comments Discussion of Advance Directives occurred with: Patient/Family Care Teams Ap Processor Relationship Specialty Start Date End Date Armando Hayward MD [address] [place] [facility] [place] [address] PCP - General Family Medicine 09/29/18 documented as of this encounter
--- OUTSIDE RECORDS SUMMARY | 2024-03-21 02:06 | External Medical Summary ---
Author Name Unknown Address Unknown Organization K0G:[facility] [address] [place] [address] Laboratory Report Ordering Provider Test Date Status RACHELL SLATER 01/11/2024 08:10:00 Final Observation Date Value Abnormality Reference (Units ) Status SYNC LEUKOCYTES IN BLOOD BY AUTOMATED COUNT 01/11/2024 08:10:00 7.07 4.00-10.80 (K/uL) Final Segs 01/11/2024 08:10:00 50.9 40.0-75.0 (%) Final Lymphs % 01/11/2024 08:10:00 36.4 18.0-42.0 (%) Final Monos 01/11/2024 08:10:00 9.8 1.0-11.0 (%) Final Eosinophils 01/11/2024 08:10:00 2.3 0.0-6.0 (%) Final Basos 01/11/2024 08:10:00 0.6 0.0-2.0 (%) Final Absolute Segs 01/11/2024 08:10:00 3.61 1.80-7.70 (K/uL) Final Lymphs, absolute 01/11/2024 08:10:00 2.57 1.00-4.80 (K/ul) Final Monos, Abs 01/11/2024 08:10:00 0.69 0.00-1.10 (K/uL) Final Eos, Abs 01/11/2024 08:10:00 0.16 0.00-0.70 (K/uL) Final Basos, Abs 01/11/2024 08:10:00 0.04 0.00-0.20 (K/uL) Final [facility] [address] [place] [address]
--- OUTSIDE RECORDS SUMMARY | 2024-03-21 02:06 | External Medical Summary ---
Author Name Unknown Address Unknown Organization K0G:[facility] [address] [place] [address] Laboratory Report Ordering Provider Test Date Status MARK RAMOS 12/14/2023 07:47:33 Final Observation Date Value Abnormality Reference (Units ) Status WBC, Total 12/14/2023 07:47:33 6.42 4.00-10.8 0 (K/uL) Final RBC 12/14/2023 07:47:33 4.64 4.50-5.25 (M/uL) Final Hemoglobin 12/14/2023 07:47:33 13.3 Below low normal 14 .0-16.8 (g/dL) Final HCT 12/14/2023 07:47:33 40.4 40.0-48.4 (%) Final MCV 12/14/2023 07:47:33 87.1 82.0-99.5 (fL) Final MCH 12/14/2023 07:47:33 28.7 27.0-34.0 (pg) Final MCHC 12/14/2023 07:47:33 32.9 32.0-36.0 (g/dL) Final RDW 12/14/2023 07:47:33 14.1 11.5-15.5 (%) Final Platelets 12/14/2023 07:47:33 115 Below low normal 140 -400 (K/uL) Final MPV 12/14/2023 07:47:33 9.9 6.6-11.1 ( fL) Final Performing Location LAB[facility]ATORY [facility] [address] [place] [address]
--- OUTSIDE RECORDS SUMMARY | 2024-03-21 02:06 | External Medical Summary ---
Author Name Unknown Address Unknown Organization K[facility] [address] [place] [address] Laboratory Report Ordering Provider Test Date Status MARK RAMOS 12/14/2023 07:47:33 Final Observation Date Value Abnormality Reference (Units ) Status LDH 12/14/2023 07:47:33 156 <=250 (U/L ) Final Performing Location [facility] - [address] [place] [address]
--- OUTSIDE RECORDS SUMMARY | 2024-03-21 02:06 | External Medical Summary | Summary of Care ---
Author Name Unknown Organization [facility] Address [address] [place] [address] Phone [phone] Care Team Providers Care Hot Mill Observer Name Role Phone Armando Hayward MD Primary Care Provider +1- [phone] Reason for Visit * Reason Onset Date Comments Scheduling 12/04/2023 Encounter Details Date Type Department Care Team (Late st Contact Info) Description 12/04/2023 [facility]phone [facility] [address] [facility] [place] [address] Serjio Flores MD [address] [facility] [place] [address] Scheduling Allergies No known active allergiesdocumented as of this encounter (statuses as of 12/04/2023) Medications Medication Sig Dispensed Refills Start Date [...] as of this encounter (statuses as of 12/04/2023) Active Problems Problem Noted Date Diagnosed Date [...] as of this encounter (statuses as of 12/04/2023) Resolved Problems Problem Noted Date Diagnosed Date [...] as of this encounter (statuses as of 12/04/2023) Immunizations Name Administration Dates Next Due COVID-19 mRNA, LNP-s, No Pre serve, 2-Dose Series ([employer]) 08/08/2021,12/07/2020,11/16/2020 Pneumococcal Polysaccharide PPV23 (Pneumovax) 12/14/2021 Seasonal [...] encounter Miscellaneous Notes * Telephone Encounter - Abdulaziz Cardenas, ANIL - 12/04/2023 8:41 AM EDT Called pt and LVM letting them know they have been scheduled to see Dr. Flores on 01/13 as per staff message below. Pt was scheduled for 2:40, as it was the closest to their original appt with Dr. Mercado " Pt has a telemed post op appt [...] Thank you so much!! Pt primary number: [phone] Dilia " documented in this encounter Plan of Treatment Upcoming Encounters Date Type Department Care Team (Late st Contact Info) Description 12/24/2023 11:15 AM EDT Pharmacy Pharmacy Hematology Oncology [facility] [address] [place] [address] [place], [facility] Hem/Onc [address] [place] [address] 01/14/2024 2:40 PM EDT [facility] [address] [facility] [place] [address] Serjio Flores MD [address] [facility] [place] [address] 03/03/2024 5:40 PM EDT Office Visit [facility] [address] [place] [address] Armando Hayward MD [address] [place] [address] Scheduled Procedures Name Priority Associated [...] Additional history exists Lipid Panel 02/10/2028 02/09/2023, 0402/2022, 10/24/2020, Additional history exists DTaP,Tdap,and Td Vaccines [...] the patient have Health Care Power of Fabric And Textile Factory Worker? No Full Code 05/22/2019 10:49 PM 05/24/2019 4:13 PM This order reflects the patients wishes and were consensually agreed upon. Question Answer Comments Discussion of Advance Directives occurred with: Patient Does the patient have a Living Will? No Does the patient have Health Care Power of Fabric And Textile Factory Worker? No Full Code 04/17/2019 3:28 PM 04/22/2019 3:08 AM This o rder reflects the patients wishes and were consensually agreed upon. Question Answer Comments Discussion of Advance Directives occurred with: Patient/Family Care Teams Hot Mill Observer Relationship Specialty Start Date End Date Armando Hayward MD [address] [facility] [place] [address] PCP - General Family Medicine 09/29/18 documented as of this encounter
--- OUTSIDE RECORDS SUMMARY | 2024-03-21 02:06 | External Medical Summary | Summary of Care ---
Author Name Unknown Organization [facility] Address [address] [place] [address] Phone [phone] Care Team Providers Care Dental Nurse Name Role Phone Armando Hayward MD Primary Care Provider +1- [phone] Reason for Visit * Reason Onset Date Comments Medication Refill 12/30/2023 Gracia Encounter Details Date Type Department Care Team (Late st Contact Info) Description 12/30/2023 Refill Hematology Oncology [facility] [address] [place] [address] Jn Fagan MD [address] [place] [address] Allergies No known active allergiesdocumented as of this encounter (statuses as of 01/01/2024) Medications Medication Sig Dispensed Refills Start Date End Date Status MULTIVITAMINS PO CAPSIndications:Ro utine medical exam one each day 0 06/04/2012 Acti ve OMEGA-3 FISH OIL 1000 [...] 0 09/30/2023 Active Ibrutinib 420 MG Oral TabletIndications: [...] at bedtime. 30 Capsule 0 01/01/2024 Active Gabapentin 300 MG Oral Capsule (Neurontin) Take 1 Capsule by mouth at bedtime. 30 Capsule 0 09/19/2023 12/30/2023 Discontinued (Refill) documented as of this encounter (statuses as of 01/01/2024) Active Problems Problem Noted Date Diagnosed Date [...] as of this encounter (statuses as of 01/01/2024) Resolved Problems Problem Noted Date Diagnosed Date [...] as of this encounter (statuses as of 01/01/2024) Immunizations Name Administration Dates Next Due COVID-19 mRNA, LNP-s, No Pre serve, 2-Dose Series ([employer]) 08/08/2021,12/07/2020,11/16/2020 Pneumococcal Polysaccharide PPV23 (Pneumovax) 12/14/2021 Seasonal [...] Telephone Encounter - Jn Fagan MD - 01/01/2024 12:08 PM EDT Signed Prescriptions: Disp Refills Gabapentin 300 MG Oral Capsule (Neurontin) 30 Cap*0 Sig: Take 1 Capsule by mouth at bedtime. Authorizing Provider: JN FAGAN * Telephone Encounter - Britt Dudley LPN - 12/31/2023 3:20 PM EDTPending Prescriptions: Disp Refills Gabapentin 300 MG Oral Capsule (Neurontin) 30 Cap*0 Sig: Take 1 Capsule by mouth at bedtime. * Telephone Encounter - Britt Dudley LPN - 12/31/2023 3:17 PM EDT [facility] [place] requesting refills of Gabapentin for patient. Please review and sign if appropriate. * Telephone Encounter - Willa Lopez OSA - 12/30/2023 10:32 AM EDT Fax request received documented in this encounter Plan of Treatment Upcoming Encounters Date Type Department Care Team (Late st Contact Info) Description 01/22/2024 11:15 AM EDT Pharmacy Pharmacy Hematology Oncology [facility] [address] [place] [address] [facility] [place] Hem/Onc [address] [place] [address] 03/03/2024 5:40 PM EDT Office Visit [address] [address] Armando Hayward MD [address] [place] [address] 03/26/2024 11:30 AM EDT Office Visit Hematology Oncology [facility] [address] [place] [address] Jn Fagan MD [address] [place] [address] Scheduled Procedures Name Priority Associated [...] 08/26/2024 08/26/2023, 04/11/20 15 GFR 12/13/2024 12/14/2023, 0309/2023, 10/15/2023, Additional history exists Albumin/Creatinine Ratio 10/10/2025 10/10/2022 Diabetes Screening 12/13/2026 12/14/2023, 0 11/08/2023, 10/15/2023, Additional history exists COLONOSCOPY-EVERY 5 YRS AGES 18-100 04/24/2027 04/24/2022, 04/24/2022, 08/21/2016, Additional history exists Lipid Panel 02/10/2028 02/09/2023, 040 02/2022, 10/24/2020, Additional history exists DTaP,Tdap,and Td [...] the patient have Health Care Power of Information Systems Operator? No Full Code 05/22/2019 10:49 PM 05/24/2019 4:13 PM This order reflects the patients wishes and were consensually agreed upon. Question Answer Comments Discussion of Advance Directives occurred with: Patient Does the patient have a Living Will? No Does the patient have Health Care Power of Information Systems Operator? No Full Code 04/17/2019 3:28 PM 04/22/2019 3:08 AM This o rder reflects the patients wishes and were consensually agreed upon. Question Answer Comments Discussion of Advance Directives occurred with: Patient/Family Care Teams Dental Nurse Relationship Specialty Start Date End Date Armando Hayward MD [address] [facility] [place] [address] PCP - General Family Medicine 09/29/18 documented as of this encounter
--- OUTSIDE RECORDS SUMMARY | 2024-03-21 02:06 | External Medical Summary ---
Author Name Unknown Address Unknown Organization K01:LAB[facility]ATORY [facility] - [address] [place] [address] Laboratory Report Ordering Provider Test Date Status RACHELL SLATER 01/11/2024 08:10:00 Final Observation Date Value Abnormality Reference (Units ) Status LDH 01/11/2024 08:10:00 153 <=250 (U/L ) Final Performing Location [facility] - [address] [place] [address]
--- OUTSIDE RECORDS SUMMARY | 2024-03-21 02:06 | External Medical Summary ---
Author Name Unknown Address Unknown Organization K0G:[facility] [address] [place] [address] Laboratory Report Ordering Provider Test Date Status RACHELL SLATER 01/11/2024 08:10:00 Final Observation Date Value Abnormality Reference (Units ) Status WBC, Total 01/11/2024 08:10:00 7.07 4.00-10.8 0 (K/uL) Final RBC 01/11/2024 08:10:00 4.77 4.50-5.25 (M/uL) Final Hemoglobin 01/11/2024 08:10:00 13.6 Below low normal 14 .0-16.8 (g/dL) Final HCT 01/11/2024 08:10:00 41.5 40.0-48.4 (%) Final MCV 01/11/2024 08:10:00 87.0 82.0-99.5 (fL) Final MCH 01/11/2024 08:10:00 28.5 27.0-34.0 (pg) Final MCHC 01/11/2024 08:10:00 32.8 32.0-36.0 (g/dL) Final RDW 01/11/2024 08:10:00 13.8 11.5-15.5 (%) Final Platelets 01/11/2024 08:10:00 142 140-400 (K /uL) Final MPV 01/11/2024 08:10:00 10.2 6.6-11.1 ( fL) Final Performing Location [facility] [place] [address]
--- OUTSIDE RECORDS SUMMARY | 2024-03-21 02:06 | External Medical Summary ---
Author Name Unknown Address Unknown Organization K0G:[facility] [place] [address] [place] [address] Laboratory Report Ordering Provider Test Date Status RACHELL SLATER 01/11/2024 08:10:00 Final Observation Date Value Abnormality Reference (Units ) Status BUN 01/11/2024 08:10:00 17 6-20 (mg/dL) Final Creatinine 01/11/2024 08:10:00 1.1 0.6-1.2 (mg/dL) Final Glomerular filtration rate/1.73 sq M.predicted [Volume Rate/Area] in Serum, Plasma or Blood by Creatinine-based formula (CKD-EPI) 01/11/2024 08:10:00 72 >=60 (mL/min) Final eGFR is calculated based on the CKD-EPI 2020 equation Sodium 01/11/2024 08:10:00 138 135-146 (m mol/L) Final Potassium 01/11/2024 08:10:00 4.4 3.5-5.1 (m mol/L) Final Cl 01/11/2024 08:10:00 101 98-107 (mm ol/L) Final CO2 01/11/2024 08:10:00 29 22-32 (mmo l/L) Final Anion gap 01/11/2024 08:10:00 8 7-15 (mmol /L) Final Glucose 01/11/2024 08:10:00 152 Above high normal 70 -120 (mg/dL) Final Albumin 01/11/2024 08:10:00 4.2 3.8-5.0 (g /dL) Final AST (Aspartate aminotransferase) 01/11/2024 08:10:00 14 10-50 (U/L) Fin al Alk Phos 01/11/2024 08:10:00 103 35-130 (U/ L) Final Bilirubin, Total 01/11/2024 08:10:00 1.4 Above high no rmal <=1.2 (mg/dL) Final Calcium 01/11/2024 08:10:00 9.1 8.4-10.2 ( mg/dL) Final Protein 01/11/2024 08:10:00 6.8 6.0-8.3 (g /dL) Final ALT (Alanine aminotransferase) 01/11/2024 08:10:00 16 10-50 (U/L) Cornelius stanton Performing Location LABORATORY [place] [address] [facility] [address]
--- OUTSIDE RECORDS SUMMARY | 2024-03-21 02:06 | External Medical Summary ---
Author Name Unknown Address Unknown Organization K0G:[facility] [address] [place] [address] Laboratory Report Ordering Provider Test Date Status MARK RAMOS 12/14/2023 07:47:33 Final Observation Date Value Abnormality Reference (Units ) Status SYNC LEUKOCYTES IN BLOOD BY AUTOMATED COUNT 12/14/2023 07:47:33 6.42 4.00-10.80 (K/uL) Final Segs 12/14/2023 07:47:33 48.1 40.0-75.0 (%) Final Lymphs % 12/14/2023 07:47:33 39.6 18.0-42.0 (%) Final Monos 12/14/2023 07:47:33 9.2 1.0-11.0 (%) Final Eosinophils 12/14/2023 07:47:33 2.6 0.0-6.0 (%) Final Basos 12/14/2023 07:47:33 0.5 0.0-2.0 (%) Final Absolute Segs 12/14/2023 07:47:33 3.09 1.80-7.70 (K/uL) Final Lymphs, absolute 12/14/2023 07:47:33 2.54 1.00-4.80 (K/ul) Final Monos, Abs 12/14/2023 07:47:33 0.59 0.00-1.10 (K/uL) Final Eos, Abs 12/14/2023 07:47:33 0.17 0.00-0.70 (K/uL) Final Basos, Abs 12/14/2023 07:47:33 0.03 0.00-0.20 (K/uL) Final [facility]forming Location [facility] [place] [address]
--- OUTSIDE RECORDS SUMMARY | 2024-03-21 02:07 | External Medical Summary | Summary of Care ---
Author Name Unknown Organization [facility] Address [address] [place] [address] Phone [phone] Care Team Providers Care Legal Counsel Name Role Phone Armando Hayward MD Primary Care Provider +1- [phone] Reason for Visit * Reason Comments Medication Management Encounter Details Date Type Department Care Team (Late st Contact Info) Description 10/29/2023 11:15 AM [facility] Pharmacy Pharmacy Hematology Oncology [facility] [address] [place] [address] [facility], [facility] Hem/Onc [address] [place] [address] Diffuse large B-cell lymphoma, unspecified body region (HCC)* Allergies No known active allergiesdocumented as of this encounter (statuses as of 10/29/2023) Medications Medication Sig Dispensed Refills Start Date [...] as of this encounter (statuses as of 10/29/2023) Active Problems Problem Noted Date Diagnosed Date [...] as of this encounter (statuses as of 10/29/2023) Resolved Problems Problem Noted Date Diagnosed Date [...] as of this encounter (statuses as of 10/29/2023) Immunizations Name Administration Dates Next Due COVID-19 mRNA, LNP-s, No Pre serve, 2-Dose Series (logtrust) 08/08/2021,12/07/2020,11/16/2020 Pneumococcal Polysaccharide PPV23 (Pneumovax) 12/14/2021 Seasonal [...] this encounter Progress Notes * Isela Tim, [facility] - 10/29/2023 3:23 PM EST MEDICATION THERAPY MANAGEMENT IBRUTINIB (IMBRUVICA) TREATMENT PROGRESS NOTE Forrest Martinez [id number] Patient Phone Numbers Mobile (, [place]) [phone] Communication: Left message requesting return call to assess toleration to therapy Current Treatment: Medication: Ibrutinib (Imbruvica) Indication: DLBCL, 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 Fagan (formerly Dr. Cruz) Interval History: Ibrutinib held 04/21/22-04/30/22 for colonoscopy Per 05/18 OV, CBCd and CMP monthly Reports stable BP < 150/90 No other concerns or upcoming procedures, tolerating therapy well Changes to medication list since last visit? No Assessment and Plan: Left voicemail requesting return call to clinic to review toleration to therapy following resuming Per 10/15 OV, counts adequate Assessment of compliance: N/a Assessment of adverse effects attributed to drug therapy: N/a Dose adjustment needed based on lab or adverse drug reaction? Not per labs Follow up: [facility] 11/25 Isela Tim, PharmD Ambulatory Clinical Pharmacist | Oral Chemotherapy Clinic [facility] 10/29/2023 3:23 PM Suggested lab monitoring: CBCd qmo; SCr/LFTs [...] Care Team (Late st Contact Info) Description 11/21/2023 3:00 PM EDT Telemedicine Ortho Spine Surg Tawanda Garcia [address] [place] [address] Igor Cunningham MD [address] [place] [address] 11/26/2023 11:15 AM EDT Pharmacy Pharmacy Hematology Oncology [place] [address] [place] [address] [facility], [facility] Hem/Onc [address] [place] [address] 01/09/2024 2:40 PM EDT Telemedicine Ortho Spine Surg Tawanda Garcia [address] [place] [address] Igor Cunningham MD [address] [place] [address] 03/03/2024 5:40 PM EDT Office Visit [facility] [address] [place] [address] Armando Hayward MD [address] [place] [address] Scheduled Procedures Name Priority Associated [...] Depression Screening 08/26/2024 08/26/2023, 04/11/20 15 GFR 10/15/2024 10/15/2023, 09/09, 09/14/2023, Additional history exists Albumin/Creatinine Ratio 10/10/2025 10/10/2022 Diabetes Screening 10/15/2026 10/15/2023, 0 09/19/2023, 09/18/2023, Additional history exists COLONOSCOPY-EVERY 5 YRS AGES [...] the patient have Health Care Power of Makeup Sales Advisor? No Full Code 05/22/2019 10:49 PM 05/24/2019 4:13 PM This order reflects the patients wishes and were consensually agreed upon. Question Answer Comments Discussion of Advance Directives occurred with: Patient Does the patient have a Living Will? No Does the patient have Health Care Power of Makeup Sales Advisor? No Full Code 04/17/2019 3:28 PM 04/22/2019 3:08 AM This o rder reflects the patients wishes and were consensually agreed upon. Question Answer Comments Discussion of Advance Directives occurred with: Patient/Family Care Teams Legal Counsel Relationship Specialty Start Date End Date Armando Hayward MD [address] [place] [address] PCP - General Family Medicine 09/29/18 documented as of this encounter"
--- OUTSIDE RECORDS SUMMARY | 2024-03-21 02:07 | External Medical Summary | Summary of Care ---
Author Name Unknown Organization [facility] Address [address] [place] [address] Phone [phone] Care Team Providers Care Electrocardiograph Repairer Name Role Phone Armando Hayward MD Primary Care Provider +1- [phone] Reason for Visit * Reason Comments Medication Management Encounter Details Date Type Department Care Team (Late st Contact Info) Description 10/29/2023 11:[address] [facility] Pharmacy Pharmacy Hematology Oncology [facility] [address] [place] [address] [facility] Hem/Onc [address] [place] [address] Diffuse large B-cell lymphoma, unspecified body region (HCC)* Allergies No known active allergiesdocumented as of this encounter (statuses as of 11/11/2023) Medications Medication Sig Dispensed Refills Start Date [...] as of this encounter (statuses as of 11/11/2023) Active Problems Problem Noted Date Diagnosed Date [...] as of this encounter (statuses as of 11/11/2023) Resolved Problems Problem Noted Date Diagnosed Date [...] as of this encounter (statuses as of 11/11/2023) Immunizations Name Administration Dates Next Due COVID-19 mRNA, LNP-s, No Pre serve, 2-Dose Series ([employer]) 08/08/2021,12/07/2020,11/16/2020 Pneumococcal Polysaccharide PPV23 (Pneumovax) 12/14/2021 Seasonal [...] this encounter Progress Notes * Isela Tim, [facility] - 10/29/2023 3:23 PM EST MEDICATION THERAPY MANAGEMENT IBRUTINIB (IMBRUVICA) TREATMENT PROGRESS NOTE Forrest Martinez [id number] Patient Phone Numbers Mobile (, Niyah) [phone] Communication: Left message requesting return call to assess toleration to therapy Current Treatment: Medication: Ibrutinib (Imbruvica) Indication: DLBCL, 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 Fagan (formerly Dr. Cruz) Interval History: [...] drug reaction? Not per labs Follow up: [facility] 11/25 Isela Tim, PharmD Ambulatory Clinical Pharmacist | Oral Chemotherapy Clinic [facility] 10/29/2023 3:23 PM Suggested lab monitoring: CBCd [...] Spine Surg Tawanda Garcia [address] [place] [address] Igor Cunningham MD [address] [place] [address] 11/26/2023 11:15 AM EDT Pharmacy Pharmacy Hematology Oncology [place] [address] [place] [address] [facility] Hem/Onc [address] [place] [address] 01/09/2024 2:40 PM EDT Telemedicine Ortho Spine Surg Tawanda Garcia [address] [place] [address] Igor Cunningham MD [address] [place] [address] 03/03/2024 5:40 PM EDT Office Visit [facility] [address] [place] [address] Armando Hayward MD [address] [place] [address] Scheduled Procedures Name Priority Associated [...] the patient have Health Care Power of Senior Interior Designer? No Full Code 05/22/2019 10:49 PM 05/24/2019 4:13 PM This order reflects the patients wishes and were consensually agreed upon. Question Answer Comments Discussion of Advance Directives occurred with: Patient Does the patient have a Living Will? No Does the patient have Health Care Power of Senior Interior Designer? No Full Code 04/17/2019 3:28 PM 04/22/2019 3:08 AM This o rder reflects the patients wishes and were consensually agreed upon. Question Answer Comments Discussion of Advance Directives occurred with: Patient/Family Care Teams Electrocardiograph Repairer Relationship Specialty Start Date End Date Armando Hayward MD [address] [place] [address] PCP - General Family Medicine 09/29/18 documented as of this encounter"
--- OUTSIDE RECORDS SUMMARY | 2024-03-21 02:07 | External Medical Summary | Summary of Care ---
Author Name Unknown Organization [facility] Address [address] [place] [address] Phone [phone] Care Team Providers Care Cold Header Operator Name Role Phone Armando Hayward MD Primary Care Provider +1- [phone] Reason for Visit * Reason Comments Follow Up Encounter Details Date Type Department Care Team (Late st Contact Info) Description 10/15/2023 11:00 AM EST Office Visit [facility] [place] [address] [place] [address] Jn Fagan MD [address] [place] [address] Diffuse large B-cell lymphoma, unspecified body region (HCC)*; CLL (chronic lymphocytic leukemia) (HCC); Dyer's syndrome (HCC) Allergies No known active allergiesdocumented as of this encounter (statuses as of 10/15/2023) Medications Medication Sig Dispensed Refills Start Date [...] CAPSULE DAILY 1 Cap 0 09/21/2013 Active Losartan Potassium 100 MG Oral Tablet (Cozaar)Indications:E ssential hypertension with goal blood pressure less than 140/90 take 1 tablet by mouth daily 90 Tablet 0 07/25/2023 Active Pravastatin Sodium 80 MG Oral TabletIndications:Dys lipidemia, goal LDL below 100 take 1 tablet by mouth at bedtime 90 Tablet 0 07/25/2023 Active Gabapentin 300 MG Oral Capsule (Neurontin) [...] mouth daily. 30 Tablet 5 10/09/2023 Active documented as of this encounter (statuses as of 10/15/2023) Active Problems Problem Noted Date Diagnosed Date [...] as of this encounter (statuses as of 10/15/2023) Resolved Problems Problem Noted Date Diagnosed Date [...] as of this encounter (statuses as of 10/15/2023) Immunizations Name Administration Dates Next Due COVID-19 mRNA, LNP-s, No Pre serve, 2-Dose Series (ReDent Nova) 08/08/2021,12/07/2020,11/16/2020 Pneumococcal Polysaccharide PPV23 (Pneumovax) 12/14/2021 Seasonal [...] Date Smoking Tobacco: Never Smokeless Tobacco: Never Tobacco Cessation:Counseling Given: Not Answered Alcohol Use Standard Drinks/Week Comments Not Currently [...] on file documented as of this encounter Last Filed Vital Signs Vital Sign Reading Time Taken Comments Blood Pressure 159/85 10/15/2023 11:00 AM EST Pulse 69 10/15/2023 11:00 AM EST Temperature 36.1 C (96.9 F) 10/15/2023 1 1:00 AM EST Respiratory Rate 18 10/15/2023 11:0 0 AM EST Oxygen Saturation 96% 10/15/2023 11: 00 AM EST Inhaled Oxygen Concentration - - Weight 126.2 kg (278 lb 3.2 oz) 024 11:00 AM EST Height - - Body Mass Index 34.77 10/15/2023 8:21 AM EST documented in this encounter Functional Status Functional Status Response [...] as of this encounter Progress Notes * Jn Fagan MD - 10/15/2023 11:34 AM EST Subjective Forrest Martinez is a 68 year old male. Chief Complaint Patient presents with Follow Up HPI:68yo male with a history of DLBCL,Dyer's. He is in CR,on IMBRUVICA. Tolerating well and is still well controlled. Just had back surgery and has worked well. No more numbness in his left leg and his ambulation is well. 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 Neutropenic fever (HCC) D70.9, R50.81 Anemia due to antineoplastic chemotherapy D64.81, T45.1X5A Prostate cancer (HCC) C61 Current Outpatient Medications Medication Sig Dispense Refill MULTIVITAMINS PO CAPS one each day OMEGA-3 FISH OIL 1000 MG PO CAPS Take one capsule by mouth twice a day 60 Cap 5 COENZYME Q10 400 MG PO CAPS 1 CAPSULE DAILY 1 Cap 0 Losartan Potassium 100 MG Oral Tablet (Cozaar) take 1 tablet by mouth daily 90 Tablet 0 Pravastatin Sodium 80 MG Oral Tablet take 1 tablet by mouth at bedtime 90 Tablet 0 Gabapentin 300 MG Oral Capsule (Neurontin) Take 1 Capsule by mouth at bedtime. 30 Capsule 0 Ibrutinib 420 MG Oral Tablet Take 1 Tablet by mouth daily. Ibrutinib 420 MG Oral Tablet Take 1 tablet by mouth daily. 30 Tablet 5 No current facility-administered medications for this visit. Past Medical History: Diagnosis Date Arthritis Dyslipidemia, goal LDL below 100 HTN, goal below 140/90 Hypertensive retinopathy Lumbar radiculopathy Non Hodgkin's lymphoma (HCC) Prostate cancer (HCC) Spinal stenosis of lumbar region without neurogenic claudication Past Surgical History: Procedure Laterality Date BX LYMPH NODE-DEEP CERV Right 04/03/2019 BIOPSY LYMPH NODE DEEP CERVICAL performed by Emily Marie MD at [facility] COLONOSCOPY, DIAGNOSTIC (RECTUM) 08/21/2016 adenomatous polyp, diverticulosis, repeat 5 yrs/COLONOSCOPY FLEXIBLE PROXIMAL DIAGNOSTIC performed by Rod Nobles MD at ENDOSCOPY [facility] COLONOSCOPY, DIAGNOSTIC (RECTUM) 04/24/2022 external hemorrhoids, multi polyps in transverse, internal hemorrhoids / biopsies benign adenomatous polyps / 5 year recall / COLONOSCOPY FLEXIBLE PROXIMAL DIAGNOSTIC performed by Kim Pulliam ENDOSCOPY [facility] COLORECTAL CANCER SCREEN; NOT AT RISK 02/27/2011 normal with fair prep, repeat in 5 years DENTAL SURGERY PROCEDURE NEC IR VENOUS ACCESS MEDIPORT 06/23/2021 REMOVE ADDED SPINE LAMINA, 1 SEG N/A 09/18/2023 LAMINECTOMY FACETECTOMY AND FORAMINOTOMY ADDITIONAL LEVELS performed by Igor Cunningham MD at [facility] REMOVE LUMBAR SPINE LAMINA, 1 SEG N/A 09/18/2023 LAMINECTOMY FACETECTOMY AND FORAMINOTOMY LUMBAR performed by Igor Cunningham MD at OR [facility] Review of patient's allergies indicates: No Known Allergies Family History Problem Relation Age of Onset Cancer Father melanoma in 80's Breast Cancer Mother in 80's Cancer Uncle (Maternal) colon cancer Other (Other - twin with Parul) Daughter Family Status Relation Status Fa Mo Bro Alive MGMA MGFA PGMA PGFA Bro Alive MUNC Son Alive Kelsi Alive Kelsi Alive Social History Socioeconomic History Marital status: Spouse name: Not on file Number of children: Not on file Years of education: Not on file Highest education level: Not on file Occupational History Occupation: semi-retired Comment: transportation with [employer] Tobacco Use Smoking status: Never Smokeless tobacco: Never Vaping Use Vaping Use: Never used Substance and Sexual Activity Alcohol use: Not Currently Comment: none Drug use: No Comment: 1 cup coffee in am Sexual activity: Yes Partners: Female Comment: some problems Other Topics Concern Not on file Social History Narrative Saw Dr Diane 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 employer: [employer] education: college service: no hobbies/interests: Fishing, umpire baseball transfusions: No Tattoos- no exercise: Lifts weights 3 x per week, rides exercise bicycle diet: fiber scientologist/congregation: [employer] marital status: 09/04/77 children: 3 gc: 1 ggc: 0 pets: none exposure to violence/threats/abuse: no things to improve: Dropping a few pounds Social Determinants of Health Financial Resource Strain: Not on file Food Insecurity: Not on file Transportation Needs: Not on file Physical Activity: Not on file Stress: Not on file Social Connections: Not on file Intimate Partner Violence: Not on file Housing Stability: Not on file Review of Systems Constitutional: Negative for chills, diaphoresis, fatigue and fever. Respiratory: Negative for cough and shortness of breath. Cardiovascular: Negative for chest pain and palpitations. Gastrointestinal: Negative for diarrhea, nausea and vomiting. Genitourinary: Negative for dysuria, hematuria and urgency. Musculoskeletal: Negative for back pain and neck pain. Skin: Negative for rash. Neurological: Negative for dizziness. Hematological: Negative for adenopathy. Psychiatric/Behavioral: Negative for agitation and hallucinations. Objective BP 159/85 | Pulse 69 | Temp 36.1 C (96.9 F) (Tympanic) | Resp 18 | Wt 126.2 kg (278 lb 3.2 oz) | SpO2 96% | BMI 34.77 kg/m | BSA 2.58 m Physical Exam Constitutional: Appearance: Normal appearance. HENT: Head: Normocephalic and atraumatic. Right Ear: Tympanic membrane normal. Left Ear: Tympanic membrane normal. Nose: Nose normal. Mouth/Throat: Mouth: Mucous membranes are moist. Neck: Comments: Submental lympho node not palpable Cardiovascular: Rate and Rhythm: Normal rate and regular rhythm. Pulmonary: Effort: Pulmonary effort is normal. Breath sounds: Normal breath sounds. Abdominal: General: Abdomen is flat. Musculoskeletal: General: Normal range of motion. Comments: Very good ambulation Lymphadenopathy: Cervical: No cervical adenopathy. Skin: General: Skin is warm. Neurological: General: No focal deficit present. Mental Status: He is alert. Psychiatric: Mood and Affect: Mood normal. ASSESSMENT/PLAN: 1.DLBCL-Dyer's- NIKOLE, counts adequate 2. RTC in [place] to see me in 3 months with lab. There are no diagnoses linked to this encounter. Jn Fagan MD documented in this encounter Nursing Notes * Elena Hobbs MED ASSIST - 10/15/2023 10:58 AM EST Cancer Nutrition Screening Tool 1. Weight loss of 5 lb or more in the past month? Yes 2. Moderate to severe decrease in food intake in the past month? Yes 3. Trouble chewing or swallowing? No 4. Diagnosed with any of the following types of cancer? No Lung, Head and neck, Upper GI (including stomach and pancreas), Colorectal 5. Bone marrow transplant patient? No 6. Presence of feeding tube or scheduled to have one placed (NG, PEG, or jejunostomy)? No 7. Would this be the patients first visit with Dietitian? No Patient dose not wish to be referred to a dietitian at this time ES Pt was roomed in exam room #23 Patient was instructed to not get up on the exam table/exam chair until directed and assisted by their provider; patient is to remain seated in the chair/ wheelchair/ exam table/ exam chair for fall prevention and safety reasons. Patient is aware to have assistance to step down off exam table/exam chair with personnel. Patient voiced full comprehension of instructions. documented in this encounter Plan of Treatment Upcoming Encounters Date Type Department Care Team (Late st Contact Info) Description 10/29/2023 11:15 AM EST Pharmacy Pharmacy Hematology Oncology [facility] [address] [place] [address] [facility] [place] Hem/Onc [address] [place] [address] 11/21/2023 2:40 PM EDT Telemedicine Ortho Spine Surg T[facility]anda Garcia [address] [address] Igor Cunningham MD [address] [address] 01/02/2024 2:40 PM EDT Telemedicine Ortho Spine Surg Tawanda Garcia [address] [address] Igor Cunningham MD [address] [address] 03/03/2024 5:40 PM EDT Office Visit [facility] [address] [place] [address] Armando Hayward MD [address] [place] [address] Scheduled Procedures Name Priority Associated Diagnoses Date/Ti me COLONOSCOPY FLEXIBLE PROXIMAL DIAGNOSTIC Recall History of colon polyps Health Maintenance Due Date Last Done Comments Hepatitis B (1 of 3 - Risk 3-dose series) 2015 Zoster Vaccines (2 of 2) 10/05/2022 08/10/2022 Pneumococcal Vaccine: 65+ Years (2 - PCV) 12/14/2022 12/14/2021 COVID-19 Vaccine (4 [...] B-cell lymphoma, unspecified body region (HCC)- Primary CLL (chronic lymphocytic leukemia) (HCC) Chronic lymphoid leukemia, without mention of having achieved remission Dyer's syndrome (HCC) Chronic lymphoid leukemia, without [...] the patient have Health Care Power of Advertising Operations Manager? No Full Code 05/22/2019 10:49 PM 05/24/2019 4:13 PM This order reflects the patients wishes and were consensually agreed upon. Question Answer Comments Discussion of Advance Directives occurred with: Patient Does the patient have a Living Will? No Does the patient have Health Care Power of Advertising Operations Manager? No Full Code 04/17/2019 3:28 PM 04/22/2019 3:08 AM This o rder reflects the patients wishes and were consensually agreed upon. Question Answer Comments Discussion of Advance Directives occurred with: Patient/Family Care Teams Cold Header Operator Relationship Specialty Start Date End Date Armando Hayward MD [address] [place] [address] PCP - General Family Medicine 09/29/18 documented as of this encounter"
--- OUTSIDE RECORDS SUMMARY | 2024-03-21 02:07 | External Medical Summary ---
Author Name Unknown Address Unknown Organization K01:[facility] - [address] [place] [address] Laboratory Report Ordering Provider Test Date Status ANGELINA IBARRA 11/08/2023 12:37:57 Final Observation Date Value Abnormality Reference (Units ) Status LDH 11/08/2023 12:37:57 159 <=250 (U/L ) Final Performing Location [facility] - [address] [place] [address]
--- OUTSIDE RECORDS SUMMARY | 2024-03-21 02:07 | External Medical Summary ---
Author Name Unknown Address Unknown Organization K0G:[facility] [address] [place] [address] Laboratory Report Ordering Provider Test Date Status ANGELINA IBARRA 11/08/2023 12:37:57 Final Observation Date Value Abnormality Reference (Units ) Status SYNC LEUKOCYTES IN BLOOD BY AUTOMATED COUNT 11/08/2023 12:37:57 7.95 4.00-10.80 (K/uL) Final Segs 11/08/2023 12:37:57 46.5 40.0-75.0 (%) Final Lymphs % 11/08/2023 12:37:57 42.5 Above high normal 18.0-42.0 (%) Final Monos 11/08/2023 12:37:57 8.6 1.0-11.0 (%) Final Eosinophils 11/08/2023 12:37:57 1.9 0.0-6.0 (%) Final Basos 11/08/2023 12:37:57 0.5 0.0-2.0 (%) Final Absolute Segs 11/08/2023 12:37:57 3.70 1.80-7.70 (K/uL) Final Lymphs, absolute 11/08/2023 12:37:57 3.38 1.00-4.80 (K/ul) Final Monos, Abs 11/08/2023 12:37:57 0.68 0.00-1.10 (K/uL) Final Eos, Abs 11/08/2023 12:37:57 0.15 0.00-0.70 (K/uL) Final Basos, Abs 11/08/2023 12:37:57 0.04 0.00-0.20 (K/uL) Final Performing Location [facility] [address] [place] [address]
--- OUTSIDE RECORDS SUMMARY | 2024-03-21 02:07 | External Medical Summary | Summary of Care ---
Author Name Unknown Organization [facility] Address [address] [place] [address] Phone [phone] Care Team Providers Care Health Careers Instructor Name Role Phone Armando Hayward MD Primary Care Provider +1- [phone] Encounter Details Date Type Department Care Team (Late st Contact Info) Description 11/21/2023 3:00 PM EDT Telemedicine Ortho Spine Surg Tawanda Garcia [address] [address] Igor Hernandez MD [address] [address] Neurogenic claudication due to lumbar spinal stenosis* Allergies No known active allergiesdocumented as of this encounter (statuses as of 11/21/2023) Medications Medication Sig Dispensed Refills Start Date [...] as of this encounter (statuses as of 11/21/2023) Active Problems Problem Noted Date Diagnosed Date [...] as of this encounter (statuses as of 11/21/2023) Resolved Problems Problem Noted Date Diagnosed Date [...] as of this encounter (statuses as of 11/21/2023) Immunizations Name Administration Dates Next Due COVID-19 mRNA, LNP-s, No Pre serve, 2-Dose Series ([employer]) 08/08/2021,12/07/2020,11/16/2020 Pneumococcal Polysaccharide PPV23 (Pneumovax) 12/14/2021 Seasonal [...] as of this encounter Progress Notes * Igor Hernandez MD - 11/21/2023 2:54 PM EDT IGOR HERNANDEZ MD ORTHOPAEDIC SURGERY - SPINE [facility] - [place] ---- TELEHEALTH ATTESTATION This clinical encounter was completed utilizing remote or virtual means. Documentation to satisfy this orthopaedic encounter is described below. After connecting through tele-audio, the patient was verified with two unique identifiers. The patient (or authorized legal mechanical service representative) was then informed that this was a telephone call visit onlyand that it was being conducted confidentially. My office door was closed. No one else was in the room with me. No one else was in the room with me. The patient acknowledged consent and understandingof privacy and security of the telemedicine visit. If necessary, the patient gave permission to have a telemedicine presenter stay in the room in order to assist with the history and to conduct the exam as needed. I informed the patient that I have reviewed their record in [facility] and presented the opp ortunity for them to ask any questions regarding the visit today. The patient agreed to participate. The visit disposition is: Routine follow-up. The total call duration was 5 minutes. Patient location: HOME. I was in a hospital or clinic location. After connecting through televideo, patient was verified with two unique identifiers. Patient (or authorized legal mechanical service representative) wasthen informed that this was a Telemedicine visit and being conducted confidentially over secure lines. Methods to assure confidentiality were taken. Patient acknowledged consent and understanding of privacy and security of the Telemedicine visit. The patient agreed to participate. ----- DATE: 11/21/2023 NAME: Forrest Martinez Primary Care Physician: Armando Hayward MD Referring Physician: Armando Hayward MD RETURN VISIT . INTERVAL HISTORY: The patient continues to do well. He has essentially no pain. He is some stiffness in the morning. PAST MEDICAL HISTORY: Past Medical History: Diagnosis Date Arthritis Dyslipidemia, goal LDL below 100 HTN, goal below 140/90 Hypertensive retinopathy Lumbar radiculopathy Non Hodgkin's lymphoma (HCC) Prostate cancer (HCC) Spinal stenosis of lumbar region without neurogenic claudication PAST SURGICAL HISTORY: Past Surgical History: Procedure Laterality Date BX LYMPH NODE-DEEP CERV Right 04/03/2019 BIOPSY LYMPH NODE DEEP CERVICAL performed by Emily Marie MD at OR [facility] COLONOSCOPY, DIAGNOSTIC (RECTUM) 08/21/2016 adenomatous polyp, diverticulosis, repeat 5 yrs/COLONOSCOPY FLEXIBLE PROXIMAL DIAGNOSTIC performed by Rod Nobles MD at ENDOSCOPY [facility] COLONOSCOPY, DIAGNOSTIC (RECTUM) 04/24/2022 external hemorrhoids, multi polyps in transverse, internal hemorrhoids / biopsies benign adenomatous polyps / 5 year recall / COLONOSCOPY FLEXIBLE PROXIMAL DIAGNOSTIC performed by Kim Pulliam ENDOSCOPY [facility] COLORECTAL CANCER SCREEN; NOT AT RISK 02/27/2011 normal with fair prep, repeat in 5 years DENTAL SURGERY PROCEDURE NEC IR VENOUS ACCESS MEDIPORT 06/23/2021 REMOVE ADDED SPINE LAMINA, 1 SEG N/A 09/18/2023 LAMINECTOMY FACETECTOMY AND FORAMINOTOMY ADDITIONAL LEVELS performed by Igor Hernandez MD at [facility] REMOVE LUMBAR SPINE LAMINA, 1 SEG N/A 09/18/2023 LAMINECTOMY FACETECTOMY AND FORAMINOTOMY LUMBAR performed by Igor Hernandez MD at [facility] SOCIAL & EMPLOYMENT HISTORY: Occupation: Tobacco use: Social History Tobacco Use Smoking Status Never Smokeless Tobacco Never Alcohol use: Social History Substance and Sexual Activity Alcohol Use Not Currently Comment: none Other substance use: Denies FAMILY HISTORY: Family History Problem Relation Age of Onset Cancer Father melanoma in 80's Breast Cancer Mother in 80's Cancer Uncle (Maternal) colon cancer Other (Other - twin with Parul) Daughter MEDICATIONS: Current Outpatient Medications Medication Sig Dispense Refill MULTIVITAMINS PO CAPS one each day OMEGA-3 FISH OIL 1000 MG PO CAPS Take one capsule by mouth twice a day 60 Cap 5 COENZYME Q10 400 MG PO CAPS 1 CAPSULE DAILY 1 Cap 0 Gabapentin 300 MG Oral Capsule (Neurontin) Take 1 Capsule by mouth at bedtime. 30 Capsule 0 Ibrutinib 420 MG Oral Tablet Take 1 Tablet by mouth daily. Ibrutinib 420 MG Oral Tablet Take 1 tablet by mouth daily. 30 Tablet 5 Pravastatin Sodium 80 MG Oral Tablet take 1 tablet by mouth at bedtime 90 Tablet 1 Losartan Potassium 100 MG Oral Tablet (Cozaar) take 1 tablet by mouth daily 90 Tablet 3 No current facility-administered medications for this visit. ALLERGIES: Review of patient's allergies indicates: No Known Allergies PHYSICAL EXAM: Estimated body mass index is 34.77 kg/m as calculated from the following: Height as of 10/15/23: 1.905 m (6' 3"). Weight as of 10/15/23: 126.2 kg (278 lb 3.2 oz). Further physical examination could not be completed due to the telephonic nature of this encounter. IMAGING: I have personally reviewed the imaging. No new imaging today ASSESSMENT AND PLAN: Status post lumbar decompression, doing very well. He may continue to progress with his activities as tolerated. I will see him back as scheduled All of the patients questions were answered. The patient expressed understanding with the information discussed in todays visit. The patient agrees to proceed with the aforementioned treatment plan. The patient has been directed to create a [employer] account so that he may review the entire content of our visit today. This chart was completed in part utilizing [employer] Voice Recognition Software. Grammatical errors, random word insertions, pronoun errors, and incomplete sentences are an occasional consequence of this system due to software limitations, ambient noise, and hardware issues. Any formal questions or concerns about the content, text, or information contained within the body of this dictation should be directly addressed to the provider for clarification. documented in this encounter Plan of Treatment Upcoming Encounters Date Type Department Care Team (Late st Contact Info) Description 11/26/2023 11:15 AM EDT Pharmacy Pharmacy Hematology Oncology [facility] [address] [place] [address] [facility] Hem/Onc [address] [place] [address] 01/14/2024 3:20 PM EDT Telemedicine Ortho Spine Surg Tawanda Garcia [address] [address] Igor Hernandez MD [address] [address] 03/03/2024 5:40 PM EDT Office Visit [facility] [address] [place] [id number] Armando Hayward MD [address] [place] [address] Scheduled Procedures Name Priority Associated Diagnoses Date/Ti me COLONOSCOPY FLEXIBLE PROXIMAL DIAGNOSTIC Recall History of colon polyps Health Maintenance Due Date Last Done Comments Zoster Vaccines (2 of 2) 10/05/2022 08/10/2022 Pneumococcal Vaccine: 65+ Years (2 of 2 - PCV) 12/14/2022 12/14/2021 COVID-19 Vaccine (2022-24 season) 2023 08/08/2021, 12/07/2020, 11/16/2020 Influenza Vaccine [...] as of this encounter Visit Diagnoses Diagnosis Neurogenic claudication due to lumbar spinal stenosis- Primary Spinal stenosis, lumbar region, with neurogenic claudication documented in this encounter Advance Directives Latest [...] the patient have Health Care Power of Tool Repair Technician? No Full Code 05/22/2019 10:49 PM 05/24/2019 4:13 PM This order reflects the patients wishes and were consensually agreed upon. Question Answer Comments Discussion of Advance Directives occurred with: Patient Does the patient have a Living Will? No Does the patient have Health Care Power of Tool Repair Technician? No Full Code 04/17/2019 3:28 PM 04/22/2019 3:08 AM This o rder reflects the patients wishes and were consensually agreed upon. Question Answer Comments Discussion of Advance Directives occurred with: Patient/Family Care Teams Health Careers Instructor Relationship Specialty Start Date End Date Armando Hayward MD [address] [facility] [place] [place] [address] PCP - General Family Medicine 09/29/18 documented as of this encounter
--- OUTSIDE RECORDS SUMMARY | 2024-03-21 02:07 | External Medical Summary ---
Author Name Unknown Address Unknown Organization K0G:[facility] [address] [place] [id number] Laboratory Report Ordering Provider Test Date Status ANGELINA IBARRA 11/08/2023 12:37:57 Final Observation Date Value Abnormality Reference (Units ) Status WBC, Total 11/08/2023 12:37:57 7.95 4.00-10.8 0 (K/uL) Final RBC 11/08/2023 12:37:57 4.60 4.50-5.25 (M/uL) Final Hemoglobin 11/08/2023 12:37:57 13.1 Below low normal 14 .0-16.8 (g/dL) Final HCT 11/08/2023 12:37:57 39.3 Below low normal 40. 0-48.4 (%) Final MCV 11/08/2023 12:37:57 85.4 82.0-99.5 (fL) Final MCH 11/08/2023 12:37:57 28.5 27.0-34.0 (pg) Final MCHC 11/08/2023 12:37:57 33.3 32.0-36.0 (g/dL) Final RDW 11/08/2023 12:37:57 13.7 11.5-15.5 (%) Final Platelets 11/08/2023 12:37:57 138 Below low normal 140 -400 (K/uL) Final MPV 11/08/2023 12:37:57 9.7 6.6-11.1 ( fL) Final Performing Location [facility] [address] [place] [id number]
--- OUTSIDE RECORDS SUMMARY | 2024-03-21 02:07 | External Medical Summary ---
Author Name Unknown Address Unknown Organization K0G:[facility] [address] [place] [id number] Laboratory Report Ordering Provider Test Date Status ANGELINA IBARRA 11/08/2023 12:37:57 Final Observation Date Value Abnormality Reference (Units ) Status BUN 11/08/2023 12:37:57 16 6-20 (mg/dL) Final Creatinine 11/08/2023 12:37:57 1.1 0.6-1.2 (mg/dL) Final Glomerular filtration rate/1.73 sq M.predicted [Volume Rate/Area] in Serum, Plasma or Blood by Creatinine-based formula (CKD-EPI) 11/08/2023 12:37:57 76 >=60 (mL/min) Final eGFR is calculated based on the CKD-EPI 2020 equation SODIUM 11/08/2023 12:37:57 138 135-146 (m mol/L) Final Potassium 11/08/2023 12:37:57 4.2 3.5-5.1 (m mol/L) Final Cl 11/08/2023 12:37:57 100 98-107 (mm ol/L) Final CO2 11/08/2023 12:37:57 27 22-32 (mmo l/L) Final Anion gap 11/08/2023 12:37:57 11 7-15 (mmol /L) Final Glucose 11/08/2023 12:37:57 126 Above high normal 70 -120 (mg/dL) Final Albumin 11/08/2023 12:37:57 4.3 3.8-5.0 (g /dL) Final AST (Aspartate aminotransferase) 11/08/2023 12:37:57 17 10-50 (U/L) Fin al Alk Phos 11/08/2023 12:37:57 111 35-130 (U/ L) Final Bilirubin, Total 11/08/2023 12:37:57 1.3 Above high no rmal <=1.2 (mg/dL) Final Calcium 11/08/2023 12:37:57 9.4 8.4-10.2 ( mg/dL) Final Protein 11/08/2023 12:37:57 6.7 6.0-8.3 (g /dL) Final ALT (Alanine aminotransferase) 11/08/2023 12:37:57 22 10-50 (U/L) Cornelius stanton Performing Location [facility] [address] [facility] [address]
--- OUTSIDE RECORDS SUMMARY | 2024-03-21 02:07 | External Medical Summary | Summary of Care ---
Author Name Unknown Organization [facility] Address [address] [place] [address] Phone [phone] Care Team Providers Care Comfort Station Supervisor Name Role Phone Armando Nolasco MD Primary Care Provider +1- [phone] Reason for Visit * Reason Comments eRx-Medication Refill Encounter Details Date Type Department Care Team (Late st Contact Info) Description 10/15/2023 Refill [facility] [address] [place] [address] Armando Nolasco MD [address] [place] [address] Dyslipidemia, goal LDL below 100; Essential hypertension with goal blood pressure less than 140/90 Allergies No known active allergiesdocumented as of [...] 0 09/19/2023 Active Ibrutinib 420 MG Oral TabletIndications: Diffuse [...] mouth daily 90 Tablet 3 10/15/2023 Active Losartan Potassium 100 MG Oral Tablet (Cozaar)Indication s:Essential hypertension with goal blood pressure less than 140/90 take 1 tablet by mouth daily 90 Tablet 0 07/25/2023 4 Discontinued Pravastatin Sodium 80 MG Oral TabletIndications: Dyslipidemia, goal LDL below 100 take 1 tablet by mouth at bedtime 90 Tablet 0 07/25/2023 4 Discontinued documented as of this encounter (statuses as [...] encounter Miscellaneous Notes * Telephone Encounter - Rodger Banda [facility] - 10/15/2023 5:19 PM ESTSigned Prescriptions: Disp Refills Pravastatin Sodium 80 MG Oral Tablet 90 Tab*1 Sig: take 1 tabletby mouth at bedtimeAuthorizing Provider: ARMANDO NOLASCO User: RODGER BANDA Losartan Potassium 100 MG Oral Tablet (Coz*90 Tab*3 Sig: take 1 tablet by mouth dailyAuthorizing Provider: ARMANDO NOLASCO User: RODGER BANDA documented in this encounter Plan of Treatment Upcoming Encounters Date Type Department Care Team (Late st Contact Info) Description 10/29/2023 11:15 AM EST Pharmacy Pharmacy Hematology Oncology [facility] [address] [place] [address] [facility] Hem/Onc [address] [place] [address] 11/21/2023 2:40 PM EDT Telemedicine Ortho Spine Surg Tawanda Garcia [address] [address] Igor Cunningham MD [address] [address] 01/09/2024 2:40 PM EDT Telemedicine Ortho Spine Surg Tawanda Garcia [address] [address] Igor Cunningham MD [address] [address] 03/03/2024 5:40 PM EDT Office Visit [address] [place] [address] Armando Nolasco MD [address] [place] [id number] Scheduled Procedures Name Priority Associated Diagnoses Date/Ti me COLONOSCOPY FLEXIBLE PROXIMAL DIAGNOSTIC Recall History of colon polyps Health Maintenance Due Date Last Done Comments Hepatitis B (1 of 3 - Risk 3-dose series) 2015 Zoster Vaccines (2 of 2) 10/05/2022 08/10/2022 Pneumococcal Vaccine: 65+ Years (2 - PCV) 12/14/2022 12/14/2021 COVID-19 Vaccine (4 - 2022-24 season) 2023 08/08/2021, 12/07/2020, 11/16/2020 Influenza Vaccine [...] as of this encounter Visit Diagnoses Diagnosis Dyslipidemia, goal LDL below 100 Other and unspecified hyperlipidemia Essential hypertension with goal blood pressure less than 140/90 documented in this encounter Advance Directives Latest [...] the patient have Health Care Power of Hydrometer Calibrator? No Full Code 05/22/2019 10:49 PM 05/24/2019 4:13 PM This order reflects the patients wishes and were consensually agreed upon. Question Answer Comments Discussion of Advance Directives occurred with: Patient Does the patient have a Living Will? No Does the patient have Health Care Power of Hydrometer Calibrator? No Full Code 04/17/2019 3:28 PM 04/22/2019 3:08 AM This o rder reflects the patients wishes and were consensually agreed upon. Question Answer Comments Discussion of Advance Directives occurred with: Patient/Family Care Teams Comfort Station Supervisor Relationship Specialty Start Date End Date Armanod Nolasco MD [address] [facility] [place] [address] PCP - General Family Medicine 09/29/18 documented as of this encounter
--- OUTSIDE RECORDS SUMMARY | 2024-03-21 02:07 | External Medical Summary | Summary of Care ---
Author Name Unknown Organization [facility] Address [address] [place] [address] Phone [phone] Care Team Providers Care Dimensional Integration Engineer Name Role Phone Armando Hayward MD Primary Care Provider +1- [phone] Reason for Visit * Reason Comments Outpatient Testing Encounter Details Date Type Department Care Team (Late st Contact Info) Description 11/08/2023 11:20 AM EST Laboratory Laboratory, [facility] [address] [place] [phone] [facility] [address] [place] [address] Diffuse large B cell lymphoma (HCC) Allergies No known active allergiesdocumented as of this encounter (statuses as of 11/08/2023) Medications Medication Sig Dispensed Refills Start Date End Date Status MULTIVITAMINS PO CAPSIndications:Jamhsid zhang medical exam one each day 0 [...] as of this encounter (statuses as of 11/08/2023) Active Problems Problem Noted Date Diagnosed Date [...] as of this encounter (statuses as of 11/08/2023) Resolved Problems Problem Noted Date Diagnosed Date [...] as of this encounter (statuses as of 11/08/2023) Immunizations Name Administration Dates Next Due COVID-19 mRNA, LNP-s, No Pre serve, 2-Dose Series ([facility]) 08/08/2021,12/07/2020,11/16/2020 Pneumococcal Polysaccharide PPV23 (Pneumovax) 12/14/2021 Seasonal [...] Spine Surg Tawanda Garcia [address] [address] Igor Cunningham MD [address] [address] 11/26/2023 11:15 AM EDT Pharmacy Pharmacy Hematology Oncology [facility] [address] [place] [address] [facility] Hem/Onc [address] [place] [address] 01/09/2024 2:40 PM EDT Telemedicine Ortho Spine Surg Tawanda Garcia [address] [address] Igor Cunningham MD [address] [address] 03/03/2024 5:40 PM EDT Office Visit [facility] [address] [place] [address] Armando Hayward MD [address] [place] [address] Pending Results Name Type Priority Associated Diagnoses Date /Time COMPREHENSIVE METABOLIC PANEL Lab STAT Diffuse large B cell lymphoma (HCC) 11/08/2023 12:37 PM EST LD Lab STAT Diffuse large B cell lymphoma (HCC) 11/08/2023 12:37 PM EST Scheduled Procedures Name Priority Associated Diagnoses Date/Ti [...] Priority Date/Time Associated Diagnosis Comments DIFFERENTIAL, AUTOMATED STAT 11/08/2023 12:37 PM EST Diffuse large B cell lymphoma (HCC) CBC STAT 11/08/2023 12:37 PM EST Diffuse large B cell lymphoma (HCC) CBC STAT 11/08/2023 12:37 PM EST Diffuse large B cell lymphoma (HCC) documented in this encounter Results * (ABNORMAL) DIFFERENTIAL, AUTOMATED (11/08/2023 12:37 PM EST) WBC 7.95 4.00 - 10.80 K/uL 11/08/2023 12:46 PM EST [facility] [address] Neutrophils % 46.5 40.0 - 75.0 % 11/08/2023 12:46 PM EST [facility] [place] [address] Lymphocytes % 42.5(H) 18.0 - 42.0 % 11/08/2023 12:46 PM EST [facility] [place] [address] Monocytes % 8.6 1.0 - 11.0 % 11/08/2023 12:46 PM EST [facility] [place] [address] Eosinophils % 1.9 0.0 - 6.0 % 11/08/2023 12:46 PM EST [facility] [place] [address] Basophils % 0.5 0.0 - 2.0 % 11/08/2023 12:46 PM EST [facility] [place] [address] Absolute Neutrophils 3.70 1.80 - 7.70 K/uL 11/08/2023 12:46 PM EST [facility] [place] [address] Absolute Lymphocytes 3.38 1.00 - 4.80 K/ul 11/08/2023 12:46 PM EST [facility] [place] [address] Absolute Monocytes 0.68 0.00 - 1.10 K/uL 11/08/2023 12:46 PM EST [facility] [place] [address] Absolute Eosinophils 0.15 0.00 - 0.70 K/uL 11/08/2023 12:46 PM EST [facility] [place] [address] Absolute Basophils 0.04 0.00 - 0.20 K/uL 11/08/2023 12:46 PM EST [facility] [address] Blood Venous blood specimen / Unknown Venipuncture / Unknown 11/08/2023 12:37 PM EST 11/08/2023 12:37 PM EST Jn Fagan MD LAB BLOOD [facility] [address] [place] [id number] * (ABNORMAL) CBC (11/08/2023 12:37 PM EST) WBC 7.95 4.00 - 10.80 K/uL 11/08/2023 12:46 PM EST [facility] [place] [address] RBC 4.60 4.50 - 5.25 M/uL 11/08/2023 12:46 PM EST [facility] [place] [address] HGB 13.1(L) 14.0 - 16.8 g/dL 11/08/2023 12:46 PM EST [facility] [place] [address] HCT 39.3(L) 40.0 - 48.4 % 11/08/2023 12:46 PM EST [facility] [place] [address] MCV 85.4 82.0 - 99.5 fL 11/08/2023 12:46 PM EST [facility] [place] [address] MCH 28.5 27.0 - 34.0 pg 11/08/2023 12:46 PM EST [facility] [place] [address] MCHC 33.3 32.0 - 36.0 g/dL 11/08/2023 12:46 PM EST [facility] [place] [address] RDW 13.7 11.5 - 15.5 % 11/08/2023 12:46 PM EST [facility] [place] [address] PLT 138(L) 140 - 400 K/uL 11/08/2023 12:46 PM EST [facility] [place] [address] MPV 9.7 6.6 - 11.1 fL 11/08/2023 12:46 PM EST [facility] [place] [address] Blood Venous blood specimen / Unknown Venipuncture / Unknown 11/08/2023 12:37 PM EST 11/08/2023 12:37 PM EST Jn Fagan MD LAB BLOOD ORDERA BLES [facility] [address] [place] [address] documented in this encounter Visit Diagnoses Diagnosis Diffuse large B cell lymphoma (HCC) Other malignant lymphomas, unspecified site, extranodal and solid organ sites documented in this encounter Advance Directives Latest [...] the patient have Health Care Power of Supervisor Of Research? No Full Code 05/22/2019 10:49 PM 05/24/2019 4:13 PM This order reflects the patients wishes and were consensually agreed upon. Question Answer Comments Discussion of Advance Directives occurred with: Patient Does the patient have a Living Will? No Does the patient have Health Care Power of Supervisor Of Research? No Full Code 04/17/2019 3:28 PM 04/22/2019 3:08 AM This o rder reflects the patients wishes and were consensually agreed upon. Question Answer Comments Discussion of Advance Directives occurred with: Patient/Family Care Teams Dimensional Integration Engineer Relationship Specialty Start Date End Date Armando Hayward MD [address] [place] [address] PCP - General Family Medicine 09/29/18 documented as of this encounter
--- OUTSIDE RECORDS SUMMARY | 2024-03-21 02:08 | External Medical Summary | Summary of Care ---
Author Name Unknown Organization [facility] Address [address] [place] [address] Phone [phone] Care Team Providers [facility] Office Supervisor Name Role Phone Armando Hayward MD Primary Care Provider +1- [phone] Encounter Details Date Type Department Care Team ([facility] st Contact Info) Description 10/14/2023 Specialty Pharmacy [facility], [address] [place] [address] Refill, [address] [address] Allergies No known active allergiesdocumented as of this encounter (statuses as of 10/14/2023) Medications Medication Sig Dispensed Refills Start Date End Date Status MULTIVITAMINS PO CAPSIndications:Rout ine medical exam one each day 0 06/04/2012 Active OMEGA-3 FISH OIL 1000 MG PO CAPSIndications:Dysl ipidemia, goal LDL below 100 Take one capsule by mouth twice a day 60 Cap 5 09/21/2013 Active COENZYME Q10 400 MG PO CAPSIndications:Dysl ipidemia, goal LDL below 100 1 CAPSULE DAILY 1 Cap 0 09/21/2013 Active Losartan Potassium 100 MG Oral Tablet (Cozaar)Indications: Essential hypertension with goal blood pressure less than 140/90 take 1 tablet by mouth daily 90 Tablet 0 07/25/2023 Active Pravastatin Sodium 80 MG Oral TabletIndications:Dy slipidemia, goal LDL below 100 take 1 tablet by mouth at bedtime 90 Tablet 0 07/25/2023 Active Mupirocin 2 % External Ointment (Bactroban) Apply topically to affected area 2 times a day. Apply to nares 22 g 0 09/03/2023 Active oxyCODONE HCl 5 MG Oral Tablet (Oxy IR)Indications:Neuro genic claudication due to lumbar spinal stenosis Take 1 Tablet by mouth every 6 hours as needed for Pain, Moderate. 20 Tablet 0 09/19/2023 Active diazePAM 5 MG Oral Tablet (Valium)Indications: Neurogenic claudication due to lumbar spinal stenosis Take 1 Tablet by mouth every 8 hours as needed for Muscle spasms. 20 Tablet 0 09/19/2023 Active Gabapentin 300 MG Oral Capsule (Neurontin) Take 1 Capsule by mouth at bedtime. 30 Capsule 0 09/19/2023 Active Ibrutinib 420 MG Oral TabletIndications:Di ffuse large B-cell lymphoma, unspecified body region (HCC) Take 1 Tablet by mouth daily. Do not start before September 30, 2023. 0 09/30/2023 Active Bisacodyl 5 MG Oral Tablet Delayed Release (Dulcolax)Indication s:Neurogenic claudication due to lumbar spinal stenosis Take 1 Tablet by mouth daily as needed for Constipation. Do not start before September 20, 2023. 30 Tablet 0 09/20/2023 Active Ibrutinib 420 MG Oral TabletIndications:Di ffuse large B-cell lymphoma, unspecified body region (HCC) Take 1 tablet by mouth daily. 30 Tablet 5 10/09/2023 Active documented as of this encounter (statuses as of 10/14/2023) Active Problems Problem Noted Date Diagnosed Date [...] as of this encounter (statuses as of 10/14/2023) Resolved Problems Problem Noted Date Diagnosed Date [...] as of this encounter (statuses as of 10/14/2023) Immunizations Name Administration Dates Next Due COVID-19 mRNA, LNP-s, No Pre serve, 2-Dose Series (ViViFi) 08/08/2021,12/07/2020,11/16/2020 Pneumococcal Polysaccharide PPV23 (Pneumovax) 12/14/2021 Seasonal [...] as of this encounter Progress Notes * Karolina Naik CPhT - 10/14/2023 4:08 PM EST Prescribed medication: Medication: imbruvica [facility] Shipment date: 10/22 Delivery method: Specialty Mail Location Medication Delivered too? [facility] [place] [address] Karolina Naik CPhT [facility] 10/14/2023,4:08 PM documented in this encounter Plan of Treatment Upcoming Encounters Date Type Department Care Team (Late st Contact Info) Description 10/15/2023 8:40 AM EST Office Visit Ortho Spine Surg [place] Gar[place] [address] [address] Igor Cunningham MD [address] [address] 10/15/2023 10:30 AM EST Laboratory [facility] [address] [facility] [place] [address] [facility], Lab Cancer [place] [address] [place] [address] 10/15/2023 11:00 AM EST Office Visit Hematology [facility]ia Lockhart [address] [place] [address] Jn Fagan MD [address] [place], [place] [id number] 10/29/2023 11:15 AM EST Pharmacy Pharmacy Hematology Oncology [facility] [address] [facility] [place] [address] [facility], [facility] Hem/Onc [address] [place] [address] 11/21/2023 2:40 PM EDT Telemedicine Ortho Spine Surg [address], [place] [address] [place] [address] Igor Cunningham MD [address] [place] [address] 01/02/2024 2:40 PM EDT Office Visit Ortho Spine Surg [address], [place] [address] [place] [address] Igor Cunningham MD [address] [place] [address] 03/03/2024 5:40 PM EDT Office Visit [facility] [address] [place] [address] Armando Hayward MD [address] [place] [address] Scheduled Procedures Name Priority Associated [...] Depression Screening 08/26/2024 08/26/2023, 04/11/20 15 GFR 09/19/2024 09/19/2023, 01/0 02/2024, 08/10/2023, Additional history exists Albumin/Creatinine Ratio 10/10/2025 10/10/2022 Diabetes Screening 09/19/2026 09/19/2023, 0 09/18/2023, 09/18/2023, Additional history exists COLONOSCOPY-EVERY 5 YRS [...] the patient have Health Care Power of [employer] Vendor? No Full Code 05/22/2019 10:49 PM 05/24/2019 4:13 PM This order reflects the patients wishes and were consensually agreed upon. Question Answer Comments Discussion of Advance Directives occurred with: Patient Does the patient have a Living Will? No Does the patient have Health Care Power of [employer] Vendor? No Full Code 04/17/2019 3:28 PM 04/22/2019 3:08 AM This o rder reflects the patients wishes and were consensually agreed upon. Question Answer Comments Discussion of Advance Directives occurred with: Patient/Family Care Teams [facility] Office Supervisor Relationship Specialty Start Date End Date Armando Hayward MD [address] [address] PCP - General Family Medicine 09/29/18 documented as of this encounter
--- OUTSIDE RECORDS SUMMARY | 2024-03-21 02:08 | External Medical Summary ---
Author Name Unknown Address Unknown Organization [facility] - [address] [place] [address] Laboratory Report Ordering Provider Test Date Status ANGELINA IBARRA 10/15/2023 10:13:10 Final Observation Date Value Abnormality Reference (Units ) Status SYNC LEUKOCYTES IN BLOOD BY AUTOMATED COUNT 10/15/2023 10:13:10 9.45 4.00-10.80 (K/uL) Final Segs 10/15/2023 10:13:10 43.0 40.0-75.0 (%) Final Lymphs % 10/15/2023 10:13:10 45.5 Above high normal 18.0-42.0 (%) Final Monos 10/15/2023 10:13:10 7.1 1.0-11.0 (%) Final Eosinophils 10/15/2023 10:13:10 1.8 0.0-6.0 (%) Final Basos 10/15/2023 10:13:10 0.8 0.0-2.0 (%) Final Immature Granulocyte, Percent 10/15/2023 10:13:10 1.8 0.0-2.0 (%) Final Absolute Segs 10/15/2023 10:13:10 4.06 1.80-7.70 (K/uL) Final Lymphs, absolute 10/15/2023 10:13:10 4.30 1.00-4.80 (K/ul) Final Monos, Abs 10/15/2023 10:13:10 0.67 0.00-1.10 (K/uL) Final Eos, Abs 10/15/2023 10:13:10 0.17 0.00-0.70 (K/uL) Final Basos, Abs 10/15/2023 10:13:10 0.08 0.00-0.20 (K/uL) Final Immature Granulocytes, Number 10/15/2023 10:13:10 0.17 0.00-0.20 (K/uL) Final Performing Location [facility] - [address] [place] [address]
--- OUTSIDE RECORDS SUMMARY | 2024-03-21 02:08 | External Medical Summary ---
Author Name Unknown Address Unknown Organization [facility] [address] [place] [address] Laboratory Report Ordering Provider Test Date Status ANGELINA IBARRA 10/15/2023 10:13:10 Final Observation Date Value Abnormality Reference (Units ) Status WBC, Total 10/15/2023 10:13:10 9.45 4.00-10.80 (K/uL) Final RBC 10/15/2023 10:13:10 4.43 4.50-5.25 (M/uL) Final Hemoglobin 10/15/2023 10:13:10 12.6 Below low normal 14.0-16.8 (g/dL) Final HCT 10/15/2023 10:13:10 39.4 Below low normal 40.0-48.4 (%) Final MCV 10/15/2023 10:13:10 88.9 82.0-99.5 (fL) Final MCH 10/15/2023 10:13:10 28.4 27.0-34.0 (pg) Final MCHC 10/15/2023 10:13:10 32.0 32.0-36.0 (g/dL) Final RDW 10/15/2023 10:13:10 13.0 11.5-15.5 (%) Final Platelets 10/15/2023 10:13:10 166 140-400 (K/uL) Final MPV 10/15/2023 10:13:10 9.0 6.6-11.1 (fL) Final Nucleated erythrocytes/100 leukocytes [Ratio] in Blood by Automated count 10/15/2023 10:13:10 0 <=0 (/100 WBCs) Final Performing Location LABORATORY [address] [place] [address]
--- OUTSIDE RECORDS SUMMARY | 2024-03-21 02:08 | External Medical Summary ---
Author Name Unknown Address Unknown Organization [facility] [address] [place] [address] Laboratory Report Ordering Provider Test Date Status ANGELINA IBARRA 10/15/2023 10:13:10 Final Observation Date Value Abnormality Reference (Units ) Status LDH 10/15/2023 10:13:10 165 <=250 (U/L ) Final Performing Location LABORATORY [address] [place] [address]
--- OUTSIDE RECORDS SUMMARY | 2024-03-21 02:08 | External Medical Summary | Summary of Care ---
Author Name Unknown Organization [facility] Address [address] [place] [address] Phone [phone] Care Team Providers Care [employer] Mortising Machine Operator Name Role Phone Armando Hayward MD Primary Care Provider +1- [phone] Encounter Details Date Type Department Care Team (Late st Contact Info) Description 10/14/2023 Orders Only Outcomes Research Department [address], [place] [id number] Lashell Garcia CHRA [facility] Other*[id number] Allergies No known active allergiesdocumented as of this encounter (statuses as of 10/14/2023) Medications Medication Sig Dispensed Refills Start Date End Date Status MULTIVITAMINS PO CAPSIndications:[facility] medical exam one each day 0 06/04/2012 [...] AM EST Office Visit Ortho Spine Surg [place] [address] [address] Igor Cunningham MD [address] [address] 10/15/2023 10:30 AM EST Laboratory Laboratory Cancer [facility] [place] [address] [facility] [place] [address] [facility] [address] [facility] [place] [address] 10/15/2023 11:00 AM EST Office Visit Hematology Oncology [facility] [place] [address] [facility] [place] [address] Jn Fagan MD [address] [place] [address] 10/29/2023 11:15 AM EST Pharmacy Pharmacy Hematology Oncology [facility] [address] [place] [address] [facility], [facility] Hem/Onc [address] [place] [address] 11/21/2023 2:40 PM EDT Telemedicine Ortho Spine Surg [place] [address] [place] [address] Igor Cunningham MD [address] [address] 01/02/2024 2:40 PM EDT Office Visit Ortho Spine Surg [place] [address] [address] Igor Cunningham MD [address] [place] [address] 03/03/2024 5:40 PM EDT Office Visit [facility] [address] [place] [address] Armando Hayward MD [address] [place] [address] Scheduled Orders Name Type Priority Associated Diagnoses Orde r Schedule MYCODE SUBSEQUENT ADULT Lab Routine [facility] Other*[id number] Every 6 Months for 2 Occurrences starting 10/14/2023 until 11/02/2024 Scheduled Procedures Name Priority Associated Diagnoses Date/Ti [...] 08/26/2024 08/26/2023, 04/11/20 15 GFR 09/19/2024 09/19/2023, 02/2024, 08/10/2023, Additional history exists Albumin/Creatinine Ratio [...] as of this encounter Visit Diagnoses Diagnosis [facility] Other*[id number] documented in this encounter Advance Directives Latest [...] the patient have Health Care Power of Papier Mache' Molder? No Full Code 05/22/2019 10:49 PM 05/24/2019 4:13 PM This order reflects the patients wishes and were consensually agreed upon. Question Answer Comments Discussion of Advance Directives occurred with: Patient Does the patient have a Living Will? No Does the patient have Health Care Power of Papier Mache' Molder? No Full Code 04/17/2019 3:28 PM 04/22/2019 3:08 AM This o rder reflects the patients wishes and were consensually agreed upon. Question Answer Comments Discussion of Advance Directives occurred with: Patient/Family Care Teams Frame Pulley Mortising Machine Operator Relationship Specialty Start Date End Date Armando Hayward MD [address] [place] [address] PCP - General Family Medicine 09/29/18 documented as of this encounter
--- OUTSIDE RECORDS SUMMARY | 2024-03-21 02:08 | External Medical Summary ---
Author Name Unknown Address Unknown Organization [facility] - [address] [place] [address] Laboratory Report Ordering Provider Test Date Status ANGELINA IBARRA 10/15/2023 10:13:10 Final Observation Date Value Abnormality Reference (Units ) Status BUN 10/15/2023 10:13:10 18 6-20 (mg/dL) Final Creatinine 10/15/2023 10:13:10 1.1 0.6-1.2 (mg/dL) Final Glomerular filtration rate/1.73 sq M.predicted [Volume Rate/Area] in Serum, Plasma or Blood by Creatinine-based formula (CKD-EPI) 10/15/2023 10:13:10 75 >=60 (mL/min) Final eGFR is calculated based on the CKD-EPI 2020 equation SODIUM 10/15/2023 10:13:10 138 135-146 (m mol/L) Final Potassium 10/15/2023 10:13:10 4.4 3.5-5.1 (m mol/L) Final Cl 10/15/2023 10:13:10 101 98-107 (mm ol/L) Final CO2 10/15/2023 10:13:10 29 22-32 (mmo l/L) Final Anion gap 10/15/2023 10:13:10 8 7-15 (mmol /L) Final Glucose 10/15/2023 10:13:10 145 Above high normal 70 -120 (mg/dL) Final Albumin 10/15/2023 10:13:10 4.2 3.8-5.0 (g /dL) Final AST (Aspartate aminotransferase) 10/15/2023 10:13:10 15 10-50 (U/L) Fin al Alk Phos 10/15/2023 10:13:10 136 Above high normal 35 -130 (U/L) Final Bilirubin, Total 10/15/2023 10:13:10 0.7 <=1 .2 (mg/dL) Final Calcium 10/15/2023 10:13:10 9.3 8.4-10.2 ( mg/dL) Final Protein 10/15/2023 10:13:10 6.8 6.0-8.3 (g /dL) Final ALT (Alanine aminotransferase) 10/15/2023 10:13:10 19 10-50 (U/L) Cornelius stanton Performing Location LABORATORY [address] [place] [address]
--- OUTSIDE RECORDS SUMMARY | 2024-03-21 02:08 | External Medical Summary | Summary of Care ---
Author Name Unknown Organization [facility] Address [address] [place] [address] Phone [phone] Care Team Providers Care [employer] Manager Name Role Phone Armando Hayward MD Primary Care Provider +1- [phone] Reason for Visit * Reason Comments Outpatient Testing Encounter Details Date Type Department Care Team (Late st Contact Info) Description 10/15/2023 10:30 AM EST Laboratory Laboratory [facility] [place] [address] [facility] [place] [address] [facility] [address] [facility] [place] [address] Diffuse large B cell lymphoma (HCC) Allergies [...] before September 30, 2023. 0 09/30/2023 Active Ibrutinib 420 MG Oral [...] mRNA, LNP-s, No Pre serve, 2-Dose Series ([employer]Bridge) 08/08/2021,12/07/2020,11/16/2020 Pneumococcal Polysaccharide PPV23 (Pneumovax) 12/14/2021 Seasonal [...] EST Office [facility] [address] [facility] [place] [address] Jn Fagan MD [address] [facility] [address] 10/29/2023 11:15 AM EST Pharmacy Pharmacy Hematology Oncology [facility] [address] [facility] [address] [facility], [facility] Hem/Onc [address] [place], [place] [address] 11/21/2023 2:40 PM EDT Telemedicine Ortho Spine Surg [place], [place] [address] [place] [address] Igor Cunningham MD [address] [place] [address] 01/02/2024 2:40 PM EDT Telemedicine Ortho Spine Surg [place], [place] [address] [place] [address] Igor Cunningham MD [address] [place] [address] 03/03/2024 5:40 PM EDT Office Visit [facility] [address] [place] [address] Armando Hayward MD [address] [place] [address] Pending Results Name Type Priority Associated Diagnoses Date /Time CBC WITH WBC DIFFERENTIAL Lab STAT Diffuse large B cell lymphoma (HCC) 10/15/2023 10:13 AM EST COMPREHENSIVE METABOLIC PANEL Lab STAT Diffuse large B cell lymphoma (HCC) 10/15/2023 10:13 AM EST LD Lab STAT Diffuse large B cell lymphoma (HCC) 10/15/2023 10:13 AM EST CBC Lab STAT Diffuse large B cell lymphoma (HCC) 10/15/2023 10:13 AM EST DIFFERENTIAL, AUTOMATED Lab STAT Diffuse large B cell lymphoma (HCC) 10/15/2023 10:13 AM EST Scheduled Procedures Name Priority Associated Diagnoses [...] the patient have Health Care Power of Home Health Care Social Worker? No Full Code 05/22/2019 10:49 PM 05/24/2019 4:13 PM This order reflects the patients wishes and were consensually agreed upon. Question Answer Comments Discussion of Advance Directives occurred with: Patient Does the patient have a Living Will? No Does the patient have Health Care Power of Home Health Care Social Worker? No Full Code 04/17/2019 3:28 PM 04/22/2019 3:08 AM This o rder reflects the patients wishes and were consensually agreed upon. Question Answer Comments Discussion of Advance Directives occurred with: Patient/Family Care Teams [employer] Manager Relationship Specialty Start Date End Date Armanod Hayward MD [address] [facility] [place] [address] PCP - General Family Medicine 09/29/18 documented as of this encounter
--- OUTSIDE RECORDS SUMMARY | 2024-03-21 02:08 | External Medical Summary | Summary of Care ---
Author Name Unknown Organization [facility] Address [address] [place] [address] Phone [phone] Care Team Providers Care Copy Center Specialist Name Role Phone Armando Hayward MD Primary Care Provider +1- [phone] Reason for Referral * Evaluate & Treat - Unlimited Visits (Within 10 days (routine)) - Pending Review Specialty Diagnoses / Procedures Referred By Michael dockery Referred To Contact Physical Therapy / Physical Medicine And Rehab Diagnoses Neurogenic claudication due to lumbar spinal stenosis Unspecified orthopedic aftercare Igor Montez MD [address] [place] [id number] Referral ID Status Reason Start Date Expiration Date Visits Requested Visits Authorized [id number] Pending Review Specialty Services Required 10/15/[phone] Question Answer Referral Priority Within 10 days (routine) Where should this appointment be scheduled? External Comments Igor Montez MD [facility] Musculoskeletal [place] [facility] [address], [address] [place] [address] PHYSICAL THERAPY PRESCRIPTION DIAGNOSIS: Gait instability and balance issues PRECAUTIONS: FREQUENCY: 2-3x per week DURATION: 4-6 weeks Evaluate and treat as indicated. Please focus on the following: Lumbar spine strengthening program Postural re-education techniques Lumbar spine and General Trunk Stabilization Body mechanics training Instructions in Home Program/Self-Management Neutral Spine Program Back School Exercise program Strengthening of the: Abs Hamstrings Trunk extensors Quadriceps IT band Modalities including Heat packs Cold packs Soft tissue mobilization Gait training Isokinetic exercise program Comments: s/p lumbar decompression, please focus on stability and gait training/balance - no restrictions Reason for Visit * Reason Comments Post-Op PLD L3-5 DOS 024 Encounter Details Date Type Department Care Team (Late st Contact Info) Description 10/15/2023 8:40 AM EST Office Visit Ortho Spine Surg [place] Garcia [address] [address] Igor Montez MD [address] [address] Neurogenic claudication due to lumbar spinal stenosis*; Unspecified orthopedic aftercare Allergies No known active allergiesdocumented as of [...] 07/25/2023 Active Pravastatin Sodium 80 MG Oral TabletIndications: [...] mouth daily. 30 Tablet 5 10/09/2023 Active Mupirocin 2 % External Ointment (Bactroban) Apply topically to affected area 2 times a day. Apply to nares 22 g 0 09/03/2023 4 Discontinue d(Medicatio n List Clean Up) oxyCODONE HCl 5 MG Oral Tablet (Oxy IR)Indications:Erna rogenic claudication due to lumbar spinal stenosis Take 1 Tablet by mouth every 6 hours as needed for Pain, Moderate. 20 Tablet 0 09/19/2023 4 Discontinue d(Medicatio n List Clean Up) diazePAM 5 MG Oral Tablet (Valium)Indication s:Neurogenic claudication due to lumbar spinal stenosis Take 1 Tablet by mouth every 8 hours as needed for Muscle spasms. 20 Tablet 0 09/19/2023 4 Discontinue d(Medicatio n List Clean Up) Bisacodyl 5 MG Oral Tablet Delayed Release (Dulcolax)Indicati ons:Neurogenic claudication due to lumbar spinal stenosis Take 1 Tablet by mouth daily as needed for Constipation. Do not start before September 20, 2023. 30 Tablet 0 09/20/2023 4 Discontinue d(Medicatio n List Clean Up) documented as of this encounter (statuses as [...] Sign Reading Time Taken Comments Blood Pressure 147/85 10/15/2023 8:21 AM EST Pulse 74 10/15/2023 8:21 AM EST Temperature 36.4 C (97.5 F) 10/15/2023 8:21 AM ES T Respiratory Rate 20 10/15/2023 8:21 AM EST Oxygen Saturation - - Inhaled Oxygen Concentration - - Weight 125.2 kg (276 lb) 10/15/2023 8:21 AM EST Height 190.5 cm (6' 3") 10/15/2023 8:21 AM EST Body Mass Index 34.5 10/15/2023 8:21 AM EST documented in this [...] of this encounter Progress Notes * Igor Montez MD - 10/15/2023 9:23 AM EST MD ZOE DICKSON PA-C ORTHOPAEDIC SURGERY - SPINE [facility] [place] DATE: 10/15/2023 NAME: Forrest Martinez INTERVAL UPDATE: Forrest Martinez is a 68 year old male who is presenting now 3 weeks s/p lumbar decompression. The patient feels very good. Preoperative symptoms are significantly improved. The patient is back to typical activities of daily living and having gradual improvement in function. There is still an element of gait instability noted with the patient and his MEDICATIONS: Current Outpatient Medications Medication Sig Dispense [...] Tablet Take 1 Tablet by mouth daily. Do not start before September 30, 2023. Ibrutinib 420 MG Oral Tablet Take 1 tablet by mouth daily. 30 Tablet 5 No current facility-administered medications for this visit. PHYSICAL EXAM: Blood pressure 147/85, pulse 74, temperature 36.4 C (97.5 F), resp. rate 20, height 1.905 m (6'3"), weight 125.2 kg (276 lb). The surgical incision is well healed. There is a nonfocal neurologic examination. IMAGING: I have personally reviewed the imaging. No new imaging ASSESSMENT AND PLAN: Three weeks s/p lumbar decompression The patient is doing well. I think he will benefit from some physical therapy for gait stabilization and balance. We have given a prescription for this The patient's condition is stable, chronic, and has reached expected treatment goal based upon thiscondition. The plan is PT we will make no changes to the patient's medication management, despite discussing and considering the options As for ongoing follow up, the patient should be seen again by a spine surgeon for additional evaluation of this condition. All of the patients questions were answered. The patient expressed understanding with the information discussed in todays visit. The patient agreed to proceed with the treatment plan. The patient was encouraged to access their My [employer] account where they may review the contents of today's visit. Electronically Signed: gIor Montez MD 10/15/2023 9:23 AM Neurogenic claudication due to lumbar spinal stenosis - PHYSICAL THERAPY REFERRAL OP Unspecified orthopedic aftercare - PHYSICAL THERAPY REFERRAL OP documented in this encounter Nursing Notes * Harris Chawla MED ASSIST - 10/15/2023 8:23 AM EST Forrest Martinez is a 68 year old male returning for visit today. Date of Surgery: 09/18/2023 Surgery Performed: PLD L3-5 Current pain scale: 0/10 The patient's pain management physician is none. The patient has not been doing physical therapy since the last visit The patient is currently taking medications for pain including none. Current patient concerns include none documented in this encounter Plan of Treatment Upcoming Encounters Date Type Department Care Team (Late st Contact Info) Description 10/15/2023 10:30 AM EST Laboratory [facility] [address] [facility] [place] [address] [facility] [address] [facility] [place] [address] 10/15/2023 11:00 AM EST Office Visit Hematology Oncology [facility] [place] [address] [facility] [place] [address] Jn Fagan MD [address] [place] [address] 10/29/2023 11:15 AM EST Pharmacy Pharmacy Hematology Oncology [facility] [address] [place] [address] [facility], [facility] Clinic Hem/Onc [address] [place] [address] 11/21/2023 2:40 PM EDT Telemedicine Ortho Spine Surg [place] [address] [place] [address] [place] [address] Igor Montez MD [address] [place] [address] 01/02/2024 2:40 PM EDT Telemedicine Ortho Spine Surg [place], [place] [address] [place] [address] Igor Montez MD [address] [place] [address] 03/03/2024 5:40 PM EDT Office Visit [facility] [address] [place] [id number] Armando Hayward MD [address] [place] [address] Scheduled Procedures Name Priority Associated Diagnoses Date/Ti me COLONOSCOPY FLEXIBLE PROXIMAL DIAGNOSTIC Recall History of colon polyps Scheduled Referrals Name Type Priority Associated Diagnoses Orde r Schedule PHYSICAL THERAPY REFERRAL OP Referral Within 10 days (routine) Neurogenic claudication due to lumbar spinal stenosis Unspecified orthopedic aftercare Ordered: 10/15/2023 Health Maintenance Due Date Last Done Comments [...] Spinal stenosis, lumbar region, with neurogenic claudication Unspecified orthopedic aftercare documented in this encounter Advance Directives Latest [...] the patient have Health Care Power of Sidewalk Repairer? No Full Code 05/22/2019 10:49 PM 05/24/2019 4:13 PM This order reflects the patients wishes and were consensually agreed upon. Question Answer Comments Discussion of Advance Directives occurred with: Patient Does the patient have a Living Will? No Does the patient have Health Care Power of Sidewalk Repairer? No Full Code 04/17/2019 3:28 PM 04/22/2019 3:08 AM This o rder reflects the patients wishes and were consensually agreed upon. Question Answer Comments Discussion of Advance Directives occurred with: Patient/Family Care Teams Copy Center Specialist Relationship Specialty Start Date End Date Armando Hayward MD [address] [facility] [place] [address] PCP - General Family Medicine 09/29/18 documented as of this encounter
--- OUTSIDE RECORDS SUMMARY | 2024-03-21 02:08 | External Medical Summary | Summary of Care ---
Author Name Unknown Organization [facility] Address [address] [place] [address] Phone [phone] Care Team Providers Care Type Rolling Machine Operator Name Role Phone Armando Hayward MD Primary Care Provider +1- [phone] Reason for Visit * Reason Comments Medication Refill Encounter Details Date Type Department Care Team (Late st Contact Info) Description 10/08/2023 Refill Hematology Oncology [facility] [address] [place] [address] Jn Fagan MD [address] [place] [address] Diffuse large B-cell lymphoma, unspecified body region (HCC) Allergies No known active allergiesdocumented as of this encounter (statuses as of 10/09/2023) Medications Medication Sig Dispensed Refills Start Date End Date Status MULTIVITAMINS PO CAPSIndications:Rout [facility] medical exam one each day 0 06/04/2012 [...] as of this encounter (statuses as of 10/09/2023) Active Problems Problem Noted Date Diagnosed Date [...] as of this encounter (statuses as of 10/09/2023) Resolved Problems Problem Noted Date Diagnosed Date [...] as of this encounter (statuses as of 10/09/2023) Immunizations Name Administration Dates Next Due COVID-19 [...] encounter Miscellaneous Notes * Telephone Encounter - Lennox Borges [facility] - 10/09/2023 9:35 AM ESTSigned Prescriptions: Disp Refills Ibrutinib 420 MG Oral Tablet 30 Tab*5 Sig: Take 1 tablet by mouth daily. Authorizing Provider: JN FAGAN Ordering User: LENNOX BORGES * Telephone Encounter - Lennox Borges [facility] - 10/09/2023 9:28 AM EST Refill Request EPIC Note Clinical Pharmacy Service (Hematology/Oncology): Refill Request(s) PHYSICIAN ACTION: No Assessment & Plan After reviewing the parameters in order to refill the patient's medication(s), the following was determined: The medication(s), ibrutinib, was refilled and no parameters need to be addressed No communication to requesting entity necessary Refill Parameters The following parameters were assessed in order to decide whether or not this refill was appropriate: Refill Parameter Comments If the patient was seen in the last 6 months (12 months for [facility] patients) Yes - 09/16/23 If the labs were completed per prescribing information recommendations or provider recommendations Yes - 09/14/23 If the labs were within normal limits or stable at baseline Yes If the dose was correct and/or if the prescription sig reflects the current prescribed dose Yes If there were any new drug interactions with the patient's oral chemotherapy No If there were any care gaps/baseline labs that need to be addressed No Lennox Borges [facility] Ambulatory Clinical Pharmacist | Oral Chemotherapy Clinic [facility] 10/09/2023, 9:29 AM documented in this encounter Plan of Treatment Upcoming Encounters Date Type Department Care Team (Late st Contact Info) Description 10/15/2023 8:40 AM EST Office Visit Ortho Spine Surg [place] [address] [address] Igor Cunningham MD [address] [address] 10/15/2023 10:30 AM EST Laboratory Laboratory Cancer [facility] [address] [facility] [place] [address] [facility], [facility] [address] [facility] [place] [address] 10/15/2023 11:00 AM EST Office Visit Hematology Oncology [facility] [address] [place] [address] Jn Fagan MD [address] [place] [address] 10/29/2023 11:15 AM EST Pharmacy Pharmacy Hematology Oncology [facility] [address] [place] [address] [facility], [facility] Clinic Hem/Onc [address] [place] [address] 11/21/2023 2:40 PM EDT Telemedicine Ortho Spine Surg [place] [address] [address] Igor Cunningham MD [address] [address] 01/02/2024 2:40 PM EDT Office Visit Ortho Spine Surg [place] [address] [address] Igor Cunningham MD [address] [place] [address] 03/03/2024 5:40 PM EDT Office Visit [facility] [address] [facility] [place] [address] Armando Hayward MD [address] [place] [address] Scheduled Procedures Name Priority Associated [...] 08/26/2024 08/26/2023, 04/11/20 15 GFR 09/19/2024 09/19/2023, 0 02/2024, 08/10/2023, Additional history exists Albumin/Creatinine Ratio [...] the patient have Health Care Power of Cafe Helper? No Full Code 05/22/2019 10:49 PM 05/24/2019 4:13 PM This order reflects the patients wishes and were consensually agreed upon. Question Answer Comments Discussion of Advance Directives occurred with: Patient Does the patient have a Living Will? No Does the patient have Health Care Power of Cafe Helper? No Full Code 04/17/2019 3:28 PM 04/22/2019 3:08 AM This o rder reflects the patients wishes and were consensually agreed upon. Question Answer Comments Discussion of Advance Directives occurred with: Patient/Family Care Teams Type Rolling Machine Operator Relationship Specialty Start Date End Date Armando Hayward MD [address] [place] [address] PCP - General Family Medicine 09/29/18 documented as of this encounter"
--- OUTSIDE RECORDS SUMMARY | 2024-03-21 02:09 | External Medical Summary | Summary of Care ---
Author Name Unknown Organization [facility] Address [address] [place] [address] Phone [phone] Care Team Providers Care Coil Winder Repair Name Role Phone Armando Hayward MD Primary Care Provider +1- [phone] Reason for Visit * Reason Comments Medication Management Encounter Details Date Type Department Care Team (Late st Contact Info) Description 09/26/2023 11:15 AM [facility] Pharmacy Pharmacy Hematology Oncology [facility] [address] [place] [address] [facility], [facility] Clinic Hem/Onc [address] [place] [address] Diffuse large B-cell lymphoma, unspecified body region (HCC)* Allergies No known active allergiesdocumented as of this encounter (statuses as of 09/26/2023) Medications Medication Sig Dispensed Refills Start Date [...] 20, 2023. 30 Tablet 0 09/20/2023 Active documented as of this encounter (statuses as of 09/26/2023) Active Problems Problem Noted Date Diagnosed Date [...] as of this encounter (statuses as of 09/26/2023) Resolved Problems Problem Noted Date Diagnosed Date [...] as of this encounter (statuses as of 09/26/2023) Immunizations Name Administration Dates Next Due COVID-19 mRNA, LNP-s, No Pre serve, 2-Dose Series ([facility]) 08/08/2021,12/07/2020,11/16/2020 Pneumococcal Polysaccharide PPV23 (Pneumovax) 12/14/2021 Seasonal [...] this encounter Progress Notes * Isela Tim, [facility] - 09/26/2023 11:44 AM EST MEDICATION THERAPY MANAGEMENT IBRUTINIB (IMBRUVICA) TREATMENT PROGRESS NOTE Forrest Martinez [phone] Patient Phone Numbers Mobile (, Niyah) [phone] Communication: Spoke to: Patient Current Treatment: Medication: Ibrutinib (Imbruvica) Indication: DLBCL, 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 Fagan (formerly Dr. Cruz) Interval History: Ibrutinib held 04/21/22-04/30/22 for colonoscopy Per 05/18 OV, CBCd and CMP monthly Reports stable BP < 150/90 No other concerns or upcoming procedures, tolerating therapy well Changes to medication list since last visit? No Assessment and Plan: CBCd CMP stable Stable grade 1 thrombocytopenia Per PI, interrupt ibrutinib for grade 3 or greater neutropenia with infection/fever or grade 4 hematologic toxicities (Plts <25k) Continue current therapy and monthly labs Confirmed standing lab orders Requested labs with 09/16 OV or a couple of days prior -- requested call back to schedule appt if needed Pt scheduled for LAMINECTOMY FACETECTOMY AND FORAMINOTOMY LUMBAR on 09/18/[address] Fagan recommending 1 week perioperative hold. May need longer than 1 week post-op, but can plan for 1 week minimum and re-evaluate at that time Per Dr. Fagan, patient to hold ibrutinib 1 week prior to procedure Procedure scheduled for 09/18, last dose of ibrutinib to be taken on 09/10/23. Will hold leading up toprocedure and plan to resume post-op as long as ortho feels risk of post op hemorrhage has abated 09/19 - Patient currently admitted following procedure 09/24 - patient discharged home as of 09/19. MTM will follow-up on 09/26 (about 1 week after procedure) to review symptoms improvement and to advise if appropriate to resume treatment 09/26 - Patient stated he has been feeling well - denied concerns of infection or bleeding Patient noted that he was advised by ortho to delay resuming his imbruvica until 09/30 MT will follow-up closer to anticipated resuming date to ensure patient still recovering well following procedure Patient aware to call clinic with questions or concerns prior to follow-up Assessment of compliance: N/a Assessment of adverse effects attributed to drug therapy: N/a Dose adjustment needed based on lab or adverse drug reaction? Not per labs Follow up: MT 09/30 Isela Tim, PharmD Ambulatory Clinical Pharmacist | Oral Chemotherapy Clinic [facility] 09/26/2023 12:55 PM Suggested lab monitoring: CBCd qmo; SCr/LFTs q3-4mo, uric acid levels as clinically necessary Time Spent on Encounter: < 5 minutes Encounter Group: Hematology Encounter Interventions Item Category: Oral Chemotherapy Ibrutinib Problem/Rationale: Safety: Needs additional monitoring - Medication Requires monitoring Pharmacist Intervention(s): Infection surveillance, Post-op follow-up, and Toxicity monitoring Magnitude of Intervention: Monitoring with direction (Level 1) documented in this encounter Plan of Treatment Upcoming Encounters Date Type Department Care Team (Late st Contact Info) Description 09/30/2023 11:15 AM EST Pharmacy Pharmacy Hematology Oncology [facility] [address] [place] [address] [facility], [facility] Clinic Hem/Onc [address] [place] [address] 10/15/2023 8:40 AM EST Office Visit Ortho Spine Surg [place] [address] [address] Igor Cunningham MD [address] [address] 10/15/2023 10:30 AM EST Laboratory Laboratory [facility] [place] [facility] [address] [place] [address] [facility], [facility] [address] [facility] [place] [address] 10/15/2023 11:00 AM EST Office Visit Hematology Oncology [facility], [place] [address] [facility] [place] [id number] Jn Fagan MD [address] [place] [address] 11/21/2023 2:40 PM EDT Telemedicine Ortho Spine Surg [place], [place] [address] [place] [address] Igor Cunningham MD [address] [place] [address] 01/02/2024 2:40 PM EDT Office Visit Ortho Spine Surg [place], [place] [address] [place] [address] Igor Cunningham MD [address] [place] [address] 03/03/2024 5:40 PM EDT Office Visit [facility] [address] [place] [address] Armnado Hayward MD [address] [place] [address] Scheduled Procedures Name Priority Associated [...] Additional history exists Lipid Panel 02/10/2028 02/09/2023, 02/2022, 10/24/2020, Additional history exists DTaP,Tdap,and Td [...] the patient have Health Care Power of Airset Molder? No Full Code 05/22/2019 10:49 PM 05/24/2019 4:13 PM This order reflects the patients wishes and were consensually agreed upon. Question Answer Comments Discussion of Advance Directives occurred with: Patient Does the patient have a Living Will? No Does the patient have Health Care Power of Airset Molder? No Full Code 04/17/2019 3:28 PM 04/22/2019 3:08 AM This o rder reflects the patients wishes and were consensually agreed upon. Question Answer Comments Discussion of Advance Directives occurred with: Patient/Family Care Teams Coil Winder Repair Relationship Specialty Start Date End Date Armando Hayward MD [address] [place] [address] PCP - General Family Medicine 09/29/18 documented as of this encounter"
--- OUTSIDE RECORDS SUMMARY | 2024-03-21 02:09 | External Medical Summary | Summary of Care ---
Author Name Unknown Organization [facility] Address [address] [place] [address] Phone [phone] Care Team Providers Care Zipper Trimmer Hand Name Role Phone Armando Hayward MD Primary Care Provider +1- [phone] Reason for Visit * Reason Comments Medication Management Encounter Details Date Type Department Care Team (Late st Contact Info) Description 09/30/2023 11:15 AM [facility] Pharmacy Pharmacy Hematology Oncology [facility] [address] [place] [address] [facility] Hem/Onc [address] [place] [address] Diffuse large B-cell lymphoma, unspecified body region (HCC)* Allergies No known active allergiesdocumented as of this encounter (statuses as of 09/30/2023) Medications Medication Sig Dispensed Refills Start Date [...] as of this encounter (statuses as of 09/30/2023) Active Problems Problem Noted Date Diagnosed Date [...] as of this encounter (statuses as of 09/30/2023) Resolved Problems Problem Noted Date Diagnosed Date [...] as of this encounter (statuses as of 09/30/2023) Immunizations Name Administration Dates Next Due COVID-19 mRNA, LNP-s, No Pre serve, 2-Dose Series ([place]) 08/08/2021,12/07/2020,11/16/2020 Pneumococcal Polysaccharide PPV23 (Pneumovax) 12/14/2021 Seasonal [...] encounter Progress Notes * Isela Tim, [facility] - 09/30/2023 1:57 PM EST MEDICATION THERAPY MANAGEMENT IBRUTINIB (IMBRUVICA) TREATMENT PROGRESS NOTE Forrest Martinez [id number] Patient Phone Numbers Mobile (, Niyah) [phone] Communication: Spoke to: Patient Current Treatment: Medication: Ibrutinib (Imbruvica) Indication: DLBCL, 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 Fagan (formerly Dr. Cruz) Interval History: [...] to delay resuming his imbruvica until 09/30 09/30 - reviewed with Dr. Fagan regarding ortho recommendation to delay ibrutinib until 09/30 - Agreeable with plan Of note, PI recommends holding ibrutinib for 3-7 days prior to and after surgery Patient continues to deny concerns of infection or bleeding Confirmed patient resumed ibrutinib as of today - no concerns at this time MTM will follow-up in 1 week to review toleration to therapy after resuming Assessment of compliance: N/a Assessment of adverse effects attributed to drug therapy: N/a Dose adjustment needed based on lab or adverse drug reaction? Not per labs Follow up: MTM 10/07 Isela Tim, PharmD Ambulatory Clinical Pharmacist | Oral Chemotherapy Clinic [facility] 09/30/2023 1:58 PM Suggested lab monitoring: CBCd qmo; SCr/LFTs q3-4mo, uric acid levels as clinically necessary Time Spent on Encounter: 6 - 10 minutes Encounter Group: Hematology Encounter Interventions Item Category: Oral Chemotherapy Ibrutinib Problem/Rationale: Safety: Needs additional monitoring - Medication Requires monitoring Pharmacist Intervention(s): Care coordination, Clarification with Provider, Infection surveillance,Medication resumed, Post-op follow-up, and Toxicity monitoring Magnitude of Intervention: Modification of medication for asymtomatic patients (Level 2) documented in this encounter Plan of Treatment Upcoming Encounters Date Type Department Care Team (Late st Contact Info) Description 10/07/2023 11:15 AM EST Pharmacy Pharmacy Hematology Oncology [facility] [address] [place] [address] [facility] Hem[facility]Onc [address] [place] [address] 10/15/2023 8:40 AM EST Office Visit Ortho Spine Surg Tawanda Garcia [address] [address] Igor Cunningham MD [address] [address] 10/15/2023 10:30 AM EST [facility] [address] [place] [address] [facility] [place] [address] [facility] [place] [address] 10/15/2023 11:00 AM EST Office [facility] [address] [facility] [place] [address] Jn Fagan MD [address] [place] [address] 11/21/2023 2:40 PM EDT Telemedicine Ortho Spine Surg [place] [address] [place] [address] Igro Cunningham MD [address] [place] [address] 01/02/2024 2:40 PM EDT Office Visit Ortho Spine Surg Angely Aguilar [place] [address] [place] [address] Igor Cunningham MD [address] [place] [address] 03/03/2024 5:40 PM EDT Office Visit [facility] [address] [place] [phone] Armando Hayward MD [address], [place] [phone] Scheduled Procedures Name Priority Associated Diagnoses Date/Ti me COLONOSCOPY FLEXIBLE PROXIMAL DIAGNOSTIC Recall History of colon polyps Health Maintenance Due Date Last Done Comments Hepatitis B (1 of 3 - Risk 3-dose series) 2015 Zoster Vaccines (2 of 2) 10/05/2022 08/10/2022 Pneumococcal Vaccine: 65+ Years (2 - PCV) 12/14/2022 12/14/2021 COVID-19 Vaccine (24 season) 2023 08/08/2021, 12/07/2020, 11/16/2020 Influenza Vaccine (FLU shot) (#1) 2023 05/28/2022, 06/22/2021, 06/10/2020, Additional history exists Depression Screening 08/26/2024 08/26/2023, 04/11/20 15 GFR 09/19/2024 09/19/2023, 0102/2024, 08/10/2023, Additional history exists Albumin/Creatinine Ratio 10/10/2025 [...] the patient have Health Care Power of Furnace Setter? No Full Code 05/22/2019 10:49 PM 05/24/2019 4:13 PM This order reflects the patients wishes and were consensually agreed upon. Question Answer Comments Discussion of Advance Directives occurred with: Patient Does the patient have a Living Will? No Does the patient have Health Care Power of Furnace Setter? No Full Code 04/17/2019 3:28 PM 04/22/2019 3:08 AM This o rder reflects the patients wishes and were consensually agreed upon. Question Answer Comments Discussion of Advance Directives occurred with: Patient/Family Care Teams Zipper Trimmer Hand Relationship Specialty Start Date End Date Armando Hayward MD [address] [place] [address] PCP - General Family Medicine 09/29/18 documented as of this encounter"
--- OUTSIDE RECORDS SUMMARY | 2024-03-21 02:09 | External Medical Summary | Summary of Care ---
Author Name Unknown Organization [facility] Address [address] [place] [address] Phone [phone] Care Team Providers Care Box Toe Maker Name Role Phone Armando Hayward MD Primary Care Provider +1- [phone] Reason for Visit * Reason Comments Medication Management Encounter Details Date Type Department Care Team (Late st Contact Info) Description 10/07/2023 11:15 AM [facility] Pharmacy Pharmacy Hematology Oncology [facility] [address] [place] [address] [facility] Hem/Onc [address] [place] [address] Diffuse large B-cell lymphoma, unspecified body region (HCC)* Allergies No known active allergiesdocumented as of this encounter (statuses as of 10/07/2023) Medications Medication Sig Dispensed Refills Start Date [...] as of this encounter (statuses as of 10/07/2023) Active Problems Problem Noted Date Diagnosed Date [...] as of this encounter (statuses as of 10/07/2023) Resolved Problems Problem Noted Date Diagnosed Date [...] as of this encounter (statuses as of 10/07/2023) Immunizations Name Administration Dates Next Due COVID-19 mRNA, LNP-s, No Pre serve, 2-Dose Series ([employer]) 08/08/2021,12/07/2020,11/16/2020 Pneumococcal Polysaccharide PPV23 (Pneumovax) 12/14/2021 Seasonal [...] of this encounter Progress Notes * Isela Tim RPh - 10/07/2023 3:29 PM EST MEDICATION THERAPY MANAGEMENT IBRUTINIB (IMBRUVICA) TREATMENT PROGRESS NOTE Forrest Martinez [id number] Patient Phone Numbers Mobile (, Niyah) [phone] Communication: Left message requesting return call to assess toleration to therapy Current Treatment: Medication: Ibrutinib (Imbruvica) Indication: DLBCL, 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 Fagan (formerly Dr. Cruz) Interval History: Ibrutinib held 04/21/22-04/30/22 for colonoscopy Per 05/18 OV, CBCd and CMP monthly Reports stable BP < 150/90 No other concerns or upcoming procedures, tolerating therapy well Changes to medication list since last visit? No Assessment and Plan: Left voicemail requesting return call to clinic to review toleration to therapy following resuming Patient scheduled for OV with Dr. Fagan on 10/15 Assessment of compliance: N/a Assessment of adverse effects attributed to drug therapy: N/a Dose adjustment needed based on lab or adverse drug reaction? Not per labs Follow up: OV 10/15, MTM 10/29 Isela Tim, PharmD Ambulatory Clinical Pharmacist | Oral Chemotherapy Clinic [facility] 10/07/2023 3:29 PM Suggested lab monitoring: CBCd qmo; SCr/LFTs [...] Visit Ortho Spine Surg Tawanda Garcia [address] [place] [address] Igor Cunningham MD [address] [address] 10/15/2023 10:30 AM EST Laboratory Laboratory Cancer [facility] [place] [address] [facility] [place] [address] [facility] [address] [facility] [place] [address] 10/15/2023 11:00 AM EST Office Visit Hematology Oncology [facility] [place] [address] [facility] [place] [address] Jn Fagan MD [address] [place] [address] 10/29/2023 11:15 AM EST Pharmacy Pharmacy Hematology Oncology [facility] [address] [place] [address] [facility] Hem/Onc [address] [place] [address] 11/21/2023 2:40 PM EDT Telemedicine Ortho Spine Surg Tawanda Garcia [address] [address] Igor Cunningham MD [address] [place] [address] 01/02/2024 2:40 PM EDT Office Visit Ortho Spine Surg Tawanda Garcia [address] [address] Igor Cunningham MD [address] [address] [address] 03/03/2024 5:40 PM EDT Office Visit [address] [place] [phone] Armando Hayward MD [address] [place] [address] Scheduled Procedures Name Priority Associated [...] the patient have Health Care Power of Check Processing Clerk? No Full Code 05/22/2019 10:49 PM 05/24/2019 4:13 PM This order reflects the patients wishes and were consensually agreed upon. Question Answer Comments Discussion of Advance Directives occurred with: Patient Does the patient have a Living Will? No Does the patient have Health Care Power of Check Processing Clerk? No Full Code 04/17/2019 3:28 PM 04/22/2019 3:08 AM This o rder reflects the patients wishes and were consensually agreed upon. Question Answer Comments Discussion of Advance Directives occurred with: Patient/Family Care Teams Box Toe Maker Relationship Specialty Start Date End Date Armando Hayward MD [address] [facility] [place] [address] PCP - General Family Medicine 09/29/18 documented as of this encounter"
--- OUTSIDE RECORDS SUMMARY | 2024-03-21 02:10 | External Medical Summary | Summary of Care ---
Author Name Unknown Organization [facility] Address [address] [place] [address] Phone [phone] Care Team Providers Care Rocket Motor Tester Name Role Phone Armando Hayward MD Primary Care Provider +1- [phone] Reason for Visit * Reason Comments Medication Management Encounter Details Date Type Department Care Team (Late st Contact Info) Description 09/24/2023 11:15 AM [facility] Pharmacy Pharmacy Hematology Oncology [facility] [address] [place] [address] [facility] Hem/Onc [address] [place] [address] Diffuse large B-cell lymphoma, unspecified body region (HCC)* Allergies No known active allergiesdocumented as of this encounter (statuses as of 09/24/2023) Medications Medication Sig Dispensed Refills Start Date [...] as of this encounter (statuses as of 09/24/2023) Active Problems Problem Noted Date Diagnosed Date [...] as of this encounter (statuses as of 09/24/2023) Resolved Problems Problem Noted Date Diagnosed Date [...] as of this encounter (statuses as of 09/24/2023) Immunizations Name Administration Dates Next Due COVID-19 mRNA, LNP-s, No Pre serve, 2-Dose Series ([employer]) 08/08/2021,12/07/2020,11/16/2020 Pneumococcal Polysaccharide PPV23 (Pneumovax) 12/14/2021 Seasonal [...] [facility] - 09/24/2023 1:19 PM EST MEDICATION THERAPY MANAGEMENT IBRUTINIB (IMBRUVICA) TREATMENT PROGRESS NOTE Forrest Martinez [id number] Patient Phone Numbers Mobile (, Niyah) [phone] Communication: Chart review Current Treatment: Medication: Ibrutinib (Imbruvica) Indication: DLBCL, 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 Fagan (formerly Dr. Cruz) Interval History: [...] to advise if appropriate to resume treatment Assessment of compliance: N/a Assessment of adverse effects attributed to drug therapy: N/a Dose adjustment needed based on lab or adverse drug reaction? Not per labs Follow up: [facility] 09/26 Isela Tim, PharmD Ambulatory Clinical Pharmacist | Oral Chemotherapy Clinic [facility] 09/24/2023 1:19 PM Suggested lab monitoring: CBCd qmo; SCr/LFTs q3-4mo, uric acid levels as clinically necessary Time Spent on Encounter: < 5 minutes documented in this encounter Plan of Treatment Upcoming Encounters Date Type Department Care Team (Late st Contact Info) Description 09/26/2023 11:15 AM EST Pharmacy Pharmacy Hematology Oncology [facility] [address] [place] [address] [facility] Hem/Onc [address] [place] [address] 10/15/2023 8:40 AM EST Office Visit Ortho Spine Surg Tawanda Garcia [address] [address] Igor Cunningham MD [address] [address] [address] 10/15/2023 10:30 AM EST Laboratory [facility] [address] [facility] [place] [address] [facility] [address] [place] [address] 10/15/2023 11:00 AM EST Office Visit H[facility]ology [facility] [address] [place] [address] Jn Fagan MD [address] [facility] [place] [address] 11/21/2023 2:40 PM EDT Telemedicine Ortho Spine Surg Angely Aguilar [place] [address] [address] Igor Cunningham MD [address] [place] [address] 01/02/2024 2:40 PM EDT Office Visit Ortho Spine Surg Tawanda Garcia [address] [place] [address] Igor Cunningham MD [address] [place] [address] 03/03/2024 5:40 PM EDT Office Visit [facility] [address] [place] [address] Armando Hayward MD [address] [place] [address] Scheduled Procedures Name Priority Associated [...] the patient have Health Care Power of Consumer Studies Professor? No Full Code 05/22/2019 10:49 PM 05/24/2019 4:13 PM This order reflects the patients wishes and were consensually agreed upon. Question Answer Comments Discussion of Advance Directives occurred with: Patient Does the patient have a Living Will? No Does the patient have Health Care Power of Consumer Studies Professor? No Full Code 04/17/2019 3:28 PM 04/22/2019 3:08 AM This o rder reflects the patients wishes and were consensually agreed upon. Question Answer Comments Discussion of Advance Directives occurred with: Patient/Family Care Teams Rocket Motor Tester Relationship Specialty Start Date End Date Armando Hayward MD [address] [place] [address] PCP - General Family Medicine 09/29/18 documented as of this encounter"
[2024-03-21] MEDS: SODIUM CHLORIDE 0.9% 1,000 ML IV ONE (02:34)
[2024-03-21] MEDS: DIGOXIN 250 MCG in SYRINGE 9 ML IV STA (02:36)
[2024-03-21 06:58] LABS: BUN Creatinine Ratio 19.2 (10-20); Calcium 8.8 mg/dl (8.6-10.3); Creatinine Clr Calc Pharmacy 96.4 ml/min; Est GFR (African American) 85.1 ml/min; Est GFR (Non-African American) 73.4 ml/min; Partial Thromboplastin Time 26 Seconds (21-31); Potassium 4.6 mmol/L (3.5-5.1)
[2024-03-21 07:05] LABS: Troponin I High Sensitivity 31.8 pg/ml (0-20)
[2024-03-21] MEDS: SODIUM CHLOR 7% 4 ML NEB NEB SCH (07:15)
[2024-03-21] MEDS: LEVALBUTEROL 1.25 MG/3 ML NEB NEB SCH (07:15)
[2024-03-21] MEDS: METOPROLOL TARTRATE 25 MG TAB PO SCH (08:31)
[2024-03-21] MEDS: amLODIPine BESYLATE 5 MG TAB PO SCH (08:32)
[2024-03-21] MEDS: guaiFENesin 600 MG TABCR PO SCH (08:32)
[2024-03-21] MEDS: DOXYCYCLINE HYCLATE 100 MG CAP PO SCH (08:32)
[2024-03-21] MEDS ORDERED: hydroCHLOROthiazide 25 MG TAB PO SCH (09:00)
[2024-03-21 09:06] LABS: Magnesium 2.3 mg/dl (1.7-2.4)
[2024-03-21 09:46] LABS: Hematocrit (blood only) 38.1 % (42.0-52.0); Hemoglobin 12.6 g/dl (14.0-18.0); Mean Corpuscular Hemoglobin 28.3 pg (25.0-34.0); Mean Corpuscular Hgb Conc 33.1 g/dL (32.0-36.0); Mean Corpuscular Volume 85.4 fL (80.0-100.0); Mean Platelet Volume 9.8 fL (9.4-12.4); Platelet Count 255 K/uL (130-400); RDW Coefficient of Variation 12.8 % (11.5-14.5); RDW Standard Deviation 39.5 fL (36.4-46.3); Red Blood Count 4.46 M/uL (4.70-6.10)
[2024-03-21 10:42] LABS: Estimated Average Glucose 163 mg/dl; Hemoglobin A1C 7.3 % (4.5-5.6)
--- NOTE | 2024-03-21 11:55 | Electrocardiogram Report ---
Test Reason : Blood Pressure : / mmHG Vent. Rate : 123 BPM Atrial Rate : 147 BPM P-R Int : 000 ms QRS Dur : 096 ms QT Int : 264 ms P-R-T Axes : 000 000 059 degrees QTc Int : 377 ms Poor data quality, interpretation may be adversely affected Atrial fibrillation with rapid ventricular response Cannot rule out Inferior infarct (cited on or before 20-MAR-2024) Abnormal ECG When compared with ECG of 20-MAR-2024 12:48, Atrial fibrillation has replaced Sinus rhythm Confirmed by Femi Ruiz ([id number]) on 03/21/2024 11:55:07 AM Referred By: Ozzy Kaplan Confirmed By:Femi Ruiz
--- NOTE | 2024-03-21 11:56 | Electrocardiogram Report ---
Test Reason : Blood Pressure : / mmHG Vent. Rate : 124 BPM Atrial Rate : 156 BPM P-R Int : 000 ms QRS Dur : 092 ms QT Int : 298 ms P-R-T Axes : 000 -13 029 degrees QTc Int : 428 ms Atrial fibrillation with rapid ventricular response Inferior infarct (cited on or before 20-MAR-2024) Abnormal ECG When compared with ECG of 21-MAR-2024 01:30, (unconfirmed) No significant change was found Confirmed by Femi Ruiz ([id number]) on 03/21/2024 11:55:45 AM Referred By: Ozzy Kaplan Confirmed By:Femi Ruiz
--- NOTE | 2024-03-21 12:07 | Cardiology Consultation ---
Date of Consultation March 21, 2024 Assessment & Plan (1) Paroxysmal atrial fibrillation: (2) Mycoplasma pneumonia: (3) HTN, goal below 130/80: Plan 68 yo man who presents with shortness of breath, cough, found to have pneumonia. Went into new onset afib with RVR, likely driven by acute illness. - Asymptomatic and euvolemic on exam, is requiring supplemental oxygen at this time - heart rates still elevated on telemetry in 120-140s - increase metoprolol tartate to 50 mg twice daily - continue to monitor on telemetry - discussed increased stroke risk with afib, [id number] score of 2 (age, HTN), recommend anticoagulation, as also hypercoagulable due to lymphoma, discussed risks and benefits of anticoagulation, patient agreeable to start Eliquis 5 mg twice daily - echo read pending - arrange outpatient cardiology follow up at discharge Case discussed with supervising physician, further recommendations per Dr. Paulino. I spent a total of 40 minutes on the date of service in preparation, delivery, and documentation of the care provided to this patient excluding any time spent in the performance of separately billed services. This visit was a split-shared visit with the substantial portion of the decision making performed by the supervising supervisor kosher dietary service/billing provider. Supervising Physician Co-Signing Physician Notes I have personally performed a history and physical examination on the patient. I have reviewed the advance practitioner's documentation, and I agree with, and take responsibility for the plan of care. I spent a total of 40 minutes on the date of service in preparation, delivery, and documentation of the care provided to this patient, excluding any time spent in the performance of separately billed services. 68-year-old male with a past medical history of CLL, HTN, prior history of prostate cancer, non-Hodgkin's lymphoma presented with symptoms of cough and found to have pneumonia. Overnight he went into atrial fibrillation with rapid ventricular response which is a new diagnosis for patient. He denies any prior history of CAD/CHF. He denies any prior history of CVA or abnormal bleeding or any history of intracranial hemorrhage. He is not having any significant symptoms from the atrial fibrillation. He denies chest pain, dyspnea, apnea, PND, Edema, palpitations, or syncope. Echocardiogram has been ordered and will review images once they are available. I had a long discussion with patient and his about pathophysiology and management of his atrial fibrillation. He does carry a Lonnie Vascor of 2 with age and hypertension. Anticoagulation was recommended however patient states that he would like to discuss this with hematology/oncology as he was told by his oncologist that ibrutinib carries an increased risk of bleeding (ibrutinib inhibit platelet function). Reviewing the literature, the data is very limited in regards to optimal anticoagulant selection with patients on ibrutinib who developed atrial fibrillation. Would recommend getting hematology/oncology input on anticoagulation. 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 Patient reports he has been feeling sick for about the past 1 week. Hypoxic on arrival. Positive for mycoplasma pneumonia. Overnight he was in afib with RVR, 120s. No prior history of afib. Troponin elevated, but flat. On evaluation today, states overall he feels well. Has cough, but improved after breathing treatments. Denies chest pain, shortness of breath, palpitations, lightheadedness, edema. States compliant with all medications at home. Nonsmoker, denies alcohol and illicit drug use. Heart rates still elevated on telemetry. Allergies Allergy/AdvReac Type Severity Reaction Status Date / Time No Known Allergies Allergy Unverified 04/23/19 21:07 Home Medications Medication Instructions Recorded Confirmed Type losartan 100 mg tablet 100 mg PO HS 04/23/19 03/20/24 History pravastatin 80 mg tablet 80 mg PO HS 04/23/19 03/20/24 History coenzyme Q10 400 mg capsule 400 mg PO DAILY 04/24/19 03/20/24 History multivitamin 1 tab PO DAILY 04/24/19 03/20/24 History omega-3 fatty acids 1,000 mg 1,000 mg PO DAILY 04/24/19 03/20/24 History capsule (Fish Oil Concentrate) amlodipine 5 mg tablet 5 mg PO DAILY 03/20/24 03/20/24 History gabapentin 300 mg capsule 300 mg PO HS 03/20/24 03/20/24 History hydrochlorothiazide 25 mg tablet 25 mg PO DAILY 03/20/24 03/20/24 History ibrutinib 420 mg tablet (Imbruvica) 420 mg PO HS 03/20/24 03/20/24 History Patient History Medical History Prostate cancer 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 HLD (hyperlipidemia) HTN (hypertension) Surgical History History of back surgery Social History Smoking Status: Never smoker Hx Alcohol Use: No Hx Substance Use: No Preferred Language: Chinese Communication Ability: Effective Power Plant Inspector Required: No Beliefs That Will Affect Care: None marital status: Current Living Situation: Spouse Other Information That Helps Us Care for You: No Feels Safe at Home: Yes Safety Concerns: Feels Safe At This Time Assistive Devices: Glasses Review of Systems Review of Systems: CONSTITUTIONAL: No change in weight, No weakness, No fatigue and No fevers, No sweats or chills. PULMONARY: No cough, sputum, or hemoptysis, No wheezing, No shortness of breath and No recent change in breathing. CARDIOVASCULAR: No chest pain, No dyspnea on exertion, No edema, No palpitations and No syncope. GASTROINTESTINAL: No abdominal pain, No change in bowel habits, No significant heartburn, No nausea, No vomiting, No diarrhea, No constipation, No blood in stools or black tarry stools. No dysphagia. HEMATOLOGIC: No abnormal bleeding and No bruising. NEUROLOGICAL: Normal balance, No headaches and No weakness. Physical Exam Physical Exam: General: No acute distress. A+Ox3. HEENT: Normocephalic. Atraumatic. PERRL. EOMI. Conjunctiva and sclera clear. NECK: No carotid bruits. No JVD. Carotid upstrokes are brisk. Heart: Irregularly irregular and tachycardic. S1 and S2 noted. No murmur. No rubs or gallops. PMI non displaced. Lungs: Clear to auscultation. No wheezes. No rhonchi. No rales. Abdomen: Normal bowel sounds. Soft. Nontender. No masses or organomegaly. No abdominal bruits. Extremities: No edema. No clubbing or cyanosis. Pulses: radial=2/4, posterior tibial=2/4, dorsalis pedis = 2/4. NEURO: No focal deficits. PSYCH: Appropriate affect and insight. Results & Data Vital Signs (Past 12 Hours) Vital Signs Temp Pulse Pulse Resp BP BP Pulse Ox 03/21/24 11:25 36.9 C 127 H 16 114/71 94 03/21/24 08:30 03/21/24 07:15 106 H 15 96 03/21/24 07:09 99 H 03/21/24 04:54 102 H 155/88 H 03/21/24 04:31 121 H 147/70 H 03/21/24 04:23 121 H 147/70 H 03/21/24 02:36 127 H 03/21/24 02:10 118 H 119/77 03/21/24 02:04 118 H 18 119/77 92 03/21/24 01:36 127 H 177/103 H 03/21/24 01:30 36.6 C 127 H 20 177/103 H 93 O2 Del Method O2 Flow Rate 03/21/24 11:25 Nasal Cannula 2 03/21/24 08:30 Nasal Cannula 2 03/21/24 07:15 Nasal Cannula 2 03/21/24 07:09 03/21/24 04:54 03/21/24 04:31 03/21/24 04:23 03/21/24 02:36 03/21/24 02:10 03/21/24 02:04 Nasal Cannula 2 03/21/24 01:36 03/21/24 01:30 Nasal Cannula 2 Laboratory Results Cardiac Enzymes 03/20/24 03/20/24 03/20/24 Range/Units 12:54 14:05 15:08 AST 31 (13-39) U/L Troponin I High Sens 33.8 H 31.4 H (0-20) pg/ml B-Natriuretic Peptide 61 (0-100) pg/ml 03/21/24 Range/Units 05:46 AST (13-39) U/L Troponin I High Sens 31.8 H (0-20) pg/ml B-Natriuretic Peptide (0-100) pg/ml Coagulation 03/20/24 03/20/24 03/21/24 Range/Units 12:54 14:05 05:46 PT 11.5 (9.0-12.0) Seconds APTT 25 26 (21-31) Seconds B-Natriuretic Peptide 61 (0-100) pg/ml CBC 03/20/24 03/21/24 03/21/24 Range/Units 12:54 05:46 09:20 WBC 10.58 Cancelled 13.30 H (4.8-10.8) K/ul RBC 4.45 L Cancelled 4.46 L (4.70-6.10) M/uL Hgb 12.4 L Cancelled 12.6 L (14.0-18.0) g/dl Hct 38.1 L Cancelled 38.1 L (42.0-52.0) % Plt Count 227 Cancelled 255 (130-400) K/uL Neut # (Auto) 8.80 H (1.40-6.50) K/uL Lymph # (Auto) 0.63 L (1.20-3.40) K/uL Mora # (Auto) 1.01 H (0.11-0.59) K/uL Eos # (Auto) 0.00 (0.00-0.50) K/uL Baso # (Auto) 0.04 (0.00-0.20) K/uL Comprehensive Metabolic Panel 03/20/24 03/21/24 Range/Units 12:54 05:46 Sodium 132 L 138 (136-145) mmol/L Potassium 4.2 4.6 (3.5-5.1) mmol/L Chloride 95 L 103 (98-107) mmol/L Carbon Dioxide 29 27 (21-32) mmol/L BUN 16 20 (6-23) mg/dl Creatinine 1.10 1.04 (0.6-1.4) mg/dl Glucose 151 H 196 H (70-99(Fasting)) mg/dl Calcium 9.0 8.8 (8.6-10.3) mg/dl AST 31 (13-39) U/L ALT 68 H (7-52) U/L Alkaline Phosphatase 180 H (34-104) U/L Total Protein 7.3 (6.0-8.3) gm/dl Albumin 4.0 (3.4-5.0) gm/dl Intake and Output 03/20/24 03/21/24 03/21/24 22:59 06:59 14:59 Intake Total 255 / 905 600 / 905 Output Total 325 / 325 Balance 255 / 580 275 / 580 Intake: IV 255 / 305 Azithromycin 500 mg In Dextrose 255 / 255 5% 250 ml @ 125 mls/hr IV NOW ONE Rx#:[id number] Oral 600 / 600 Output: Urine 325 / 325 Other: # Unmeasured Voids 1 Diagnostic Findings Telemetry reviewed with heart rates in 140s (2) Mycoplasma pneumonia Laterality: bilateral Lung location: lower lobe of lung Qualified Code(s): J15.7 - Pneumonia due to Mycoplasma pneumoniae
[2024-03-21] MEDS ORDERED: GLUCAGON FOR INJ 1 MG VIAL SQ PRN (12:54)
[2024-03-21] MEDS ORDERED: DEXTROSE 50% 50 ML SYRINGE IV PRN (12:54)
[2024-03-21] MEDS ORDERED: GLUCOSE 10 TAB/TUBE PO PRN (12:54)
[2024-03-21] MEDS ORDERED: GLUCOSE 40% GEL 15 GM TUBE PO PRN (12:54)
[2024-03-21] MEDS ORDERED: CARBOHYDRATES FOR HYPOGLYCEMIA PO PRN (12:54)
[2024-03-21] MEDS ORDERED: Heparin IV Adult Wt-Based Standard *NO* INITIAL Bolus Protocol IV SCH (13:04)
[2024-03-21] MEDS: METOPROLOL TARTRATE 1 MG/ML VIAL IV PRN (13:28)
[2024-03-21] MEDS: HEPARIN SODIUM/DEXTROSE 25,000 UNITS/500 ML BAG IV SCH (13:38)
[2024-03-21 13:54] LABS: INR 1.1 (0.9-1.1)
--- NOTE | 2024-03-21 14:04 | Hospitalist Progress Note ---
Date of Service March 21, 2024 Assessment & Plan (1) Hypoxia: (2) Mycoplasma pneumoniae pneumonia: (3) Multifocal pneumonia: Plan: Patient presenting by referral of outpatient PCP office for evaluation of hypoxia, shortness of breath, cough, fever. In the ED, patient hypoxic on room air at 85%, currently requiring 2 L of oxygen via nasal cannula Multifocal pneumonia Hypoxia secondary to above --CXR:Cardiomegaly with mixed interstitial and alveolar opacities suggestive of multifocal pneumonia versus pulmonary edema. Normal procalcitonin Bio fire positive for Mycoplasma pneumoniae Blood cultures pending Continue broad-spectrum IV antibiotics given immunocompromise state. Currently on cefepime, doxycycline Continue supplemental oxygen as needed Pulmonary hygiene A-fib RVR New onset Normal TSH --Echo pending Continue metoprolol IV Lopressor as needed On IV heparin Plan to transition to [facility] as able Appreciate cardiology input DM II Recently diagnosed as outpatient Diet controlled HbA1c 7.3 Continue insulin while hospitalized Monitor blood glucose levels diabetes educator consulted (4) Elevated troponin: Plan: Mild troponin elevation likely demand ischemia in setting of acute infection, A- fib RVR Unlikely ACS Monitor (5) Diffuse large B cell lymphoma: Plan: Follows with oncology as outpatient (6) Dyer's syndrome: Plan: On oral chemo Ibrutinib -- hold for now due to active infection (7) HTN (hypertension): Plan: Continue losartan, metoprolol, amlodipine Resume HCTZ as able Monitor BP (8) HLD (hyperlipidemia): Plan: Chronic, stable Continue statin DVT Px IV heparin Admission and Anticipated Discharge Date Admission Date: March 20, 2024 Subjective Patient is seen and examined at bedside Cough, dyspnea better when compared to yesterday Denies any chest pain, palpitations, dizziness, nausea, vomiting, abdominal pain Family at bedside Review of Systems Review of Systems: All systems reviewed & are unremarkable except as noted in Subjective Physical Exam Physical Exam: Physical Exam: Vitals signs as noted above General Appearance:Moderately built and nourished, no apparent distress Head: normocephalic, Atraumatic Eyes: normal inspection, EOMI Neck: supple, Trachea midline Respiratory/Chest: Decreased breath sounds, CTA, No accessory muscle use Cardiovascular: Irregularly irregular, tachycardia,No murmur Abdomen/GI:Soft, Non tender, Bowel sounds present Extremities/Musculoskeletal:normal inspection, no edema Neurologic/Psych:AAOX3, grossly no focal neurological deficits Skin: normal color, warm Results & Data Results & Data Vital Signs (Past 12 Hours) Vital Signs Temp Pulse Pulse Resp BP BP Pulse Ox 03/21/24 13:45 103 H 123/72 03/21/24 13:28 118 H 126/67 03/21/24 13:21 110 H 17 93 03/21/24 11:25 36.9 C 127 H 16 114/71 94 03/21/24 08:30 03/21/24 07:15 106 H 15 96 03/21/24 07:09 99 H 03/21/24 04:54 102 H 155/88 H 03/21/24 04:31 121 H 147/70 H 03/21/24 04:23 121 H 147/70 H 03/21/24 02:36 127 H 03/21/24 02:10 118 H 119/77 03/21/24 02:04 118 H 18 119/77 92 O2 Del Method O2 Flow Rate 03/21/24 13:45 03/21/24 13:28 03/21/24 13:21 Room Air 03/21/24 11:25 Nasal Cannula 2 03/21/24 08:30 Nasal Cannula 2 03/21/24 07:15 Nasal Cannula 2 03/21/24 07:09 03/21/24 04:54 03/21/24 04:31 03/21/24 04:23 03/21/24 02:36 03/21/24 02:10 03/21/24 02:04 Nasal Cannula 2 Laboratory Results Short CBC 03/21/24 03/21/24 Range/Units 05:46 09:20 WBC Cancelled 13.30 H Hgb Cancelled 12.6 L Hct Cancelled 38.1 L Plt Count Cancelled 255 BMP 03/21/24 05:46 Sodium 138 Potassium 4.6 Chloride 103 Carbon Dioxide 27 BUN 20 Creatinine 1.04 Glucose 196 H Calcium 8.8
[2024-03-21] MEDS ORDERED: AZITHROMYCIN 500 MG in DEXTROSE 5% 250 ML IV SCH (15:00)
[2024-03-21] MEDS: INSULIN ASPART PER UNIT CHARGE SC SCH (18:03)
[2024-03-21] MEDS: METOPROLOL TARTRATE 50 MG TAB PO SCH (20:59)
[2024-03-21 21:23] LABS: ANTI-Xa, UFH(UnfractionatedHep 0.23 IU/ml (0.3-0.7)
[2024-03-22 04:30] LABS: Hematocrit (blood only) 36.7 % (42.0-52.0); Hemoglobin 11.8 g/dl (14.0-18.0); Mean Corpuscular Hemoglobin 28.2 pg (25.0-34.0); Mean Corpuscular Hgb Conc 32.2 g/dL (32.0-36.0); Mean Corpuscular Volume 87.8 fL (80.0-100.0); Mean Platelet Volume 9.6 fL (9.4-12.4); Nucleated RBC # (auto) 0.02 K/uL (0.00-0.12); Nucleated RBC % (auto) 0.2 %; Platelet Count 246 K/uL (130-400); RDW Coefficient of Variation 13.1 % (11.5-14.5); RDW Standard Deviation 41.7 fL (36.4-46.3); Red Blood Count 4.18 M/uL (4.70-6.10); White Blood Count 11.43 K/ul (4.8-10.8)
[2024-03-22 04:48] LABS: BUN Creatinine Ratio 21.4 (10-20); Calcium 8.3 mg/dl (8.6-10.3); Creatinine Clr Calc Pharmacy 76.6 ml/min; Est GFR (African American) 64.4 ml/min; Est GFR (Non-African American) 55.5 ml/min; Magnesium 2.1 mg/dl (1.7-2.4); Potassium 4.4 mmol/L (3.5-5.1)
[2024-03-22 04:54] LABS: ANTI-Xa, UFH(UnfractionatedHep 0.31 IU/ml (0.3-0.7)
--- NOTE | 2024-03-22 09:53 | Cardiology Progress Note ---
Date of Service March 22, 2024 Assessment & Plan (1) Paroxysmal atrial fibrillation: (2) Mycoplasma pneumonia: (3) HTN, goal below 130/80: Plan 68 yo man who presents with shortness of breath, cough, found to have pneumonia. Went into new onset afib with RVR, likely driven by acute illness. - Asymptomatic and euvolemic on exam, is requiring supplemental oxygen at this time - converted to sinus rhythm, heart rates better controlled, 70-80s on telemetry - continue metoprolol tartate 50 mg twice daily - continue to monitor on telemetry - [id number] score of 2 (age, HTN), discussed risks and benefits of anticoagulation, patient will need to discuss with heme/onc due to increased bleeding risk with ibrutinib, has appt already scheduled with them this week - 14 day Zio at discharge - arrange outpatient cardiology follow up Case discussed with supervising physician, further recommendations per Dr. Paulino. I spent a total of 30 minutes on the date of service in preparation, delivery, and documentation of the care provided to this patient excluding any time spent in the performance of separately billed services. This visit was a split-shared visit with the substantial portion of the decision making performed by the supervising cabinet and trim installer/billing provider. Admission and Anticipated Discharge Date Admission Date: March 20, 2024 Supervising Physician Co-Signing Physician Notes I have personally performed a history and physical examination on the patient. I have reviewed the advance practitioner's documentation, and I agree with, and take responsibility for the plan of care. I spent a total of 35 minutes on the date of service in preparation, delivery, and documentation of the care provided to this patient, excluding any time spent in the performance of separately billed services. 68-year-old male with a past medical history of CLL, HTN, prior history of prostate cancer, non-Hodgkin's lymphoma presented with symptoms of cough and found to have pneumonia. Patient converted back to sinus rhythm. He remains asymptomatic from a cardiac standpoint. He denies chest pain, dyspnea, or syncope. No clinical signs euvolemic. His echocardiogram shows preserved left ventricular ejection fraction with what appears to be asymmetric left ventricular hypertrophy but difficult to get accurate measurements due to difficult acoustic windows otherwise no significant valvular disease. He remains in sinus rhythm. Again had a long discussion with patient about anticoagulation. His Lonnie Vasc score is 2. patient is concerned about starting anticoagulation as he is on ibrutinib which also inhibits platelet function. Reviewing the literature and the data is very limited in regards to optimal anticoagulation selection in patients en route and able to develop atrial fibrillation. Patient would like to hold off on anticoagulation until he discusses this with his crap shooter. Will monitor for now. Will need a ZIO monitor on discharge. Would recommend getting hematology/oncology input on anticoagulation. Subjective On evaluation today, patient resting comfortably in bed. Denies chest pain, palpitations, shortness of breath, edema. On 1 L nasal cannula. Converted to sinus rhythm overnight, heart rates in 70s-80s on telemetry. updated at bedside. Review of Systems Review of Systems: CONSTITUTIONAL: No change in weight, No weakness, No fatigue and No fevers, No sweats or chills. PULMONARY: No cough, sputum, or hemoptysis, No wheezing, No shortness of breath and No recent change in breathing. CARDIOVASCULAR: No chest pain, No dyspnea on exertion, No edema, No palpitations and No syncope. GASTROINTESTINAL: No abdominal pain, No change in bowel habits, No significant heartburn, No nausea, No vomiting, No diarrhea, No constipation, No blood in stools or black tarry stools. No dysphagia. HEMATOLOGIC: No abnormal bleeding and No bruising. NEUROLOGICAL: Normal balance, No headaches and No weakness. Physical Exam Physical Exam: General: No acute distress. A+Ox3. HEENT: Normocephalic. Atraumatic. PERRL. EOMI. Conjunctiva and sclera clear. NECK: No carotid bruits. No JVD. Carotid upstrokes are brisk. Heart: RRR. S1 and S2 noted. No murmur. No rubs or gallops. PMI non displaced. Lungs: Clear to auscultation. No wheezes. No rhonchi. No rales. Abdomen: Normal bowel sounds. Soft. Nontender. No masses or organomegaly. No abdominal bruits. Extremities: No edema. No clubbing or cyanosis. Pulses: radial=2/4, posterior tibial=2/4, dorsalis pedis = 2/4. NEURO: No focal deficits. PSYCH: Appropriate affect and insight. Results & Data Vital Signs (Past 12 Hours) Vital Signs Temp Pulse Pulse Resp BP Pulse Ox O2 Del Method 03/22/24 07:48 36.7 C 88 16 166/81 H 91 Nasal Cannula 03/22/24 07:25 73 03/22/24 07:01 88 18 93 Room Air 03/22/24 02:48 37.2 C 79 18 151/71 H 96 Nasal Cannula 03/21/24 23:11 36.8 C 75 16 122/71 91 Nasal Cannula 03/21/24 22:00 89 O2 Flow Rate 03/22/24 07:48 1 03/22/24 07:25 03/22/24 07:01 03/22/24 02:48 2 03/21/24 23:11 2 03/21/24 22:00 Laboratory Results Coagulation 03/21/24 Range/Units 13:12 PT 12.0 (9.0-12.0) Seconds CBC 03/22/24 Range/Units 04:04 WBC 11.43 H (4.8-10.8) K/ul RBC 4.18 L (4.70-6.10) M/uL Hgb 11.8 L (14.0-18.0) g/dl Hct 36.7 L (42.0-52.0) % Plt Count 246 (130-400) K/uL Comprehensive Metabolic Panel 03/22/24 Range/Units 04:04 Sodium 138 (136-145) mmol/L Potassium 4.4 (3.5-5.1) mmol/L Chloride 102 (98-107) mmol/L Carbon Dioxide 28 (21-32) mmol/L BUN 28 H (6-23) mg/dl Creatinine 1.31 (0.6-1.4) mg/dl Glucose 174 H (70-99(Fasting)) mg/dl Calcium 8.3 L (8.6-10.3) mg/dl Intake and Output 03/21/24 03/22/24 03/22/24 22:59 06:59 14:59 Intake Total 768 / 1897.867 477.867 / 1897.867 Output Total 701 / 1001 300 / 1001 Balance 67 / 896.867 177.867 / 896.867 Intake: IV 288 / 1217.867 277.867 / 1217.867 Heparin Sodium/Dextrose 25,000 288 / 565.867 277.867 / 565.867 units In 500 ml @ 1,900 UNITS/ HR 38 mls/hr IV .[id number] [facility] Rx #:[id number] Oral 480 / 680 200 / 680 Output: Urine 700 / 1000 300 / 1000 # Bowel Movements Other: Weight 124 kg Weight Measurement Method Built in [facility] Diagnostic Findings Echo with normal LVEF 60-64%, no significant valvular disease, possible LVH although difficult to determine due to difficult acoustic windows. (2) Mycoplasma pneumonia Laterality: bilateral Lung location: lower lobe of lung Qualified Code(s): J15.7 - Pneumonia due to Mycoplasma pneumoniae
--- NOTE | 2024-03-22 14:56 | Hospitalist Progress Note ---
Date of Service March 22, 2024 Assessment & Plan (1) Hypoxia: (2) Mycoplasma pneumoniae pneumonia: (3) Multifocal pneumonia: Plan: Patient presenting by referral of outpatient PCP office for evaluation of hypoxia, shortness of breath, cough, fever. In the ED, patient hypoxic on room air at 85%, currently requiring 2 L of oxygen via nasal cannula Multifocal pneumonia Hypoxia secondary to above --CXR:Cardiomegaly with mixed interstitial and alveolar opacities suggestive of multifocal pneumonia versus pulmonary edema. Normal procalcitonin Bio fire positive for Mycoplasma pneumoniae Blood cultures negative to date Continue broad-spectrum IV antibiotics given immunocompromise state. Currently on cefepime, doxycycline Continue supplemental oxygen as needed Pulmonary hygiene Leukocytosis trending down Clinically improving Saturating low 90s on room air May need 2 step prior to discharge A-fib RVR New onset Normal TSH --Echo: EF 60 to 65%. There appears to be asymmetric left ventricular hypertrophy but difficult to get accurate measurements of the septum due to difficult acoustic windows. Right ventricle cavity size is normal. Right ventricle systolic function is normal. No significant valvular disease. --Spontaneously converted to sinus Continue metoprolol IV Lopressor as needed Discussed risks versus benefits of being on anticoagulation. Given increased bleeding risk with her ibrutinib, decision was made to discontinue IV anticoagulation for now Patient and family understands and agrees with the plan. Appreciate cardiology input Needs Zio monitor as outpatient DM II Recently diagnosed as outpatient Diet controlled HbA1c 7.3 Continue insulin while hospitalized Monitor blood glucose levels personal development educator consulted (4) Elevated troponin: Plan: Mild troponin elevation likely demand ischemia in setting of acute infection, A- fib RVR Unlikely ACS Monitor (5) Diffuse large B cell lymphoma: Plan: Follows with oncology as outpatient (6) Dyer's syndrome: Plan: On oral chemo Ibrutinib -- hold for now due to active infection (7) HTN (hypertension): Plan: Continue losartan, metoprolol, amlodipine Resume HCTZ Monitor BP (8) HLD (hyperlipidemia): Plan: Chronic, stable Continue statin DVT Px SQ heparin Admission and Anticipated Discharge Date Admission Date: March 20, 2024 Subjective Patient is seen and examined at bedside States feeling better today Spontaneously converted to sinus Discussed with cardiology today Cough, dyspnea improving No new complaints Denies any chest pain, palpitations, dizziness, nausea, vomiting, abdominal pain Patient's family at bedside Review of Systems Review of Systems: All systems reviewed & are unremarkable except as noted in Subjective Physical Exam Physical Exam: Physical Exam: Vitals signs as noted above General Appearance:Moderately built and nourished, no apparent distress Head: normocephalic, Atraumatic Eyes: normal inspection, EOMI Neck: supple, Trachea midline Respiratory/Chest: Decreased breath sounds, CTA, No accessory muscle use Cardiovascular: S1-S2, No murmur Abdomen/GI:Soft, Non tender, Bowel sounds present Extremities/Musculoskeletal:normal inspection, no edema Neurologic/Psych:AAOX3, grossly no focal neurological deficits Skin: normal color, warm Results & Data Results & Data Vital Signs (Past 12 Hours) Vital Signs Temp Pulse Pulse Resp BP Pulse Ox O2 Del Method 03/22/24 14:12 71 03/22/24 12:47 71 18 94 Room Air 03/22/24 11:55 36.8 C 72 16 174/76 H 95 Nasal Cannula 03/22/24 07:48 36.7 C 88 16 166/81 H 91 Nasal Cannula 03/22/24 07:25 73 03/22/24 07:01 88 18 93 Room Air O2 Flow Rate 03/22/24 14:12 03/22/24 12:47 03/22/24 11:55 1 03/22/24 07:48 1 03/22/24 07:25 03/22/24 07:01 Laboratory Results Short CBC 03/22/24 Range/Units 04:04 WBC 11.43 H (4.8-10.8) K/ul Hgb 11.8 L (14.0-18.0) g/dl Hct 36.7 L (42.0-52.0) % Plt Count 246 (130-400) K/uL BMP 03/22/24 04:04 Sodium 138 Potassium 4.4 Chloride 102 Carbon Dioxide 28 BUN 28 H Creatinine 1.31 Glucose 174 H Calcium 8.3 L
[2024-03-22] MEDS: HEPARIN SOD 5,000 UNIT/0.5 ML VIAL SQ SCH (20:27)
[2024-03-23 06:36] LABS: Hematocrit (blood only) 36.6 % (42.0-52.0); Hemoglobin 11.7 g/dl (14.0-18.0); Mean Corpuscular Hemoglobin 27.7 pg (25.0-34.0); Mean Corpuscular Volume 86.7 fL (80.0-100.0); Mean Platelet Volume 9.8 fL (9.4-12.4); Platelet Count 231 K/uL (130-400); RDW Coefficient of Variation 12.8 % (11.5-14.5); RDW Standard Deviation 40.5 fL (36.4-46.3); Red Blood Count 4.22 M/uL (4.70-6.10); White Blood Count 7.18 K/ul (4.8-10.8)
[2024-03-23 06:46] LABS: BUN Creatinine Ratio 19.5 (10-20); Calcium 8.7 mg/dl (8.6-10.3); Creatinine Clr Calc Pharmacy 88.4 ml/min; Est GFR (Non-African American) 66.4 ml/min; Magnesium 2.1 mg/dl (1.7-2.4); Potassium 4.3 mmol/L (3.5-5.1)
[2024-03-23 07:07] LABS: ANTI-Xa, UFH(UnfractionatedHep < 0.10 IU/ml (0.3-0.7)
[2024-03-23] MEDS: hydroCHLOROthiazide 25 MG TAB PO SCH (08:05)
--- NOTE | 2024-03-23 11:24 | Cardiology Progress Note ---
Date of Service March 23, 2024 Assessment & Plan (1) Paroxysmal atrial fibrillation: (2) Mycoplasma pneumonia: (3) HTN, goal below 130/80: Plan 68 yo man who presents with shortness of breath, cough, found to have pneumonia. Went into new onset afib with RVR, likely driven by acute illness. - Patient remains asymptomatic and euvolemic -Review of telemetry demonstrates that patient remains in NSR with no recurrence of A-fib events. HR 70's-80's - continue metoprolol tartrate 50 mg twice daily - continue to monitor on telemetry - [id number] score of 2 (age, HTN), discussed risks and benefits of anticoagulation, patient will be discussing with heme/onc due to increased bleeding risk with ibrutinib, has appt already scheduled with them this week. given his maintained NSR, would recommend that this be a discussion point should he have more episodes in the future. - 14 day Zio at discharge - arrange outpatient cardiology follow up -Patient is doing well from a cardiovascular perspective. No other testing is needed in the Inpatient setting. Please arrange for 14 day zio as stated above. -OP follow up with Cardiology in 4-6 weeks. patient is ok for discharge from a cardiovascular standpoint when ok with primary team. Case has been discussed with Dr. Wolfe. Further recommendations regarding plan of care as per his assessment. I spent a total of 30 minutes on the date of service in preparation, delivery, documentation of the care provided to the patient excluding any time spent in the performance of separately billed services. SHAAN Covington [facility] Cardiology [facility] Admission and Anticipated Discharge Date Admission Date: March 20, 2024 Supervising Physician Co-Signing Physician Notes Case discussed with SHAAN Saavedra and agree with findings and plans as documented. Pt discharged prior to me having the opportunity to examine him in person. Marisol Wolfe , Subjective 03/23/2024: Patient seen and examined in follow up today. Feeling well. He offers no cardiac questions or concerns. Labs, vitals, diagnostics, telemetry and documentation reviewed. Telemetry reviewed showing SR with no acute events overnight. Rates 70-80's. No A-fib events. patient is resting comfortably in bed, denies any chest pain, pressure, palpitations, shortness of breath, PND, pre-syncope, syncope or edema. he carries a weak dry cough. Review of Systems Review of Systems: All systems reviewed & are unremarkable except as noted in HPI & below Physical Exam Constitutional: well developed and well nourished; no acute distress and not ill appearing Neck: normal visual inspection and trachea midline Respiratory: normal respiratory effort, lungs clear to auscultation + cough (intermittent dry, non-productive cough) Auscultation: no crackles, no rales, no rhonchi and no wheezes Cardiovascular: RRR, no murmur, no edema Heart Sounds: normal S1 and normal S2; no murmur Vessels: dorsalis pedis pulses present; no JVD Extremities: no edema Skin: no rashes, warm and dry Psychiatric: A+Ox3, euthymic affect Results & Data Vital Signs (Past 12 Hours) Vital Signs Temp Pulse Pulse Pulse Pulse Resp Resp 03/23/24 11:17 37.0 C 77 16 03/23/24 11:17 95 H 82 22 03/23/24 10:00 74 03/23/24 07:45 36.7 C 84 16 03/23/24 07:05 78 03/23/24 03:03 37.2 C 73 16 Resp BP Pulse Ox Pulse Ox Pulse Ox O2 Del Method 03/23/24 11:17 155/76 H 95 Room Air 03/23/24 11:17 16 90 93 03/23/24 10:00 03/23/24 07:45 175/66 H 93 Room Air 03/23/24 07:05 93 Room Air 03/23/24 03:03 138/68 94 Room Air Laboratory Results CBC 03/23/24 Range/Units 05:44 WBC 7.18 (4.8-10.8) K/ul RBC 4.22 L (4.70-6.10) M/uL Hgb 11.7 L (14.0-18.0) g/dl Hct 36.6 L (42.0-52.0) % Plt Count 231 (130-400) K/uL Comprehensive Metabolic Panel 03/23/24 Range/Units 05:44 Sodium 138 (136-145) mmol/L Potassium 4.3 (3.5-5.1) mmol/L Chloride 102 (98-107) mmol/L Carbon Dioxide 29 (21-32) mmol/L BUN 22 (6-23) mg/dl Creatinine 1.13 (0.6-1.4) mg/dl Glucose 160 H (70-99(Fasting)) mg/dl Calcium 8.7 (8.6-10.3) mg/dl Intake and Output 03/22/24 03/23/24 03/23/24 22:59 06:59 14:59 Intake Total 120 / 1386.433 120 / 1386.433 Balance 120 / 1386.433 120 / 1386.433 Intake: Oral 120 / 1040 120 / 1040 Other: Weight 122.9 kg Weight Measurement Method Standing Scale (2) Mycoplasma pneumonia Laterality: bilateral Lung location: lower lobe of lung Qualified Code(s): J15.7 - Pneumonia due to Mycoplasma pneumoniae
--- NOTE | 2024-03-23 12:04 | Hospitalist Progress Note ---
Date of Service March 23, 2024 Assessment & Plan (1) Hypoxia: (2) Mycoplasma pneumoniae pneumonia: (3) Multifocal pneumonia: Plan: Patient presenting by referral of outpatient PCP office for evaluation of hypoxia, shortness of breath, cough, fever. In the ED, patient hypoxic on room air at 85%, currently requiring 2 L of oxygen via nasal cannula Multifocal pneumonia Hypoxia secondary to above --CXR:Cardiomegaly with mixed interstitial and alveolar opacities suggestive of multifocal pneumonia versus pulmonary edema. Normal procalcitonin Bio fire positive for Mycoplasma pneumoniae Blood cultures negative to date Continue broad-spectrum IV antibiotics given immunocompromise state. Currently on cefepime, doxycycline Weaned off of supplemental oxygen Pulmonary hygiene 2 step: Did not qualify for oxygen Given immunocompromise state, patient will require 14-day course of doxycycline Plan to discharge on p.o. antibiotics to complete the course A-fib RVR New onset Normal TSH --Echo: EF 60 to 65%. There appears to be asymmetric left ventricular hypertrophy but difficult to get accurate measurements of the septum due to difficult acoustic windows. Right ventricle cavity size is normal. Right ventricle systolic function is normal. No significant valvular disease. --Spontaneously converted to sinus Continue metoprolol IV Lopressor as needed Discussed risks versus benefits of being on anticoagulation. Given increased bleeding risk with her ibrutinib, decision was made to discontinue IV anticoagulation for now Patient and family understands and agrees with the plan. 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 -- hold for now due to active infection (7) HTN (hypertension): Plan: Continue losartan, metoprolol, amlodipine Resume HCTZ Monitor BP (8) HLD (hyperlipidemia): Plan: Chronic, stable Continue statin DVT Px SQ heparin Admission and Anticipated Discharge Date Admission Date: March 20, 2024 Subjective Patient is seen and examined at bedside No new complaints Cough much improved Denies any dyspnea Saturating well on room air Had 2 step earlier today Denies any chest pain, palpitations, dizziness, nausea, vomiting, abdominal pain Plan to discharge home today Review of Systems Review of Systems: All systems reviewed & are unremarkable except as noted in Subjective Physical Exam Physical Exam: Physical Exam: Vitals signs as noted above General Appearance:Moderately built and nourished, no apparent distress Head: normocephalic, Atraumatic Eyes: normal inspection, EOMI Neck: supple, Trachea midline Respiratory/Chest: Decreased breath sounds, CTA, No accessory muscle use Cardiovascular: S1-S2, No murmur Abdomen/GI:Soft, Non tender, Bowel sounds present Extremities/Musculoskeletal:normal inspection, no edema Neurologic/Psych:AAOX3, grossly no focal neurological deficits Skin: normal color, warm Results & Data Results & Data Vital Signs (Past 12 Hours) Vital Signs Temp Pulse Pulse Pulse Pulse Resp Resp 03/23/24 11:17 37.0 C 77 16 03/23/24 11:17 95 H 82 22 03/23/24 10:00 74 03/23/24 07:45 36.7 C 84 16 03/23/24 07:05 78 03/23/24 03:03 37.2 C 73 16 Resp BP Pulse Ox Pulse Ox Pulse Ox O2 Del Method 03/23/24 11:17 155/76 H 95 Room Air 03/23/24 11:17 16 90 93 03/23/24 10:00 03/23/24 07:45 175/66 H 93 Room Air 03/23/24 07:05 93 Room Air 03/23/24 03:03 138/68 94 Room Air Laboratory Results Short CBC 03/23/24 Range/Units 05:44 WBC 7.18 (4.8-10.8) K/ul Hgb 11.7 L (14.0-18.0) g/dl Hct 36.6 L (42.0-52.0) % Plt Count 231 (130-400) K/uL BMP 03/23/24 05:44 Sodium 138 Potassium 4.3 Chloride 102 Carbon Dioxide 29 BUN 22 Creatinine 1.13 Glucose 160 H Calcium 8.7
[2024-03-23] MEDS ORDERED: FAMOTIDINE 10 MG TABLET PO PRN (12:16)
--- NOTE | 2024-03-23 12:21 | Discharge Summary ---
Date of Service March 23, 2024 Admission HPI Per Admitting Provider 68-year-old male with PMH dyslipidemia, HTN, prostate cancer, diffuse large B- cell lymphoma on oral chemotherapy, Dyer's syndrome, and other problems listed below who presents to the ED by referral of outpatient office for evaluation of fever, shortness of breath, cough. History is obtained from the patient and review of outpatient PCP and oncology records. Patient reports he has been feeling sick for about the past 1 week. He has had progressive worsening shortness of breath and cough. Reports cough has been productive however he is unsure of the color. Reports running fevers throughout the past week, states fever was 101.9 yesterday. He has had a poor appetite but denies nausea, vomiting, abdominal pain, diarrhea. No chest pain. Denies lightheadedness, dizziness, diaphoresis, syncopal events. No urinary symptoms. Patient reports his grandson had cold-like symptoms, no other sick contacts or recent travel. Patient was evaluated in outpatient family practice office today and was found to be 70% on room air. Patient was referred to the ED for further evaluation. In the ED, patient was hypoxic on room air at 85%, currently requiring 2 L of oxygen via nasal cannula. Bio fire positive for mycoplasma pneumonia. CXR showing multifocal pneumonia. Patient was given nebulizer, IV azithromycin, IV ceftriaxone, IV Solu-Medrol. Admission Exam Per Admitting Provider Constitutional: WD/WN, vitals as above no acute distress Eyes: PERRL, conjunctivae normal, anicteric sclerae ENMT: external ear and nose normal, oropharynx normal Respiratory: normal respiratory effort; no respiratory distress Auscultation: + diminished lung sounds Cardiovascular: Rate/Rhythm: regular rate and regular rhythm Vessels: normal peripheral pulses Extremities: no edema Gastrointestinal (Abdomen): normal bowel sounds, soft, nontender, no hepatosplenomegaly Musculoskeletal: no cyanosis or clubbing, extremities motor strength 5/5 Skin: no rashes, warm and dry Neurologic: PERRL, EOMI, accommodation nl, no face palsy, no dysarthria Psychiatric: A+Ox3, euthymic affect Principal Diagnosis Multifocal pneumonia Hypoxia Atrial fibrillation with rapid ventricular response Diabetes mellitus type 2 Hypertension Discharge Data Allergies Allergy/AdvReac Type Severity Reaction Status Date / Time No Known Allergies Allergy Unverified 04/23/19 21:07 Consultations 03/20/24 14:05 ED Decision to Admit Stat 03/21/24 01:56 Consult Cardiology Routine Procedures Performed Laboratory Results WBC 7.18 K/ul (4.8-10.8) 03/23/24 05:44 RBC 4.22 M/uL (4.70-6.10) L 03/23/24 05:44 Hgb 11.7 g/dl (14.0-18.0) L 03/23/24 05:44 Hct 36.6 % (42.0-52.0) L 03/23/24 05:44 MCV 86.7 fL (80.0-100.0) 03/23/24 05:44 MCH 27.7 pg (25.0-34.0) 03/23/24 05:44 MCHC 32.0 g/dL (32.0-36.0) 03/23/24 05:44 RDW Std Deviation 40.5 fL (36.4-46.3) 03/23/24 05:44 RDW Coeff of [place] 12.8 % (11.5-14.5) 03/23/24 05:44 Plt Count 231 K/uL (130-400) 03/23/24 05:44 MPV 9.8 fL (9.4-12.4) 03/23/24 05:44 Immature Gran % (Auto) 0.9 % 03/20/24 12:54 Neut % (Auto) 83.2 % 03/20/24 12:54 Lymph % (Auto) 6.0 % 03/20/24 12:54 [place] % (Auto) 9.5 % 03/20/24 12:54 Eos % (Auto) 0.0 % 03/20/24 12:54 Baso % (Auto) 0.4 % 03/20/24 12:54 Neut # (Auto) 8.80 K/uL (1.40-6.50) H 03/20/24 12:54 Lymph # (Auto) 0.63 K/uL (1.20-3.40) L 03/20/24 12:54 [place] # (Auto) 1.01 K/uL (0.11-0.59) H 03/20/24 12:54 Eos # (Auto) 0.00 K/uL (0.00-0.50) 03/20/24 12:54 Baso # (Auto) 0.04 K/uL (0.00-0.20) 03/20/24 12:54 Immature Gran # (Auto) 0.10 K/uL (0.01-0.20) 03/20/24 12:54 Absolute Nucleated RBC 0.02 K/uL (0.00-0.12) 03/22/24 04:04 Nucleated RBC % (auto) 0.2 % 03/22/24 04:04 Platelet Estimate Cancelled 03/21/24 05:46 PT 12.0 Seconds (9.0-12.0) 03/21/24 13:12 INR 1.1 (0.9-1.1) 03/21/24 13:12 APTT 26 Seconds (21-31) 03/21/24 05:46 PTT Ratio 1.0 03/21/24 05:46 Heparin Anti-Xa, Unfract < 0.10 IU/ml (0.3-0.7) L 03/23/24 05:44 Sodium 138 mmol/L (136-145) 03/23/24 05:44 Potassium 4.3 mmol/L (3.5-5.1) 03/23/24 05:44 Chloride 102 mmol/L (98-107) 03/23/24 05:44 Carbon Dioxide 29 mmol/L (21-32) 03/23/24 05:44 Anion Gap 7 (3-11) 03/23/24 05:44 BUN 22 mg/dl (6-23) 03/23/24 05:44 Creatinine 1.13 mg/dl (0.6-1.4) 03/23/24 05:44 Est Cr Clr Drug Dosing 88.4 ml/min 03/23/24 05:44 Est GFR ( Amer) 77.0 ml/min 03/23/24 05:44 Est GFR (Non-Af Amer) 66.4 ml/min 03/23/24 05:44 BUN/Creatinine Ratio 19.5 (10-20) 03/23/24 05:44 Glucose 160 mg/dl (70-99(Fasting)) H 03/23/24 05:44 POC Glucose 166 mg/dl (70-99) H 03/23/24 07:59 Estimat Average Glucose 163 mg/dl 03/21/24 09:20 Hemoglobin A1c 7.3 % (4.5-5.6) H 03/21/24 09:20 Lactate 1.0 mmol/L (0.4-2.0) 03/20/24 13:58 Calcium 8.7 mg/dl (8.6-10.3) 03/23/24 05:44 Magnesium 2.1 mg/dl (1.7-2.4) 03/23/24 05:44 Total Bilirubin 2.2 mg/dl (0.2-1.0) H 03/20/24 12:54 AST 31 U/L (13-39) 03/20/24 12:54 ALT 68 U/L (7-52) H 03/20/24 12:54 Alkaline Phosphatase 180 U/L (34-104) H 03/20/24 12:54 Troponin I High Sens 31.8 pg/ml (0-20) H 03/21/24 05:46 B-Natriuretic Peptide 61 pg/ml (0-100) 03/20/24 14:05 Total Protein 7.3 gm/dl (6.0-8.3) 03/20/24 12:54 Albumin 4.0 gm/dl (3.4-5.0) 03/20/24 12:54 Globulin 3.3 gm/dl (2.5-4.0) 03/20/24 12:54 Albumin/Globulin Ratio 1.2 (0.9-2) 03/20/24 12:54 Procalcitonin 0.05 ng/ml (0-0.5) 03/21/24 09:20 TSH 1.632 uIu/ml (0.300-4.500) 03/20/24 15:08 Nasal Screen MRSA (PCR) Negative (Negative) 03/21/24 Unknown Adenovirus (PCR) Not Detected (NotDetected) 03/20/24 12:54 B. pertussis DNA (PCR) Not Detected (NotDetected) 03/20/24 12:54 B.parapertussis DNA PCR Not Detected (NotDetected) 03/20/24 12:54 C. pneumoniae DNA (PCR) Not Detected (NotDetected) 03/20/24 12:54 Coronavirus OC43 (PCR) Not Detected (NotDetected) 03/20/24 12:54 Coronavirus HKU1 (PCR) Not Detected (NotDetected) 03/20/24 12:54 Coronavirus 229E (PCR) Not Detected (NotDetected) 03/20/24 12:54 SARS-CoV-2 (PCR) Not Detected (NotDetected) 03/20/24 12:54 Coronavirus NL63 (PCR) Not Detected (NotDetected) 03/20/24 12:54 Human Metapneumovir PCR Not Detected (NotDetected) 03/20/24 12:54 Influenza Type A (PCR) Not Detected (NotDetected) 03/20/24 12:54 Influenza Type B (PCR) Not Detected (NotDetected) 03/20/24 12:54 Urine Legionella Ag SEE NOTE 03/21/24 02:05 M. pneumoniae (PCR) DETECTED (NotDetected) A 03/20/24 12:54 Parainfluenza 1 (PCR) Not Detected (NotDetected) 03/20/24 12:54 Parainfluenza 2 (PCR) Not Detected (NotDetected) 03/20/24 12:54 Parainfluenza 3 (PCR) Not Detected (NotDetected) 03/20/24 12:54 Parainfluenza 4 (PCR) Not Detected (NotDetected) 03/20/24 12:54 RSV (PCR) Not Detected (NotDetected) 03/20/24 12:54 Entero/Rhino (PCR) Not Detected (NotDetected) 03/20/24 12:54 Impressions Chest X-Ray 03/20/24 12:51 XR chest 1V portable HISTORY: 68 years-old Male Chest pain, nonspecific COMPARISON: 04/23/2019 TECHNIQUE: AP view of the chest FINDINGS: Cardiac silhouette is enlarged. Mixed interstitial and alveolar opacities of the lungs are new from prior. Status post removal of the Pzrmmi-c-Ihqg catheter. No pneumothorax or pleural effusion. IMPRESSION: Cardiomegaly with mixed interstitial and alveolar opacities suggestive of multifocal pneumonia versus pulmonary edema. ACT 112: Negative or not required by law. The above report was generated using voice recognition software. It may contain grammatical, syntax or spelling errors. Electronically signed by: Kvng Currie M.D. 03/20/2024 1:26 PM Hospital Course (1) Hypoxia: (2) Mycoplasma pneumoniae pneumonia: (3) Multifocal pneumonia: Patient presenting by referral of outpatient PCP office for evaluation of hyp oxia, shortness of breath, cough, fever. In the ED, patient hypoxic on room air at 85%, currently requiring 2 L of oxygen via nasal cannula Multifocal pneumonia Hypoxia secondary to above --CXR:Cardiomegaly with mixed interstitial and alveolar opacities suggestive of multifocal pneumonia versus pulmonary edema. Normal procalcitonin Bio fire positive for Mycoplasma pneumoniae Blood cultures negative to date Continue broad-spectrum IV antibiotics given immunocompromise state. Currently on cefepime, doxycycline Weaned off of supplemental oxygen Pulmonary hygiene 2 step: Did not qualify for oxygen Given immunocompromise state, patient will require 14-day course of doxycycline Plan to discharge on p.o. antibiotics to complete the course A-fib RVR New onset Normal TSH --Echo: EF 60 to 65%. There appears to be asymmetric left ventricular hypertrophy but difficult to get accurate measurements of the septum due to difficult acoustic windows. Right ventricle cavity size is normal. Right ventricle systolic function is normal. No significant valvular disease. --Spontaneously converted to sinus Continue metoprolol IV Lopressor as needed Discussed risks versus benefits of being on anticoagulation. Given increased bleeding risk with her ibrutinib, decision was made to discontinue IV anticoagulation for now Patient and family understands and agrees with the plan. Appreciate cardiology input Needs Zio monitor as outpatient Needs follow-up with cardiology on discharge DM II Recently diagnosed as outpatient Diet controlled HbA1c 7.3 Continue insulin while hospitalized Monitor blood glucose levels coding educator consulted (4) Elevated troponin: Mild troponin elevation likely demand ischemia in setting of acute infection, A- fib RVR Unlikely ACS Monitor (5) Diffuse large B cell lymphoma: Follows with oncology as outpatient (6) Dyer's syndrome: On oral chemo Ibrutinib -- hold for now due to active infection (7) HTN (hypertension): Continue losartan, metoprolol, amlodipine Resume HCTZ Monitor BP (8) HLD (hyperlipidemia): Chronic, stable Continue statin DVT Px SQ heparin Total Time Total Time Spent Total Time Spent (In Minutes): 54 minutes Discharge Plan Discharge Items Patient Disposition: Home - Self-Care Reason For Visit: HYPOXIA, PNEUMONIA Discharge Diagnosis: Multifocal pneumonia Hypoxia Atrial fibrillation with rapid ventricular response Diabetes mellitus type 2 Hypertension Condition on Discharge: Fair Activity: Per Instructions section Exercise/Sports: Wait until after follow-up appointment Non-emergency contact: Primary Care Provider and Face Man Call non-emergency contact if: you have any medication questions, your symptoms worsen, your pain is concerning for you and you have a fever Follow-up/Referrals: Armando Hayawrd MD [Primary Care Provider] - (Date & Time 03/30/2024 11:00 AM Provider Armando Hayward MD Department [facility] ) Jn Fagan MD [Outside Practitioners] - (Date & Time 03/26/2024 11:30 AM Provider Jn Fagan MD Department Hematology Oncology [facility] [place] ) Shante Mccall PA-C [Physician [employer]] - (The Cardiology office will contact you for a follow up appointment/testing.) Diet: Carb Consistent or DM2 and Heart Healthy Addtl Attending Provider Instructions: Follow-up with your primary care physician Dr. Hayward in 1 week Follow-up with your circulation man in 3 to 4 weeks Follow-up with your oncologist to discuss about anticoagulation for atrial fibrillation as recommended --Complete the antibiotic course (cefuroxime, doxycycline ) as prescribed. You are prescribed a longer course of antibiotics given your immunocompromise state and your infection with mycoplasma. --Your final blood cultures are pending at the time of discharge. Follow-up with your physician for results. --Get ZIO monitor arranged as outpatient as recommended by your circulation man. --Monitor your blood pressure and glucose levels regularly as advised. Discuss with your physician for further adjustment of medications as needed. Seek immediate medical attention if your symptoms reoccur or worsen Please take all medications as instructed on discharge list below. Please call if you have any questions or problems. You can reach a [facility] hospitalist on duty at [facility] 24 hours a day by calling [phone] Pending Studies at Discharge: Yes Studies:: Blood cultures Stand-Alone Forms: My [facility] [employer], Smoking Cessation Medications and DC Order Prescriptions: New doxycycline hyclate 100 mg Capsule 100 mg PO BID Qty: 23 0RF metoprolol tartrate 50 mg Tablet 50 mg PO BID Qty: 60 1RF guaifenesin [Mucinex] 600 mg Tablet Extended Release 12hr 600 mg PO Q12 Qty: 6 0RF cefuroxime axetil 500 mg tablet 500 mg PO BID Qty: 9 0RF famotidine [Acid Rag Cutting Machine Tender (famotidine)] 10 mg Tablet 10 mg PO BID PRN (Reason: heartburn) Qty: 15 0RF Advanced Probiotic 625 mg (10 billion cell) Capsule 1 cap PO DAILY Qty: 30 0RF Continued pravastatin 80 mg tablet 80 mg PO HS losartan 100 mg tablet 100 mg PO HS coenzyme Q10 400 mg Capsule 400 mg PO DAILY multivitamin Tablet 1 tab PO DAILY omega-3 fatty acids [Fish Oil Concentrate] 1,000 mg Capsule 1,000 mg PO DAILY amlodipine 5 mg tablet 5 mg PO DAILY gabapentin 300 mg capsule 300 mg PO HS hydrochlorothiazide 25 mg tablet 25 mg PO DAILY Imbruvica 420 mg tablet 420 mg PO HS Discharge Orders: Discharge Order (Routine); Ordered 03/23/24 Ordered By: John Colindres/Other Patient Handouts: Diabetes: Meal Planning, Type 2 Diabetes Admission Data Admit Date/Time: 03/20/24 14:33 Attending Provider: John Davis Admit Provider: Ozzy Kaplan Primary Care Provider: Armando Hayward Other Providers: Ozzy Kaplan; Elis Cheng; Neal Wolfe; Basim Falcon; Forrest Tate; [place]; Raul Reed; Edelmira Jeffries; Violetta Hernnádez; Carmen Yadav; Elis Gonzales; Geovani Mares; Rome Paulino; Karolina Lomas; Shante Mccall; Nunu Garcia; Nahed Matias; Charles Qureshi; Camelia Aden
[2024-03-23] MEDS ORDERED: ADVANCED PROBIOTIC 625 MG CAPSULE PO SCH (12:30)
== END 2024-03-23 14:36 | disposition home or self-care (01) | DRG 193 ==
LOC: ED 11:44 → EDINP 14:33 → SUATTDRO 14:33 → EDINP 15:30 → 2N 21:50